=== PATIENT | female | born 1960 | race Caucasian/White ===

== ENCOUNTER 2016-12-27 12:13 | Inpatient (IN) | payer OTHER ==
[2016-12-27] MEDS ORDERED: SODIUM CHLORIDE 0.9% 1,000 ML IV STA ×2 (12:42)
[2016-12-27] MEDS ORDERED: PANTOPRAZOLE 40 MG/10 ML VIAL IVP STA (12:42)
--- NOTE | 2016-12-27 12:51 | ED ---
General Adult HPI - General Chief complaint: Abdominal Pain Stated complaint: VOMITING, DIABETIC PATIENT Time Seen by Provider: 12/27/16 12:42 Source: patient, family, RN notes reviewed, old records reviewed - History of Present Illness Initial comments: Chief complaint and history of present illness a 56-year-old female who has had nausea vomiting for 2 days. The patient is diabetic. Sugar here was 200. She had one syncopal episode at home and one syncopal episode in the waiting room. She did not fall and did not reportedly hurt her head. She does have a past history of DKA - Related Data Home Medications Medication Instructions Recorded Confirmed Gabapentin [Gabapentin] 300 mg PO BID 06/17/16 12/27/16 Insulin Glargine [Lantus] 5 unit SQ BID 06/17/16 12/27/16 Methadone [Dolophine] 10 mg PO QID 06/17/16 12/27/16 Prochlorperazine [Compazine] 10 mg PO Q8H PRN 12/27/16 12/27/16 Allergies Allergy/AdvReac Type Severity Reaction Status Date / Time Penicillins Allergy Severe Anaphylaxis Verified 12/27/16 13:16 metoclopramide HCl Allergy Unknown Verified 12/27/16 13:16 [From [facility]] Review of Systems ROS Statement: Those systems with pertinent positive or pertinent negative responses have been documented in the HPI. Review of systems. Denying any headache or visual acuity changes no chest pain or shortness of breath she has epigastric discomfort nausea vomiting no blood in the vomit at home with slightly reddened here. Reports she has been having bowel movements but not diarrhea. No skin rashes no neuro deficits. She has passed out twice yesterday and once yesterday and once today while vomiting. no Seizure activity per family member. All systems reviewed Past medical problems significant for insulin-dependent diabetes mellitus, surgeries include 3 feet of intestine with 9 subsequent revisions due to adhesions. She's also had a hysterectomy, total as well as appendectomy. Family history includes diabetes mellitus and Alzheimer's. The patient does smoke she is also smoking marijuana which her family doctor knows about I did discuss with her possibility of marijuana causing problems with vomiting as well. Patient denies alcohol use ROS Other: All systems not noted in ROS Statement are negative. Past Medical History Past Medical History: Diabetes Mellitus Additional Past Medical History / Comment(s): endometriosis, neuropathy, history of peritonitis History of Any Multi-Drug Resistant Organisms: None Reported Past Surgical History: Bowel Resection, Hysterectomy Additional Past Surgical History / Comment(s): mulitple abd surgery with adhesions Past Anesthesia/Blood Transfusion Reactions: No Reported Reaction Past Psychological History: No Psychological Hx Reported Smoking Status: Current every day smoker Past Alcohol Use History: None Reported Past Drug Use History: None Reported - Past Family History Mother Family Medical History: Diabetes Mellitus Additional Family Medical History / Comment(s): grandmother has diabetes Brother(s) Family Medical History: Diabetes Mellitus General Exam - General Exam Comments Initial Comments: General: The patient is awake and alert, in significant distress due to dry heaving small amount of blood in the bilious material. She's been doing his for 2 days at home per significant other. Eye: Pupils are equal, , extra-ocular movements are intact; there is normal conjunctiva bilaterally. No signs of icterus. Ears, nose, mouth and throat: Mildly dry mucous membranes. The neck is supple, there is no tenderness or JVD. Cardiovascular: There is a regular rate and rhythm. No murmur, rub or gallop is appreciated. Respiratory: Lungs are clear to auscultation, respirations are non-labored, breath sounds are equal. No wheezes, stridor, rales, or rhonchi. Gastrointestinal: Soft, non-distended, non-tender abdomen without masses or organomegaly noted. There is no rebound or guarding present. Active bowel sounds complained of epigastric pain. Dry heaving for 2 days Back: There is no tenderness to palpation in the midline. There is no obvious deformity. Musculoskeletal: Normal ROM, no tenderness, There is no pedal edema. There is no calf tenderness or swelling. Sensation intact. Neurological: CN II-XII intact, There are no obvious motor or sensory deficits. Coordination appears grossly intact. Speech is normal. No evidence of any neuro deficits. She did have a syncopal episode at home and one here lasting 1 minute no seizure activity. This occurred while vomiting. Skin: Skin is warm and dry and no rashes or lesions are noted. Psychiatric: Cooperative, no reported history of depression. Course Vital Signs 12/27/16 12/27/16 12:46 14:58 Temperature 98 F 97.6 F Pulse Rate 68 54 L Respiratory 20 18 Rate Blood Pressure 173/81 203/97 O2 Sat by Pulse 99 99 Oximetry Medical Decision Making - Medical Decision Making Medical decision making the patient's white count is 15.2 hemoglobin 16 hematocrit of 49 with a potassium 4.4. BUN 18 creatinine 0.76 with a GFR greater than 60. Glucose 218. Amylase lipase within normal limits. Acetone is negative. Patient was hydrated and given medications for pain and nausea. Improved significantly the emergency room but still feeling nauseated. The patient admitted for observation for intractable vomiting with insulin-dependent diabetes mellitus. Case discussed with Dr. Sun has not patient medically to his service. - Lab Data Result diagrams: 12/27/16 12:30 12/27/16 12:30 Lab Results 12/27/16 12/27/16 12/27/16 Range/Units 12:20 12:30 12:30 WBC 15.2 H (3.8-10.6) k/uL RBC 5.21 (3.80-5.40) m/uL Hgb 16.6 H (11.4-16.0) gm/dL Hct 49.2 H (34.0-46.0) % MCV 94.5 (80.0-100.0) fL MCH 31.9 (25.0-35.0) pg MCHC 33.7 (31.0-37.0) g/dL RDW 13.6 (11.5-15.5) % Plt Count 467 H (150-450) k/uL Neutrophils % 82 % Lymphocytes % 13 % Monocytes % 4 % Eosinophils % 0 % Basophils % 0 % Neutrophils # 12.4 H (1.3-7.7) k/uL Lymphocytes # 2.0 (1.0-4.8) k/uL Monocytes # 0.6 (0-1.0) k/uL Eosinophils # 0.0 (0-0.7) k/uL Basophils # 0.1 (0-0.2) k/uL Sodium 141 (137-145) mmol/L Potassium 4.4 (3.5-5.1) mmol/L Chloride 104 (98-107) mmol/L Carbon Dioxide 20 L (22-30) mmol/L Anion Gap 17 mmol/L BUN 18 H (7-17) mg/dL Creatinine 0.76 (0.52-1.04) mg/dL Est GFR (MDRD) Af Amer >60 (>60 ml/min/1.73 sqM) Est GFR (MDRD) Non-Af >60 (>60 ml/min/1.73 sqM) Glucose 218 H (74-99) mg/dL POC Glucose (mg/dL) 230 H (75-99) mg/dL POC Glu [employer] Solution Manager ID Bola Cheema Calcium 10.4 H (8.4-10.2) mg/dL Total Bilirubin 1.1 (0.2-1.3) mg/dL AST 28 (14-36) U/L ALT 20 (9-52) U/L Alkaline Phosphatase 103 (38-126) U/L Total Protein 8.7 H (6.3-8.2) g/dL Albumin 4.9 (3.5-5.0) g/dL Amylase 62 (30-110) U/L Lipase 45 (23-300) U/L Acetone, Qual Negative (Negative) Disposition Clinical Impression: Intractable vomiting without nausea, Insulin dependent diabetes mellitus Disposition: ADMITTED IP TO THIS [facility] Condition: Fair
[2016-12-27] MEDS ORDERED: ONDANSETRON 4 MG/2 ML VIAL IVP STA (13:04)
[2016-12-27 13:45] LABS: Basophils # (A) 0.1 k/uL (0-0.2); Basophils % (A) 0 %; CH 32.7; CHCM 34.7; Eosinophils % (A) 0 %; HCT 49.2 % (34.0-46.0); HDW 2.55; HGB 16.6 gm/dL (11.4-16.0); Luc # (Auto) 0.11; Luc % (Auto) 1; Lymphocytes % (A) 13 %; MCH 31.9 pg (25.0-35.0); MCHC 33.7 g/dL (31.0-37.0); MCV 94.5 fL (80.0-100.0); Mean Platelet Volume 8.1; Monocytes # (A) 0.6 k/uL (0-1.0); Monocytes % (A) 4 %; Neutrophils # (A) 12.4 k/uL (1.3-7.7); Neutrophils % (A) 82 %; RBC 5.21 m/uL (3.80-5.40); RDW 13.6 % (11.5-15.5); WBC 15.2 k/uL (3.8-10.6); WBC (Perox) 15.01
[2016-12-27 13:58] LABS: ALT 20 U/L (9-52); AST 28 U/L (14-36); Alkaline Phosphatase 103 U/L (38-126); Amylase 62 U/L (30-110); Anion Gap 17 mmol/L; Blood Urea Nitrogen 18 mg/dL (7-17); Calcium 10.4 mg/dL (8.4-10.2); Carbon Dioxide 20 mmol/L (22-30); Chloride 104 mmol/L (98-107); Glucose 218 mg/dL (74-99); Non-African American GFR(MDRD) >60 (>60 ml/min/1.73 sqM); Potassium 4.4 mmol/L (3.5-5.1); Sodium 141 mmol/L (137-145); Total Bilirubin 1.1 mg/dL (0.2-1.3); Total Protein 8.7 g/dL (6.3-8.2)
[2016-12-27 14:11] LABS: Glucose,Whole Blood 230 mg/dL (75-99)
[2016-12-27] MEDS: HYDROmorphone 1 MG/ML 1 ML SYRINGE IVP STA ×2 (15:00→16:28)
[2016-12-27] MEDS ORDERED: ONDANSETRON 4 MG/2 ML VIAL IVP PRN (15:17)
[2016-12-27] MEDS ORDERED: NALOXONE 0.4 MG/ML 1 ML VIAL IV PRN (15:17)
[2016-12-27] MEDS ORDERED: PROCHLORPERAZINE SUPPOSITORY 25 MG SUPP RECTAL PRN (15:53)
[2016-12-27] MEDS: SODIUM CHLORIDE 0.9% 1,000 ML IV SCH (16:19)
[2016-12-27] MEDS ORDERED: ENALAPRILAT 1.25 MG/ML 1 ML VIAL IVP STA (16:23)
[2016-12-27 16:39] LABS: Glucose,Whole Blood 176 mg/dL (75-99)
[2016-12-27 17:53] VITALS: BMI 23.7
[2016-12-27] MEDS ORDERED: INSULIN LISPRO (humaLOG) 300 UNIT/3 ML VIAL SQ SCH (18:00)
[2016-12-27] MEDS: METHADONE 10 MG TAB PO SCH ×2 (20:04→23:58)
[2016-12-27 20:28] LABS: Glucose,Whole Blood 104 mg/dL (75-99)
--- NOTE | 2016-12-27 20:55 | HP ---
DATE OF ADMISSION: 12/27/2016 The patient is a 56 -year-old female came in with complaints of nausea and vomiting, ( ) for two days. The patient came to the ER. The patient was retching quite a bit after which patient had a syncopal episode. Patient had one episode of diarrhea. The patient denied any flu like symptoms. The patient denied any significant abdominal pain. The patient denied any fever or chills and the patient's blood sugars have been ( ) at this time without any DKA. The patient denied any cough or runny nose. Patient denied any dysuria or urinary frequency. REVIEW OF SYSTEMS: CONSTITUTIONAL: No fever, no malaise, no fatigue. HEENT: No recent visual problems or hearing problems. Denied any sore throat. CARDIOVASCULAR: No chest pain, orthopnea, PND, no palpitations, no syncope. PULMONARY: No shortness of breath, no cough, no hemoptysis. GASTROINTESTINAL: No diarrhea, no nausea, no vomiting, no abdominal pain. Normoactive bowel sounds. NEUROLOGICAL: No headaches, no weakness, no numbness. HEMATOLOGICAL: Denies any bleeding or petechiae. GENITOURINARY: As described in history of present illness. MUSCULOSKELETAL/RHEUMATOLOGICAL: Denies any joint pain, swelling, or any muscle pain. ENDOCRINE: Denies any polyuria or polydipsia. The rest of the 14 point review of systems is negative. Home medications include: 1. Gabapentin. 2. Insulin. 3. Glargine. 4. Methadone. 5. Compazine. ALLERGIES: PENICILLINS, METOCLOPRAMIDE. PAST MEDICAL HISTORY: Significant for Type 2 diabetes mellitus, endometriosis, neuropathy, history of peritonitis in the past, bowel resection, hysterectomy in the past. SOCIAL HISTORY: The patient does smoke. Denied any alcohol abuse or any drug abuse. FAMILY HISTORY: Mother had diabetes mellitus. Grandmother has diabetes mellitus. Brother had diabetes mellitus. PHYSICAL EXAMINATION: VITAL SIGNS: Temperature 97.6, pulse 54, respiratory rate 18, blood pressure 132/80. Saturating 99% on room air. GENERAL: The patient is alert and oriented x3, not in any acute distress. Well developed, well nourished. HEENT: Pupils are round and equally reacting to light. EOMI. No scleral icterus. No conjunctival pallor. Normocephalic, atraumatic. No pharyngeal erythema. No thyromegaly. CARDIOVASCULAR: S1 and S2 present. No murmurs, rubs, or gallops. PULMONARY: Chest is clear to auscultation, no wheezing or crackles. ABDOMEN: Soft, nontender, nondistended, normoactive bowel sounds. No palpable organomegaly. MUSCULOSKELETAL: No joint swelling or deformity. EXTREMITIES: No cyanosis, clubbing, or pedal edema. NEUROLOGICAL: Gross neurological examination did not reveal any focal deficits. SKIN: No rashes. LABORATORY DATA: CBC, CMP are abnormal for elevated WBC count of 13,000. ( ) appears to be reactive leukocytosis. The patient has anion gap. We will obtain ( ) level on him and bicarbonate of 20. ASSESSMENT AND PLAN: 1. Intractable nausea and vomiting probably due to viral gastritis or gastroenteritis. Patient will be treated for gastritis with IV Protonix. The patient will be started on IV fluids. 2. Syncopal episodes ( ) secondary to intravascular volume depletion and patient will be hydrated tonight and possibility of discharge tomorrow ( ). The patient will be started on diet, advance diet as tolerated. 3. Mildly acute renal failure secondary to intravascular volume depletion from nausea, vomiting and retching. The patient may even have ( ). Obtain an echocardiogram. 4. Type 2 diabetes mellitus without any diabetic ketoacidosis. The patient will be started on her Lantus with sliding scale premeal insulin with each meal. Patient's diet will be advanced as tolerated. 5. Leukocytosis is reactive response for her nausea, vomiting and retching. No other signs of ( ) were appreciated.
[2016-12-27] MEDS ORDERED: INSULIN GLARGINE 100 UNIT/ML 10 ML VIAL SQ SCH (21:00)
[2016-12-27] MEDS: INSULIN LISPRO (humaLOG) 300 UNIT/3 ML VIAL SQ SCH (21:57)
[2016-12-27] MEDS: GABAPENTIN 300 MG CAP PO SCH (21:57)
[2016-12-27 22:18] VITALS: RESP 16
[2016-12-27 22:38] LABS: Hemoglobin A1C 5.9 % (4.2-6.1)
[2016-12-28] MEDS: SODIUM CHLORIDE 0.9% 1,000 ML IV SCH ×2 (00:01→09:16)
[2016-12-28 07:42] LABS: Basophils # (A) 0.1 k/uL (0-0.2); Basophils % (A) 1 %; CH 32.3; CHCM 33.8; Eosinophils # (A) 0.1 k/uL (0-0.7); Eosinophils % (A) 1 %; HCT 38.9 % (34.0-46.0); HDW 2.63; HGB 13.2 gm/dL (11.4-16.0); Luc # (Auto) 0.26; Luc % (Auto) 2; Lymphocytes # (A) 4.2 k/uL (1.0-4.8); Lymphocytes % (A) 35 %; MCH 32.6 pg (25.0-35.0); MCHC 33.9 g/dL (31.0-37.0); MCV 96.2 fL (80.0-100.0); Mean Platelet Volume 7.9; Monocytes # (A) 0.7 k/uL (0-1.0); Monocytes % (A) 6 %; Neutrophils # (A) 6.8 k/uL (1.3-7.7); Neutrophils % (A) 56 %; RBC 4.04 m/uL (3.80-5.40); RDW 13.7 % (11.5-15.5); WBC 12.1 k/uL (3.8-10.6)
[2016-12-28 07:53] LABS: Glucose,Whole Blood 108 mg/dL (75-99)
[2016-12-28 08:02] LABS: ALT 29 U/L (9-52); AST 53 U/L (14-36); Alkaline Phosphatase 62 U/L (38-126); Anion Gap 10 mmol/L; Blood Urea Nitrogen 12 mg/dL (7-17); Calcium 8.7 mg/dL (8.4-10.2); Carbon Dioxide 23 mmol/L (22-30); Chloride 107 mmol/L (98-107); Glucose 84 mg/dL (74-99); Non-African American GFR(MDRD) >60 (>60 ml/min/1.73 sqM); Potassium 3.7 mmol/L (3.5-5.1); Sodium 140 mmol/L (137-145); Total Bilirubin 0.9 mg/dL (0.2-1.3); Total Protein 6.8 g/dL (6.3-8.2)
[2016-12-28] MEDS ORDERED: PANTOPRAZOLE 40 MG/10 ML VIAL IV SCH (09:00)
[2016-12-28 09:08] VITALS: BP 171/79; PULSE 69; TEMP 97.4
[2016-12-28] MEDS: INSULIN LISPRO (humaLOG) 300 UNIT/3 ML VIAL SQ SCH (09:15)
[2016-12-28] MEDS: GABAPENTIN 300 MG CAP PO SCH (09:16)
[2016-12-28] MEDS: METHADONE 10 MG TAB PO SCH (09:28)
--- NOTE | 2016-12-28 12:20 | PN ---
Patient is admitted to the hospital secondary to nausea, vomiting and patient probably has gastritis or gastroenteritis. Patient is clinically doing well at this point of time. The patient had a syncopal episode secondary to intravascular volume depletion. I ordered an echocardiogram, which is still pending and although this is secondary to intravascular volume depletion, patient is clinically doing well and will be discharged today on Prilosec for 14 days and patient was seen and examined on the day of discharge. Vitals signs are stable. PHYSICAL EXAMINATION: GENERAL: The patient is alert and oriented x3, not in any acute distress. Well developed, well nourished. HEENT: Pupils are round and equally reacting to light. EOMI. No scleral icterus. No conjunctival pallor. Normocephalic, atraumatic. No pharyngeal erythema. No thyromegaly. CARDIOVASCULAR: S1 and S2 present. No murmurs, rubs, or gallops. PULMONARY: Chest is clear to auscultation, no wheezing or crackles. ABDOMEN: Soft, nontender, nondistended, normoactive bowel sounds. No palpable organomegaly. MUSCULOSKELETAL: No joint swelling or deformity. EXTREMITIES: No cyanosis, clubbing, or pedal edema. NEUROLOGICAL: Gross neurological examination did not reveal any focal deficits. SKIN: No rashes. FINAL DIAGNOSES: 1. Syncope is secondary to intravascular volume depletion. 2. Nausea, vomiting secondary to gastritis or gastroenteritis, symptoms of which resolved completely at this time point of time. 3. Mild acute renal failure secondary to intravascular volume depletion, which resolved. 4. Type 2 diabetes mellitus without any ketoacidosis. Patient can resume her home regimen, follow with primary care physician, Dr. Tanner Sullivan in 3 to 7 days. DISCHARGE DIET: Diabetic 1800 calorie diet. Patient will be discharged on 14 days of Prilosec. Activity as tolerated.
--- NOTE | 2016-12-29 15:33 | ECHOF ---
Referral Reason:Syncope MEASUREMENTS -------- HEIGHT: 167.6 cm WEIGHT: 66.7 kg BP: 112/64 RVIDd: 3.5 cm (< 3.3) IVSd: 1.0 cm (0.6 - 1.1) LVIDd: 4.1 cm (3.9 - 5.3) LVPWd: 1.0 cm (0.6 - 1.1) IVSs: 1.6 cm LVIDs: 3.0 cm LVPWs: 1.9 cm LA Diam: 3.0 cm (2.7 - 3.8) LAESV Index (A-L): 28.58 ml/m Ao Diam: 3.1 cm (2.0 - 3.7) AV Cusp: 1.7 cm (1.5 - 2.6) LA Diam: 3.2 cm (2.7 - 3.8) MV EXCURSION: 12.842 mm (> 18.000) MV EF SLOPE: 98 mm/s (70 - 150) EPSS: 0.3 cm MV E Carlos: 1.07 m/s MV DecT: 190 ms MV A Carlos: 0.74 m/s MV E/A Ratio: 1.43 RAP: 5.00 mmHg RVSP: 33.06 mmHg FINDINGS -------- Sinus rhythm. This was a technically good study. Left ventricular wall thickness is normal. Overall left ventricular systolic function is normal with, an EF between 55 - 60 %. The right ventricle is mildly enlarged. Normal LA size by volume 22+/-6 ml/m2. The right atrium is normal in size. There is mild aortic valve sclerosis. Mild mitral annular calcification present. There is trace mitral regurgitation. Mild tricuspid regurgitation present. Right ventricular systolic pressure is normal at < 35 mmHg. Pulmonic valve appears structurally normal. The aortic root size is normal. Normal inferior vena cava with normal inspiratory collapse consistent with estimated right atrial pressure of 5 mmHg. Echo free space may represent effusion or a pericardial fat pad. CONCLUSIONS -------- 1. Sinus rhythm. 2. There is trace mitral regurgitation. 3. Mild tricuspid regurgitation present. 4. Right ventricular systolic pressure is normal at < 35 mmHg. 5. Pulmonic valve appears structurally normal. 6. The aortic root size is normal. 7. Normal inferior vena cava with normal inspiratory collapse consistent with estimated right atrial pressure of 5 mmHg. 8. Echo free space may represent effusion or a pericardial fat pad. 9. This was a technically good study. 10. Left ventricular wall thickness is normal. 11. Overall left ventricular systolic function is normal with, an EF between 55 - 60 %. 12. The right ventricle is mildly enlarged. 13. Normal LA size by volume 22+/-6 ml/m2. 14. The right atrium is normal in size. 15. There is mild aortic valve sclerosis. 16. Mild mitral annular calcification present. TEAR DOWN MATCHER: Anthony Ward RDCS
== END 2016-12-28 13:05 | disposition home or self-care (01) | DRG 392 ==
LOC: EC 12:13 → 5MS5E 15:18
PROVIDERS: ADMIT Internal Medicine; ATTEND Internal Medicine
DX: A08.4 Viral intestinal infection, unspecified (principal); N17.9 Acute kidney failure, unspecified; E11.40 Type 2 diabetes mellitus with diabetic neuropathy, unspecified; E86.9 Volume depletion, unspecified; I49.9 Cardiac arrhythmia, unspecified; D72.829 Elevated white blood cell count, unspecified; R55 Syncope and collapse; F17.200 Nicotine dependence, unspecified, uncomplicated; Z88.0 Allergy status to penicillin; Z88.8 Allergy status to other drugs, medicaments and biological substances; Z83.3 Family history of diabetes mellitus; Z86.19 Personal history of other infectious and parasitic diseases; Z87.19 Personal history of other diseases of the digestive system; Z90.49 Acquired absence of other specified parts of digestive tract; Z90.710 Acquired absence of both cervix and uterus; Z79.4 Long term (current) use of insulin; Z71.89 Other specified counseling; Z82.0 Family history of epilepsy and other diseases of the nervous system; Z79.891 Long term (current) use of opiate analgesic; Z79.899 Other long term (current) drug therapy; Z87.42 Personal history of other diseases of the female genital tract
CPT/HCPCS: 36415; 80053; 82009; 82150; 83036; 83605; 83690; 85025; 93005; 93306; 96361; 96374; 96375; 99285

== ENCOUNTER 2018-09-01 04:38 | Emergency (ER) | payer OTHER ==
[2018-09-01] MEDS ORDERED: ONDANSETRON 4 MG/2 ML VIAL IVP STA (05:04)
[2018-09-01] MEDS ORDERED: SODIUM CHLORIDE 0.9% 1,000 ML IV ONE (05:06)
[2018-09-01] MEDS ORDERED: MAG HYDROX/AL HYDROX/SIMETH 30 ML, HYOSCYAMINE ELIXIR 10 ML, CIMETIDINE HCL 300 MG, LID... PO STA ×4 (05:06)
--- NOTE | 2018-09-01 05:07 | ED ---
Abdominal Pain HPI - General Chief Complaint: Abdominal Pain Stated Complaint: Nausea, Vomitting Time Seen by Provider: 09/01/18 04:54 Source: EMS Mode of arrival: EMS Limitations: no limitations - History of Present Illness Initial Comments: This patient is a 58-year-old woman resenting to be evaluated for nausea and vomiting as well as epigastric abdominal pain. She states that the nausea started first and that was at 8 AM yesterday. Shortly after that she started having vomiting and has had she states over 10 episodes of vomiting throughout the course the day. She also has been having some epigastric abdominal pain that she describes as severe cramps. They come and go. She has not noted worsening or relieving factors. She had a similar episode to this about a year ago and was treated here for it. MD Complaint: abdominal pain (Epigastric pain), other (Nausea and vomiting) Onset/Timin -: hour(s) Location: epigastric Radiation: none Migration to: no migration Severity: severe Quality: cramping Consistency: intermittent Improves With: nothing Worsens With: nothing Associated Symptoms: nausea, vomiting - Related Data Home Medications Medication Instructions Recorded Confirmed Gabapentin 300 mg PO BID 06/17/16 12/27/16 Insulin Glargine [Lantus] 5 unit SQ BID 06/17/16 12/27/16 Methadone [Dolophine] 10 mg PO QID 06/17/16 12/27/16 Prochlorperazine [Compazine] 10 mg PO Q8H PRN 12/27/16 12/27/16 Previous Rx's Medication Instructions Recorded Omeprazole [PriLOSEC] 40 mg PO -BRKFST #14 capsule. 12/28/16 Famotidine [Pepcid] 20 mg PO BID #14 tablet 09/01/18 Ondansetron Odt [Zofran ODT] 4 mg PO Q8HR PRN #10 tab 09/01/18 Allergies Allergy/AdvReac Type Severity Reaction Status Date / Time Penicillins Allergy Severe Anaphylaxis Verified 12/27/16 13:16 metoclopramide HCl Allergy Unknown Verified 12/27/16 13:16 [From [facility]] Review of Systems ROS Statement: Those systems with pertinent positive or pertinent negative responses have been documented in the HPI. ROS Other: All systems not noted in ROS Statement are negative. Constitutional: Denies: fever, chills Respiratory: Denies: cough, dyspnea Cardiovascular: Denies: chest pain, palpitations, edema Gastrointestinal: Reports: abdominal pain, nausea, vomiting. Denies: diarrhea, constipation Genitourinary: Denies: dysuria, hematuria Musculoskeletal: Denies: back pain Skin: Denies: rash Neurological: Denies: headache, weakness, numbness Past Medical History Past Medical History: Diabetes Mellitus Additional Past Medical History / Comment(s): endometriosis, neuropathy, history of peritonitis History of Any Multi-Drug Resistant Organisms: None Reported Past Surgical History: Bowel Resection, Hysterectomy Additional Past Surgical History / Comment(s): mulitple abd surgery with adhesions Past Anesthesia/Blood Transfusion Reactions: No Reported Reaction Past Psychological History: No Psychological Hx Reported Smoking Status: Current every day smoker Past Alcohol Use History: None Reported Past Drug Use History: None Reported - Past Family History Mother Family Medical History: Diabetes Mellitus Additional Family Medical History / Comment(s): grandmother had diabetes Brother(s) Family Medical History: Diabetes Mellitus General Exam Limitations: no limitations General appearance: alert, in no apparent distress Head exam: Present: atraumatic, normocephalic Eye exam: Present: normal appearance. Absent: scleral icterus, conjunctival injection ENT exam: Present: mucous membranes dry Neck exam: Present: normal inspection Respiratory exam: Present: normal lung sounds bilaterally. Absent: respiratory distress, wheezes, rales, rhonchi, stridor Cardiovascular Exam: Present: regular rate, normal rhythm, normal heart sounds. Absent: systolic murmur, diastolic murmur, rubs, gallop GI/Abdominal exam: Present: soft. Absent: distended, tenderness, guarding, rebound, rigid, mass Extremities exam: Present: normal inspection, normal capillary refill. Absent: pedal edema, calf tenderness Neurological exam: Present: alert Skin exam: Present: warm, dry, intact, normal color. Absent: rash Course Vital Signs 09/01/18 09/01/18 09/01/18 04:41 04:48 07:02 Temperature 99.2 F Pulse Rate 77 72 Respiratory 17 17 Rate Blood Pressure 166/117 143/81 O2 Sat by Pulse 97 97 Oximetry Medical Decision Making - Medical Decision Making Patient is in resolution of the all of her symptoms with treatment here and states she is feeling better, well enough to go home. We discussed further follow-up including return parameters. - Lab Data Result diagrams: 09/01/18 05:29 09/01/18 05:29 Lab Results 09/01/18 09/01/18 09/01/18 Range/Units 05:29 05:29 05:29 WBC 12.0 H (3.8-10.6) k/uL RBC 4.68 (3.80-5.40) m/uL Hgb 14.6 (11.4-16.0) gm/dL Hct 43.4 (34.0-46.0) % MCV 92.9 (80.0-100.0) fL MCH 31.1 (25.0-35.0) pg MCHC 33.5 (31.0-37.0) g/dL RDW 14.4 (11.5-15.5) % Plt Count 415 (150-450) k/uL Neutrophils % 84 % Lymphocytes % 12 % Monocytes % 2 % Eosinophils % 1 % Basophils % 0 % Neutrophils # 10.1 H (1.3-7.7) k/uL Lymphocytes # 1.4 (1.0-4.8) k/uL Monocytes # 0.2 (0-1.0) k/uL Eosinophils # 0.1 (0-0.7) k/uL Basophils # 0.0 (0-0.2) k/uL Sodium 137 (137-145) mmol/L Potassium 4.1 (3.5-5.1) mmol/L Chloride 109 H (98-107) mmol/L Carbon Dioxide 17 L (22-30) mmol/L Anion Gap 11 mmol/L BUN 15 (7-17) mg/dL Creatinine 0.57 (0.52-1.04) mg/dL Est GFR (CKD-EPI)AfAm >90 (>60 ml/min/1.73 sqM) Est GFR (CKD-EPI)NonAf >90 (>60 ml/min/1.73 sqM) Glucose 227 H (74-99) mg/dL Calcium 9.4 (8.4-10.2) mg/dL Total Bilirubin 0.8 (0.2-1.3) mg/dL AST 19 (14-36) U/L ALT 19 (9-52) U/L Alkaline Phosphatase 86 (38-126) U/L Troponin I <0.012 (0.000-0.034) ng/mL Total Protein 7.1 (6.3-8.2) g/dL Albumin 4.0 (3.5-5.0) g/dL Amylase 63 (30-110) U/L Lipase 87 (23-300) U/L - EKG Data -: EKG Interpreted by Me EKG shows normal: sinus rhythm, axis (Normal), intervals (Normal), QRS complexes (Normal), ST-T waves (Normal) Rate: normal (Rate approximately 62 bpm) Interpretation: normal EKG Disposition Clinical Impression: Gastritis, Hyperglycemia due to type 2 diabetes mellitus Disposition: HOME SELF-CARE Condition: Good Instructions: Gastritis (ED) Prescriptions: Famotidine [Pepcid] 20 mg PO BID #14 tablet Ondansetron Odt [Zofran ODT] 4 mg PO Q8HR PRN #10 tab PRN Reason: Nausea Is patient prescribed a controlled substance at d/c from ED?: No Referrals: Tanner Sullivan MD [Primary Care Provider] - 1-2 days
[2018-09-01 05:45] LABS: Basophils % (A) 0 %; Eosinophils # (A) 0.1 k/uL (0-0.7); Eosinophils % (A) 1 %; HCT 43.4 % (34.0-46.0); HGB 14.6 gm/dL (11.4-16.0); Lymphocytes # (A) 1.4 k/uL (1.0-4.8); Lymphocytes % (A) 12 %; MCH 31.1 pg (25.0-35.0); MCHC 33.5 g/dL (31.0-37.0); MCV 92.9 fL (80.0-100.0); Monocytes # (A) 0.2 k/uL (0-1.0); Monocytes % (A) 2 %; Neutrophils # (A) 10.1 k/uL (1.3-7.7); Neutrophils % (A) 84 %; Platelet Count 415 k/uL (150-450); RBC 4.68 m/uL (3.80-5.40); RDW 14.4 % (11.5-15.5)
[2018-09-01 05:55] LABS: ALT 19 U/L (9-52); AST 19 U/L (14-36); Alkaline Phosphatase 86 U/L (38-126); Amylase 63 U/L (30-110); Anion Gap 11 mmol/L; Blood Urea Nitrogen 15 mg/dL (7-17); Calcium 9.4 mg/dL (8.4-10.2); Carbon Dioxide 17 mmol/L (22-30); Chloride 109 mmol/L (98-107); Glucose 227 mg/dL (74-99); Lipase 87 U/L (23-300); Potassium 4.1 mmol/L (3.5-5.1); Sodium 137 mmol/L (137-145); Total Bilirubin 0.8 mg/dL (0.2-1.3); Total Protein 7.1 g/dL (6.3-8.2)
[2018-09-01] MEDS ORDERED: METHADONE 10 MG TAB PO STA (06:26)
[2018-09-01 07:58] VITALS: BP 143/88; PULSE 70; RESP 18; TEMP 98
== END 2018-09-01 07:55 | disposition home or self-care (01) ==
LOC: EC 04:38
DX: K29.70 Gastritis, unspecified, without bleeding (principal); E11.65 Type 2 diabetes mellitus with hyperglycemia; E11.40 Type 2 diabetes mellitus with diabetic neuropathy, unspecified; F17.200 Nicotine dependence, unspecified, uncomplicated; Z79.4 Long term (current) use of insulin; Z79.899 Other long term (current) drug therapy; Z88.0 Allergy status to penicillin; Z88.8 Allergy status to other drugs, medicaments and biological substances; Z83.3 Family history of diabetes mellitus
CPT/HCPCS: 36415; 93005; 80053; 82150; 83690; 84484; 85025; 99284; 96374; 96361 ×3; J2405; S0109

== ENCOUNTER 2018-09-01 21:48 | Emergency (ER) | payer OTHER ==
[2018-09-01 21:53] VITALS: BP 166/100; PULSE 83; RESP 20; TEMP 98.6
[2018-09-01] MEDS ORDERED: SODIUM CHLORIDE 0.9% 1,000 ML IV STA ×2 (22:38)
[2018-09-01] MEDS ORDERED: KETOROLAC 30 MG/ML 1 ML VIAL IVP STA (23:08)
[2018-09-01] MEDS ORDERED: ONDANSETRON 4 MG/2 ML VIAL IVP STA (23:08)
[2018-09-01] MEDS ORDERED: MAG HYDROX/AL HYDROX/SIMETH 30 ML, HYOSCYAMINE ELIXIR 10 ML, CIMETIDINE HCL 300 MG, LID... PO STA ×4 (23:08)
[2018-09-01 23:38] LABS: Basophils % (A) 0 %; Eosinophils # (A) 0.2 k/uL (0-0.7); Eosinophils % (A) 2 %; HCT 42.3 % (34.0-46.0); HGB 13.9 gm/dL (11.4-16.0); Lymphocytes # (A) 3.4 k/uL (1.0-4.8); Lymphocytes % (A) 35 %; MCH 31.2 pg (25.0-35.0); MCV 94.8 fL (80.0-100.0); Mean Platelet Volume 6.6; Monocytes # (A) 0.5 k/uL (0-1.0); Monocytes % (A) 5 %; Neutrophils # (A) 5.5 k/uL (1.3-7.7); Neutrophils % (A) 57 %; Platelet Count 370 k/uL (150-450); RBC 4.46 m/uL (3.80-5.40); RDW 14.2 % (11.5-15.5); WBC 9.7 k/uL (3.8-10.6)
[2018-09-01 23:51] LABS: ALT 21 U/L (9-52); AST 19 U/L (14-36); Alkaline Phosphatase 77 U/L (38-126); Amylase 47 U/L (30-110); Anion Gap 7 mmol/L; Blood Urea Nitrogen 12 mg/dL (7-17); Calcium 9.7 mg/dL (8.4-10.2); Carbon Dioxide 20 mmol/L (22-30); Chloride 111 mmol/L (98-107); Glucose 146 mg/dL (74-99); Lipase 42 U/L (23-300); Sodium 138 mmol/L (137-145); Total Bilirubin 0.5 mg/dL (0.2-1.3); Total Protein 6.9 g/dL (6.3-8.2)
--- NOTE | 2018-09-02 | ED ---
Abdominal Pain HPI - General Source: patient, RN notes reviewed, old records reviewed Mode of arrival: ambulatory Limitations: no limitations <Marisa Augustin - Last Filed: 09/02/18 04:48> <Rosa Maria Wright - Last Filed: 09/02/18 05:12> - General Chief Complaint: Abdominal Pain Stated Complaint: Vomiting Time Seen by Provider: 09/01/18 22:22 - History of Present Illness Initial Comments: 58-year-old female chief complaint of intractable nausea and vomiting. She seemed emergency department yesterday for similar complaints. Workup was negative at that time. Patient started, was feeling well this morning. She some soup and then subsequent developed vomiting. She reports that the muscles in her chest wall and abdomen are very sore due to dry heaving. Patient states that she's had no fevers or chills. She's had normal bowel habits. She denies any back pain or abdominal distention. (Marisa Augustin) - Related Data Home Medications Medication Instructions Recorded Confirmed Gabapentin 300 mg PO BID 06/17/16 09/01/18 metFORMIN HCL [Glucophage] 500 mg PO BID 09/01/18 09/01/18 Previous Rx's Medication Instructions Recorded Ketorolac [Toradol] 10 mg PO TID #20 tab 09/02/18 Nitrofurantoin Monohyd/M-Cryst 100 mg PO Q12HR #14 cap 09/02/18 [Macrobid] Ondansetron Odt [Zofran Odt] 4 mg PO Q8HR PRN #8 tab 09/02/18 Sucralfate [Carafate] 1 gm PO ACHS #20 tablet 09/02/18 Allergies Allergy/AdvReac Type Severity Reaction Status Date / Time Penicillins Allergy Severe Anaphylaxis Verified 09/01/18 22:15 metoclopramide HCl Allergy Unknown Verified 09/01/18 22:15 [From Reglan] Review of Systems ROS Other: All systems not noted in ROS Statement are negative. <Marisa Augustin - Last Filed: 09/02/18 04:48> ROS Other: All systems not noted in ROS Statement are negative. <Rosa Maria Wright - Last Filed: 09/02/18 05:12> ROS Statement: Those systems with pertinent positive or pertinent negative responses have been documented in the HPI. Past Medical History Past Medical History: Diabetes Mellitus Additional Past Medical History / Comment(s): endometriosis, neuropathy, history of peritonitis History of Any Multi-Drug Resistant Organisms: None Reported Past Surgical History: Bowel Resection, Hysterectomy Additional Past Surgical History / Comment(s): mulitple abd surgery with adhesions Past Anesthesia/Blood Transfusion Reactions: No Reported Reaction Past Psychological History: No Psychological Hx Reported Smoking Status: Former smoker Past Alcohol Use History: None Reported Past Drug Use History: None Reported - Past Family History Mother Family Medical History: Diabetes Mellitus Additional Family Medical History / Comment(s): grandmother had diabetes Brother(s) Family Medical History: Diabetes Mellitus <Marisa Augustin - Last Filed: 09/02/18 04:48> General Exam Limitations: no limitations <Marisa Augustin - Last Filed: 09/02/18 04:48> <Rosa Maria Wright - Last Filed: 09/02/18 05:12> - General Exam Comments Initial Comments: Well-appearing 58-year-old female. Patient appears in no significant distress. General: Well appearing, well nourished, in no distress. Oriented x 3, normal mood and affect . Ambulating without difficulty. Skin: Good turgor, no rash, unusual bruising or prominent lesions Hair: Normal texture and distribution. HEENT: Head: Normocephalic, atraumatic, no visible or palpable masses, depressions, or scaring. Eyes: Visual acuity intact, conjunctiva clear, sclera non-icteric, EOM intact, PERRL. Ears: EACs clear, TMs translucent & cone of light visualized. hearing intact. Nose: No external lesions, mucosa non-inflamed, septum and turbinates normal Mouth: Mucous membranes moist, no mucosal lesions. Teeth/Gums: No obvious caries or periodontal disease. No gingival inflammation or significant resorption. Pharynx: Mucosa non-inflamed, no tonsillar hypertrophy or exudate Neck: Supple, without lesions, bruits, or adenopathy, thyroid non-enlarged and non-tender Heart: No cardiomegaly or thrills; regular rate and rhythm, no murmur or gallop Lungs: Clear to auscultation and percussion Abdomen: Bowel sounds normal, no tenderness, organomegaly, masses, or hernia Back: Spine normal without deformity or tenderness, no CVA tenderness Extremities: No amputations or deformities, cyanosis, edema or varicosities, peripheral pulses intact Musculoskeletal: Normal gait and station. No misalignment, asymmetry, crepitation, defects, tenderness, masses, effusions, decreased range of motion, instability, atrophy or abnormal strength or tone in the head, neck, spine, ribs , pelvis or extremities. Neurologic: CN 2-12 normal. Sensation to pain, touch, and proprioception normal. DTRs normal in upper and lower extremities. No pathologic reflexes. Psychiatric: Oriented X3, intact recent and remote memory, judgment and insight , normal mood and affect. (Marisa Augustin) Vital Signs 09/01/18 21:51 Temperature 98.6 F Pulse Rate 83 Respiratory 20 Rate Blood Pressure 166/100 O2 Sat by Pulse 99 Oximetry Medical Decision Making - Lab Data Result diagrams: 09/01/18 23:27 09/01/18 23:27 - Radiology Data Radiology results: report reviewed <Marisa Augustin - Last Filed: 09/02/18 04:48> - Lab Data Result diagrams: 09/01/18 23:27 09/01/18 23:27 <Rosa Maria Wright - Last Filed: 09/02/18 05:12> - Medical Decision Making 4-year-old female presents emergency department today with chief complaint of intractable nausea vomiting, complaints of some epigastric abdominal pain and discomfort and muscle soreness due to dry heaving. Patient lab work today is improved from her visit yesterday. White blood cell count was lower at this time. We did complete a urinalysis which is positive for infection and many white blood cells red blood cells. Urine culture completed. Patient also complained of some discomfort and reevaluation. Due to the second visit we did complete the computed tomography scan today. This was negative for any acute intra-abdominal process. Discussed this and will treat the Patient with nausea and vomiting and some gastritis with Carafate and Zofran. We'll discharge the Patient with antibiotic, Macrobid for UTI. Discussed return parameters. ( Marisa Augustin) I was available for consultation in the emergency department. The history and physical exam were done by the midlevel provider. I was consulted for this patient's care. I reviewed the case with the midlevel provider and based on their presentation of the patient, I agree with the assessment, medical decision making and plan of care as documented. (Rosa Maria Wright) - Lab Data Lab Results 09/01/18 09/01/18 09/01/18 Range/Units 23:27 23:27 23:27 WBC 9.7 (3.8-10.6) k/uL RBC 4.46 (3.80-5.40) m/uL Hgb 13.9 (11.4-16.0) gm/dL Hct 42.3 (34.0-46.0) % MCV 94.8 (80.0-100.0) fL MCH 31.2 (25.0-35.0) pg MCHC 33.0 (31.0-37.0) g/dL RDW 14.2 (11.5-15.5) % Plt Count 370 (150-450) k/uL Neutrophils % 57 % Lymphocytes % 35 % Monocytes % 5 % Eosinophils % 2 % Basophils % 0 % Neutrophils # 5.5 (1.3-7.7) k/uL Lymphocytes # 3.4 (1.0-4.8) k/uL Monocytes # 0.5 (0-1.0) k/uL Eosinophils # 0.2 (0-0.7) k/uL Basophils # 0.0 (0-0.2) k/uL Sodium 138 (137-145) mmol/L Potassium 4.0 (3.5-5.1) mmol/L Chloride 111 H (98-107) mmol/L Carbon Dioxide 20 L (22-30) mmol/L Anion Gap 7 mmol/L BUN 12 (7-17) mg/dL Creatinine 0.60 (0.52-1.04) mg/dL Est GFR (CKD-EPI)AfAm >90 (>60 ml/min/1.73 sqM) Est GFR (CKD-EPI)NonAf >90 (>60 ml/min/1.73 sqM) Glucose 146 H (74-99) mg/dL Calcium 9.7 (8.4-10.2) mg/dL Total Bilirubin 0.5 (0.2-1.3) mg/dL AST 19 (14-36) U/L ALT 21 (9-52) U/L Alkaline Phosphatase 77 (38-126) U/L Troponin I <0.012 (0.000-0.034) ng/mL Total Protein 6.9 (6.3-8.2) g/dL Albumin 4.0 (3.5-5.0) g/dL Amylase 47 (30-110) U/L Lipase 42 (23-300) U/L Urine Color Urine Appearance (Clear) Urine pH (5.0-8.0) Ur Specific [place] (1.001-1.035) Urine Protein (Negative) Urine Glucose (UA) (Negative) Urine Ketones (Negative) Urine Blood (Negative) Urine Nitrite (Negative) Urine Bilirubin (Negative) Urine Urobilinogen (<2.0) mg/dL Ur Leukocyte Esterase (Negative) Urine RBC (0-5) /hpf Urine WBC (0-5) /hpf Ur Squamous Epith Cells (0-4) /hpf Calcium Oxalate Crystal (None) /hpf Urine Mucus (None) /hpf Urine Opiates Screen (NotDetected) Ur Oxycodone Screen (NotDetected) Urine Methadone Screen (NotDetected) Ur Propoxyphene Screen (NotDetected) Ur Barbiturates Screen (NotDetected) U Tricyclic Antidepress (NotDetected) Ur Phencyclidine Scrn (NotDetected) Ur Amphetamines Screen (NotDetected) U Methamphetamines Scrn (NotDetected) U Benzodiazepines Scrn (NotDetected) Urine Cocaine Screen (NotDetected) U Marijuana (THC) Screen (NotDetected) 09/02/18 Range/Units 00:30 WBC (3.8-10.6) k/uL RBC (3.80-5.40) m/uL Hgb (11.4-16.0) gm/dL Hct (34.0-46.0) % MCV (80.0-100.0) fL MCH (25.0-35.0) pg MCHC (31.0-37.0) g/dL RDW (11.5-15.5) % Plt Count (150-450) k/uL Neutrophils % % Lymphocytes % % Monocytes % % Eosinophils % % Basophils % % Neutrophils # (1.3-7.7) k/uL Lymphocytes # (1.0-4.8) k/uL Monocytes # (0-1.0) k/uL Eosinophils # (0-0.7) k/uL Basophils # (0-0.2) k/uL Sodium (137-145) mmol/L Potassium (3.5-5.1) mmol/L Chloride (98-107) mmol/L Carbon Dioxide (22-30) mmol/L Anion Gap mmol/L BUN (7-17) mg/dL Creatinine (0.52-1.04) mg/dL Est GFR (CKD-EPI)AfAm (>60 ml/min/1.73 sqM) Est GFR (CKD-EPI)NonAf (>60 ml/min/1.73 sqM) Glucose (74-99) mg/dL Calcium (8.4-10.2) mg/dL Total Bilirubin (0.2-1.3) mg/dL AST (14-36) U/L ALT (9-52) U/L Alkaline Phosphatase (38-126) U/L Troponin I (0.000-0.034) ng/mL Total Protein (6.3-8.2) g/dL Albumin (3.5-5.0) g/dL Amylase (30-110) U/L Lipase (23-300) U/L Urine Color Yellow Urine Appearance Turbid H (Clear) Urine pH 6.0 (5.0-8.0) Ur Specific [place] 1.019 (1.001-1.035) Urine Protein Trace H (Negative) Urine Glucose (UA) Trace H (Negative) Urine Ketones Negative (Negative) Urine Blood Trace H (Negative) Urine Nitrite Negative (Negative) Urine Bilirubin Negative (Negative) Urine Urobilinogen <2.0 (<2.0) mg/dL Ur Leukocyte Esterase Large H (Negative) Urine RBC 16 H (0-5) /hpf Urine WBC 38 H (0-5) /hpf Ur Squamous Epith Cells 30 H (0-4) /hpf Calcium Oxalate Crystal Many H (None) /hpf Urine Mucus Moderate H (None) /hpf Urine Opiates Screen Not Detected (NotDetected) Ur Oxycodone Screen Not Detected (NotDetected) Urine Methadone Screen Detected H (NotDetected) Ur Propoxyphene Screen Not Detected (NotDetected) Ur Barbiturates Screen Not Detected (NotDetected) U Tricyclic Antidepress Not Detected (NotDetected) Ur Phencyclidine Scrn Not Detected (NotDetected) Ur Amphetamines Screen Not Detected (NotDetected) U Methamphetamines Scrn Not Detected (NotDetected) U Benzodiazepines Scrn Not Detected (NotDetected) Urine Cocaine Screen Not Detected (NotDetected) U Marijuana (THC) Screen Detected H (NotDetected) 09/02/18 02:21 EKG performed at 2330 and shows sinus rhythm with sinus arrhythmia. Normal EKG. Ventricular rate of 70 bpm. Normal S1 46 most seconds. QRS duration 76. QT QTc is 3/440 ms. No evidence of ST elevation or T-wave inversion. (Marisa Augustin) - Radiology Data Nonobstructing right renal colliculi that appeared new compared old computed tomography scan. No acute abdomen and pelvis. Increased atelectasis in the lung base compared old exam. (Marisa Augustin) Disposition Is patient prescribed a controlled substance at d/c from ED?: No Time of Disposition: 01:33 <Marisa Augustin - Last Filed: 09/02/18 04:48> <Rosa Maria Wright - Last Filed: 09/02/18 05:12> Clinical Impression: UTI (urinary tract infection), Nausea & vomiting, Pain in rib Disposition: HOME SELF-CARE Condition: Good Instructions: Urinary Tract Infection in Women (ED), Costochondritis (ED) Additional Instructions: Patient advised to follow-up with primary care provider. Return to emergency department if any alarming signs or symptoms occur. Continue use nausea medication use the medications as prescribed for rib pain and to call the lining of her stomach. Take the antibiotic completely. Prescriptions: Ketorolac [Toradol] 10 mg PO TID #20 tab Nitrofurantoin Monohyd/M-Cryst [Macrobid] 100 mg PO Q12HR #14 cap Ondansetron Odt [Zofran Odt] 4 mg PO Q8HR PRN #8 tab PRN Reason: Nausea Sucralfate [Carafate] 1 gm PO ACHS #20 tablet Referrals: Tanner Sullivan MD [Primary Care Provider] - 1-2 days
[2018-09-02 00:43] LABS: Appearance,Urine Turbid (Clear); Bilirubin,Urine Negative (Negative); Blood,Urine Trace (Negative); Calcium Oxalate Crystals,Urine Many /hpf; Color,Urine Yellow; Glucose,Urine (UA) Trace (Negative); Ketones,Urine Negative (Negative); Leukocyte Esterase,Urine Large (Negative); Mucus,Urine Moderate /hpf; Nitrite,Urine Negative (Negative); Protein,Urine Trace (Negative); RBC,Urine 16 /hpf (0-5); Specific Gravity,Urine 1.019 (1.001-1.035); Squamous Epithelial Cell,Urine 30 /hpf (0-4); Urobilinogen,Urine <2.0 mg/dL (<2.0); WBC,Urine 38 /hpf (0-5)
[2018-09-02 00:48] LABS: Amphetamine Screen,Urine Not Detected (NotDetected); Barbiturate Screen,Urine Not Detected (NotDetected); Benzodiazepines Screen,Urine Not Detected (NotDetected); Cocaine Screen,Urine Not Detected (NotDetected); Methadone Screen, Urine Detected (NotDetected); Opiate Screen,Urine Not Detected (NotDetected); Oxycodone Screen, Urine Not Detected (NotDetected); Phencyclidine Screen,Urine Not Detected (NotDetected); Tricyclic Antidepressant,Urine Not Detected (NotDetected); Urn Cannabinoid Scrn Detected (NotDetected)
[2018-09-02] MEDS ORDERED: ORPHENADRINE 30 MG/ML 2 ML VIAL IVP STA (01:24)
--- NOTE | 2018-09-02 01:30 | CT ---
EXAMINATION TYPE: CT abdomen pelvis w con DATE OF EXAM: 09/02/2018 COMPARISON: 06/17/2016 HISTORY: flank pain CT DLP: 718.40 mGycm Automated exposure control for dose reduction was used. TECHNIQUE: Helical acquisition of images was performed from the lung bases through the pelvis. CONTRAST: Performed without Oral Contrast and with IV Contrast, patient injected with 100 mL of Isovue 300. FINDINGS: There is subsegmental atelectasis at the lung bases. Heart size is normal. There is no pericardial ef fusion. There is no pleural effusion. There is probably small hiatal hernia. The stomach is otherwise normal. Liver spleen pancreas gallbla dder appear normal. Bile ducts are not dilated. There is no adrenal mass. The kidneys show satisfactory contrast opacification. There is no hydroneph rosis. There are a few small right renal calculi. There is no retroperitoneal adenopathy. Ureters are not dilated. Bladder distends smoothly. The cecum is in the pelvis. There are clips probably from ap pendectomy. Cecum measures 7.5 cm but there is no wall thickening. I see no mesenteric edema or adenopathy. I see no intestinal wall thickening. There is no inguinal he rnia. The lumbar spine is intact. Bony pelvis is intact. There is no compression fracture. There is h ysterectomy. IMPRESSION: THERE ARE NONOBSTRUCTING RIGHT RENAL CALCULI THAT APPEAR NEW COMPARED TO OLD CT SCAN. NO SIGN OF ACUT E ABDOMEN AND PELVIS. THERE IS INCREASED SUBSEGMENTAL ATELECTASIS AT THE LUNG BASES COMPARED TO OLD E XAM.
[2018-09-02] MEDS ORDERED: NITROFURANTOIN MONOHYD/M-CRYST 100 MG CAP PO STA (01:36)
== END 2018-09-02 01:51 | disposition home or self-care (01) ==
LOC: EC 21:48
DX: N39.0 Urinary tract infection, site not specified (principal); R11.2 Nausea with vomiting, unspecified; R07.81 Pleurodynia; E11.9 Type 2 diabetes mellitus without complications; Z79.84 Long term (current) use of oral hypoglycemic drugs; Z79.899 Other long term (current) drug therapy; Z87.891 Personal history of nicotine dependence; Z88.0 Allergy status to penicillin; Z88.8 Allergy status to other drugs, medicaments and biological substances
CPT/HCPCS: 36415; 93005; 80053; 82150; 83690; 84484; 85025; 81001; 80306; 74177; 99285; 96374; 96375 ×2; 96361 ×2; J2360; J2405; J1885; Q9967

== ENCOUNTER 2018-09-06 02:21 | Emergency (ER) | payer OTHER ==
[2018-09-06] MEDS ORDERED: SODIUM CHLORIDE 0.9% 1,000 ML IV STA (03:24)
[2018-09-06] MEDS ORDERED: ONDANSETRON ODT 8 MG TAB.RAPDIS PO STA (03:24)
[2018-09-06] MEDS ORDERED: cloNIDine 0.2 MG/24HR PATCH TRANSDERM SCH (03:30)
--- NOTE | 2018-09-06 03:32 | ED ---
General Adult HPI - General Chief complaint: Recheck/Abnormal Lab/Rx Stated complaint: Nausea/Withdrawl Source: patient Mode of arrival: ambulatory Limitations: no limitations - History of Present Illness Initial comments: Patient is a 4-year-old female who presents the emergency department today with concern that she is withdrawing from opiates. Patient reports that she was prescribed methadone approximately 2 years ago for treatment of her diabetic neuropathy. Patient reports that she wants to stop taking pills all the time so 4 days ago she stopped taking her daily 10 mg methadone. Patient reports that since that day she has had some nausea, vomiting and loose stools, chills and generalized feeling of being unwell. Patient reports that she's having some low back pain but she wanted take any medications for it that she wanted to be evaluated for possible withdrawal. - Related Data Home Medications Medication Instructions Recorded Confirmed Gabapentin 300 mg PO BID 06/17/16 09/01/18 metFORMIN HCL [Glucophage] 500 mg PO BID 09/01/18 09/01/18 Previous Rx's Medication Instructions Recorded Ketorolac [Toradol] 10 mg PO TID #20 tab 09/02/18 Nitrofurantoin Monohyd/M-Cryst 100 mg PO Q12HR #14 cap 09/02/18 [Macrobid] Ondansetron Odt [Zofran Odt] 4 mg PO Q8HR PRN #8 tab 09/02/18 Sucralfate [Carafate] 1 gm PO ACHS #20 tablet 09/02/18 Baclofen 10 mg PO TID #30 tab 09/06/18 Ondansetron [Zofran ODT] 4 mg PO Q8HR #12 tab 09/06/18 Allergies Allergy/AdvReac Type Severity Reaction Status Date / Time Penicillins Allergy Severe Anaphylaxis Verified 09/06/18 02:30 metoclopramide HCl Allergy Unknown Verified 09/06/18 02:30 [From Reglan] Review of Systems ROS Statement: Those systems with pertinent positive or pertinent negative responses have been documented in the HPI. ROS Other: All systems not noted in ROS Statement are negative. Past Medical History Past Medical History: Diabetes Mellitus Additional Past Medical History / Comment(s): endometriosis, neuropathy, history of peritonitis History of Any Multi-Drug Resistant Organisms: None Reported Past Surgical History: Bowel Resection, Hysterectomy Additional Past Surgical History / Comment(s): mulitple abd surgery with adhesions Past Anesthesia/Blood Transfusion Reactions: No Reported Reaction Past Psychological History: No Psychological Hx Reported Smoking Status: Former smoker Past Alcohol Use History: None Reported Past Drug Use History: Marijuana - Past Family History Mother Family Medical History: Diabetes Mellitus Additional Family Medical History / Comment(s): grandmother had diabetes Brother(s) Family Medical History: Diabetes Mellitus General Exam - General Exam Comments Initial Comments: Physical Exam GENERAL: Patient appears uncomfortable HENT: Normocephalic, Atraumatic. EYES: PERRL, EOMI PULMONARY: Unlabored respirations. No audible rales rhonchi or wheezing was noted. CARDIOVASCULAR: There is a regular rate and rhythm without any murmurs gallops or rubs. ABDOMEN: Soft and nontender with normal bowel sounds. SKIN: Skin is clear with no lesions or rashes and otherwise unremarkable. Skin is moist : Deferred NEUROLOGIC: Patient is alert and oriented x3. Moving all extremities spontaneously MUSCULOSKELETAL: Normal extremities with adequate strength and full range of motion. No lower extremity swelling or edema. No calf tenderness. PSYCHIATRIC: Normal psychiatric evaluation. Limitations: no limitations Limitations: no limitations Course Vital Signs 09/06/18 09/06/18 09/06/18 02:27 03:30 06:00 Temperature 98.1 F 97.7 F Pulse Rate 90 64 Respiratory 18 19 18 Rate Blood Pressure 177/107 128/79 O2 Sat by Pulse 98 98 Oximetry EKG Findings - EKG Comments: EKG Findings:: EKG obtained at 4:13 AM, rate is 69, rhythm is sinus, there is normal axis, normal intervals, SC 150, QRS 76, QTC 405. There is no acute ST elevations or depressions no evidence of acute ischemia or infarction. Medical Decision Making - Medical Decision Making Patient was seen and evaluated history was obtained from patient Labs and imaging ordered Clonidine was ordered for hypertension Lidoderm was ordered for patient's back pain and she does not wish to take any by mouth medications and adamantly declines any narcotics Labs were unremarkable, EKG unremarkable at this time I'll plan to discharge the patient home with supportive care for her narcotic withdrawal. Did discuss with the patient the option for taking decreasing doses of methadone to wean off of it. However patient states that when she stopped taking it she got rid of all of her medications and she never wants to take them again. This time opiate treat the patient symptomatically for acute narcotic withdrawal. She will see her primary care physician on Friday. All questions pertaining to care were answered best my ability, return parameters were discussed the patient was discharged home in stable condition. - Lab Data Result diagrams: 09/06/18 03:50 09/06/18 03:50 Lab Results 09/06/18 09/06/18 09/06/18 Range/Units 03:50 03:50 03:50 WBC 12.4 H (3.8-10.6) k/uL RBC 4.59 (3.80-5.40) m/uL Hgb 14.6 (11.4-16.0) gm/dL Hct 42.7 (34.0-46.0) % MCV 92.9 (80.0-100.0) fL MCH 31.8 (25.0-35.0) pg MCHC 34.2 (31.0-37.0) g/dL RDW 13.9 (11.5-15.5) % Plt Count 348 (150-450) k/uL Neutrophils % 69 % Lymphocytes % 22 % Monocytes % 5 % Eosinophils % 3 % Basophils % 0 % Neutrophils # 8.5 H (1.3-7.7) k/uL Lymphocytes # 2.8 (1.0-4.8) k/uL Monocytes # 0.6 (0-1.0) k/uL Eosinophils # 0.4 (0-0.7) k/uL Basophils # 0.1 (0-0.2) k/uL Sodium 137 (137-145) mmol/L Potassium 4.7 (3.5-5.1) mmol/L Chloride 103 (98-107) mmol/L Carbon Dioxide 24 (22-30) mmol/L Anion Gap 10 mmol/L BUN 17 (7-17) mg/dL Creatinine 0.79 (0.52-1.04) mg/dL Est GFR (CKD-EPI)AfAm >90 (>60 ml/min/1.73 sqM) Est GFR (CKD-EPI)NonAf 82 (>60 ml/min/1.73 sqM) Glucose 159 H (74-99) mg/dL Calcium 10.8 H (8.4-10.2) mg/dL Total Bilirubin 0.5 (0.2-1.3) mg/dL AST 23 (14-36) U/L ALT 34 (9-52) U/L Alkaline Phosphatase 67 (38-126) U/L Troponin I <0.012 (0.000-0.034) ng/mL Total Protein 7.6 (6.3-8.2) g/dL Albumin 4.5 (3.5-5.0) g/dL Lipase 78 (23-300) U/L Urine Color Urine Appearance (Clear) Urine pH (5.0-8.0) Ur Specific [place] (1.001-1.035) Urine Protein (Negative) Urine Glucose (UA) (Negative) Urine Ketones (Negative) Urine Blood (Negative) Urine Nitrite (Negative) Urine Bilirubin (Negative) Urine Urobilinogen (<2.0) mg/dL Ur Leukocyte Esterase (Negative) Urine RBC (0-5) /hpf Urine WBC (0-5) /hpf Ur Squamous Epith Cells (0-4) /hpf 09/06/18 Range/Units 04:40 WBC (3.8-10.6) k/uL RBC (3.80-5.40) m/uL Hgb (11.4-16.0) gm/dL Hct (34.0-46.0) % MCV (80.0-100.0) fL MCH (25.0-35.0) pg MCHC (31.0-37.0) g/dL RDW (11.5-15.5) % Plt Count (150-450) k/uL Neutrophils % % Lymphocytes % % Monocytes % % Eosinophils % % Basophils % % Neutrophils # (1.3-7.7) k/uL Lymphocytes # (1.0-4.8) k/uL Monocytes # (0-1.0) k/uL Eosinophils # (0-0.7) k/uL Basophils # (0-0.2) k/uL Sodium (137-145) mmol/L Potassium (3.5-5.1) mmol/L Chloride (98-107) mmol/L Carbon Dioxide (22-30) mmol/L Anion Gap mmol/L BUN (7-17) mg/dL Creatinine (0.52-1.04) mg/dL Est GFR (CKD-EPI)AfAm (>60 ml/min/1.73 sqM) Est GFR (CKD-EPI)NonAf (>60 ml/min/1.73 sqM) Glucose (74-99) mg/dL Calcium (8.4-10.2) mg/dL Total Bilirubin (0.2-1.3) mg/dL AST (14-36) U/L ALT (9-52) U/L Alkaline Phosphatase (38-126) U/L Troponin I (0.000-0.034) ng/mL Total Protein (6.3-8.2) g/dL Albumin (3.5-5.0) g/dL Lipase (23-300) U/L Urine Color Light Yellow Urine Appearance Clear (Clear) Urine pH 5.5 (5.0-8.0) Ur Specific [place] 1.006 (1.001-1.035) Urine Protein Negative (Negative) Urine Glucose (UA) Negative (Negative) Urine Ketones Negative (Negative) Urine Blood Negative (Negative) Urine Nitrite Negative (Negative) Urine Bilirubin Negative (Negative) Urine Urobilinogen <2.0 (<2.0) mg/dL Ur Leukocyte Esterase Small H (Negative) Urine RBC 1 (0-5) /hpf Urine WBC 1 (0-5) /hpf Ur Squamous Epith Cells 1 (0-4) /hpf Disposition Clinical Impression: Methadone withdrawal Disposition: HOME SELF-CARE Condition: Stable Instructions: Opioid Withdrawal (ED) Prescriptions: Baclofen 10 mg PO TID #30 tab Ondansetron [Zofran ODT] 4 mg PO Q8HR #12 tab Is patient prescribed a controlled substance at d/c from ED?: No Referrals: Tanner Sullivan MD [Primary Care Provider] - 1-2 days
[2018-09-06 04:14] LABS: Basophils # (A) 0.1 k/uL (0-0.2); Basophils % (A) 0 %; Eosinophils # (A) 0.4 k/uL (0-0.7); Eosinophils % (A) 3 %; HCT 42.7 % (34.0-46.0); HGB 14.6 gm/dL (11.4-16.0); Lymphocytes # (A) 2.8 k/uL (1.0-4.8); Lymphocytes % (A) 22 %; MCH 31.8 pg (25.0-35.0); MCHC 34.2 g/dL (31.0-37.0); MCV 92.9 fL (80.0-100.0); Mean Platelet Volume 7.4; Monocytes # (A) 0.6 k/uL (0-1.0); Monocytes % (A) 5 %; Neutrophils # (A) 8.5 k/uL (1.3-7.7); Neutrophils % (A) 69 %; Platelet Count 348 k/uL (150-450); RBC 4.59 m/uL (3.80-5.40); RDW 13.9 % (11.5-15.5); WBC 12.4 k/uL (3.8-10.6)
[2018-09-06 04:23] LABS: ALT 34 U/L (9-52); AST 23 U/L (14-36); Albumin 4.5 g/dL (3.5-5.0); Alkaline Phosphatase 67 U/L (38-126); Anion Gap 10 mmol/L; Blood Urea Nitrogen 17 mg/dL (7-17); Calcium 10.8 mg/dL (8.4-10.2); Carbon Dioxide 24 mmol/L (22-30); Chloride 103 mmol/L (98-107); Glucose 159 mg/dL (74-99); Lipase 78 U/L (23-300); Potassium 4.7 mmol/L (3.5-5.1); Sodium 137 mmol/L (137-145); Total Bilirubin 0.5 mg/dL (0.2-1.3); Total Protein 7.6 g/dL (6.3-8.2)
--- NOTE | 2018-09-06 04:45 | XR ---
EXAMINATION TYPE: XR chest 2V DATE OF EXAM: 09/06/2018 COMPARISON: 06/10/2016 HISTORY: Abdominal pain TECHNIQUE: Frontal and lateral views of the chest are obtained. FINDINGS: Heart and mediastinum are normal. Lungs are clear. Diaphragm is normal. Bony thorax is int act. There is some spurring in the lower thoracic spine. IMPRESSION: No active cardiopulmonary disease. Normal heart. There is clearing of some minimal infil trate at the left lung base compared to old exam.
[2018-09-06] MEDS ORDERED: LIDOCAINE 5% PATCH TOPICAL STA (05:17)
[2018-09-06] MEDS ORDERED: KETOROLAC 30 MG/ML 1 ML VIAL IVP STA (05:23)
[2018-09-06] MEDS ORDERED: ORPHENADRINE 30 MG/ML 2 ML VIAL IM STA (05:23)
[2018-09-06 05:26] LABS: Appearance,Urine Clear (Clear); Bilirubin,Urine Negative (Negative); Blood,Urine Negative (Negative); Color,Urine Light Yellow; Glucose,Urine (UA) Negative (Negative); Ketones,Urine Negative (Negative); Leukocyte Esterase,Urine Small (Negative); Nitrite,Urine Negative (Negative); PH, Urine 5.5 (5.0-8.0); Protein,Urine Negative (Negative); RBC,Urine 1 /hpf (0-5); Specific Gravity,Urine 1.006 (1.001-1.035); Squamous Epithelial Cell,Urine 1 /hpf (0-4); Urobilinogen,Urine <2.0 mg/dL (<2.0); WBC,Urine 1 /hpf (0-5)
[2018-09-06 06:20] VITALS: BP 128/79; PULSE 64; RESP 18; TEMP 97.7
[2018-09-06] MEDS ORDERED: LIDOCAINE 5% PATCH TOPICAL SCH (09:00)
== END 2018-09-06 06:01 | disposition home or self-care (01) ==
LOC: EC 02:21
DX: F11.23 Opioid dependence with withdrawal (principal); E11.40 Type 2 diabetes mellitus with diabetic neuropathy, unspecified; I10 Essential (primary) hypertension; M54.9 Dorsalgia, unspecified; Z79.84 Long term (current) use of oral hypoglycemic drugs; Z79.899 Other long term (current) drug therapy; Z88.0 Allergy status to penicillin; Z88.8 Allergy status to other drugs, medicaments and biological substances; Z87.891 Personal history of nicotine dependence
CPT/HCPCS: 36415; 93005; 80053; 83690; 84484; 85025; 81001; 71046; 99284; 96374; 96361 ×2; 96372; J2360; J1885

== ENCOUNTER 2018-09-08 03:38 | Emergency (ER) | payer OTHER ==
--- NOTE | 2018-09-08 03:47 | ED ---
Nausea/Vomiting/Diarrhea HPI - General Stated complaint: Vomiting Time Seen by Provider: 09/08/18 03:46 - History of Present Illness Initial comments: Rosaura is a 58-year-old female who presents to the emergency department today for evaluation of persistent vomiting for 2 days duration. Patient was seen here 2 days ago at which time she had acutely stopped taking her methadone 10 mg 3 times a day. At that time she had been without methadone for 2-3 days and was experiencing some nausea as well as hypertension and generalized malaise. She is given clonidine and muscle relaxers and discharged home. Patient reports that after discharge she developed persistent nausea and vomiting. She's been unable to tolerate any by mouth intake. She's not been able to hold down any of her other medications including her gabapentin metformin. She did attempt to start taking her methadone again today. She attempted to take 2 doses, she bleeds she'll the first dose down but again had vomiting after second dose. - Related Data Home Medications Medication Instructions Recorded Confirmed Gabapentin 300 mg PO BID 06/17/16 09/01/18 metFORMIN HCL [Glucophage] 500 mg PO BID 09/01/18 09/01/18 Previous Rx's Medication Instructions Recorded Ketorolac [Toradol] 10 mg PO TID #20 tab 09/02/18 Nitrofurantoin Monohyd/M-Cryst 100 mg PO Q12HR #14 cap 09/02/18 [Macrobid] Ondansetron Odt [Zofran Odt] 4 mg PO Q8HR PRN #8 tab 09/02/18 Sucralfate [Carafate] 1 gm PO ACHS #20 tablet 09/02/18 Baclofen 10 mg PO TID #30 tab 09/06/18 Ondansetron [Zofran ODT] 4 mg PO Q8HR #12 tab 09/06/18 Ondansetron [Zofran ODT] 4 mg PO Q8HR #12 tab 09/08/18 Allergies Allergy/AdvReac Type Severity Reaction Status Date / Time Penicillins Allergy Severe Anaphylaxis Verified 09/08/18 03:47 metoclopramide HCl Allergy Unknown Verified 09/08/18 03:47 [From Reglan] Review of Systems ROS Statement: Those systems with pertinent positive or pertinent negative responses have been documented in the HPI. ROS Other: All systems not noted in ROS Statement are negative. Past Medical History Past Medical History: Diabetes Mellitus Additional Past Medical History / Comment(s): endometriosis, neuropathy, history of peritonitis History of Any Multi-Drug Resistant Organisms: None Reported Past Surgical History: Bowel Resection, Hysterectomy Additional Past Surgical History / Comment(s): mulitple abd surgery with adhesions Past Anesthesia/Blood Transfusion Reactions: No Reported Reaction Past Psychological History: No Psychological Hx Reported Smoking Status: Former smoker Past Alcohol Use History: None Reported Past Drug Use History: Marijuana - Past Family History Mother Family Medical History: Diabetes Mellitus Additional Family Medical History / Comment(s): grandmother had diabetes Brother(s) Family Medical History: Diabetes Mellitus General Exam - General Exam Comments Initial Comments: Physical Exam GENERAL: The patient appears uncomfortable, unwell, nauseated HENT: Normocephalic, Atraumatic. EYES: PERRL, EOMI Edentulous PULMONARY: Unlabored respirations. No audible rales rhonchi or wheezing was noted. CARDIOVASCULAR: There is a regular rate and rhythm without any murmurs gallops or rubs. ABDOMEN: Soft, normal active bowel sounds in all quadrants Tenderness to palpation left lower quadrant SKIN: Skin is clear with no lesions or rashes and otherwise unremarkable. : Deferred NEUROLOGIC: Patient is alert and oriented x3. Moving all extremities spontaneously MUSCULOSKELETAL: Normal extremities with adequate strength and full range of motion. No lower extremity swelling or edema. No calf tenderness. PSYCHIATRIC: Agitated Limitations: no limitations Course Vital Signs 09/08/18 09/08/18 09/08/18 03:43 06:00 06:52 Temperature 98.4 F 97.8 F 98 F Pulse Rate 98 84 87 Respiratory 22 16 18 Rate Blood Pressure 174/103 168/84 155/65 O2 Sat by Pulse 98 97 97 Oximetry Medical Decision Making - Medical Decision Making The patient was seen and evaluated, patient was obtained from patient and review of medical record 8 him to do obtained further history from the patient's however she advised me that the patient was seen here had a computed tomography scan and was told she had an abscess in her abdomen is soft swelling on antibiotics. Review of her chart reveals that is untrue. This was discussed with the patient who stated she was confused when she gave that information to her . Labs and imaging were ordered, IV fluids and Zofran were given Labs reveal leukocytosis as well as elevated hemoglobin rashes likely secondary to hemoconcentration and dehydration Additional IV fluids and computed tomography scan were ordered Computed tomography scan with no acute pathology Patient was reevaluated after fluids and Zofran. She reports significant improvement in her symptoms and would like to be discharged home at this time All questions pertaining care were answered best my ability return parameters were discussed the patient was discharged home with prescription for Zofran. - Lab Data Result diagrams: 09/08/18 04:00 09/08/18 04:00 Lab Results 09/08/18 09/08/18 09/08/18 Range/Units 04:00 04:00 04:00 WBC 23.3 H (3.8-10.6) k/uL RBC 5.13 (3.80-5.40) m/uL Hgb 16.3 H (11.4-16.0) gm/dL Hct 48.0 H (34.0-46.0) % MCV 93.7 (80.0-100.0) fL MCH 31.7 (25.0-35.0) pg MCHC 33.8 (31.0-37.0) g/dL RDW 14.3 (11.5-15.5) % Plt Count 371 (150-450) k/uL Neutrophils % 83 % Lymphocytes % 11 % Monocytes % 5 % Eosinophils % 0 % Basophils % 0 % Neutrophils # 19.3 H (1.3-7.7) k/uL Lymphocytes # 2.5 (1.0-4.8) k/uL Monocytes # 1.2 H (0-1.0) k/uL Eosinophils # 0.1 (0-0.7) k/uL Basophils # 0.1 (0-0.2) k/uL Sodium 140 (137-145) mmol/L Potassium 3.6 (3.5-5.1) mmol/L Chloride 103 (98-107) mmol/L Carbon Dioxide 20 L (22-30) mmol/L Anion Gap 17 mmol/L BUN 22 H (7-17) mg/dL Creatinine 0.83 (0.52-1.04) mg/dL Est GFR (CKD-EPI)AfAm 89 (>60 ml/min/1.73 sqM) Est GFR (CKD-EPI)NonAf 77 (>60 ml/min/1.73 sqM) Glucose 293 H (74-99) mg/dL Calcium 10.4 H (8.4-10.2) mg/dL Total Bilirubin 1.1 (0.2-1.3) mg/dL AST 74 H (14-36) U/L ALT 38 (9-52) U/L Alkaline Phosphatase 88 (38-126) U/L Troponin I 0.018 (0.000-0.034) ng/mL Total Protein 8.7 H (6.3-8.2) g/dL Albumin 5.1 H (3.5-5.0) g/dL Amylase 100 (30-110) U/L Lipase 42 (23-300) U/L Urine Color Urine Appearance (Clear) Urine pH (5.0-8.0) Ur Specific [place] (1.001-1.035) Urine Protein (Negative) Urine Glucose (UA) (Negative) Urine Ketones (Negative) Urine Blood (Negative) Urine Nitrite (Negative) Urine Bilirubin (Negative) Urine Urobilinogen (<2.0) mg/dL Ur Leukocyte Esterase (Negative) Urine RBC (0-5) /hpf Urine WBC (0-5) /hpf Ur Squamous Epith Cells (0-4) /hpf Hyaline Casts (0-2) /lpf Urine Mucus (None) /hpf 09/08/18 Range/Units 05:26 WBC (3.8-10.6) k/uL RBC (3.80-5.40) m/uL Hgb (11.4-16.0) gm/dL Hct (34.0-46.0) % MCV (80.0-100.0) fL MCH (25.0-35.0) pg MCHC (31.0-37.0) g/dL RDW (11.5-15.5) % Plt Count (150-450) k/uL Neutrophils % % Lymphocytes % % Monocytes % % Eosinophils % % Basophils % % Neutrophils # (1.3-7.7) k/uL Lymphocytes # (1.0-4.8) k/uL Monocytes # (0-1.0) k/uL Eosinophils # (0-0.7) k/uL Basophils # (0-0.2) k/uL Sodium (137-145) mmol/L Potassium (3.5-5.1) mmol/L Chloride (98-107) mmol/L Carbon Dioxide (22-30) mmol/L Anion Gap mmol/L BUN (7-17) mg/dL Creatinine (0.52-1.04) mg/dL Est GFR (CKD-EPI)AfAm (>60 ml/min/1.73 sqM) Est GFR (CKD-EPI)NonAf (>60 ml/min/1.73 sqM) Glucose (74-99) mg/dL Calcium (8.4-10.2) mg/dL Total Bilirubin (0.2-1.3) mg/dL AST (14-36) U/L ALT (9-52) U/L Alkaline Phosphatase (38-126) U/L Troponin I (0.000-0.034) ng/mL Total Protein (6.3-8.2) g/dL Albumin (3.5-5.0) g/dL Amylase (30-110) U/L Lipase (23-300) U/L Urine Color Yellow Urine Appearance Clear (Clear) Urine pH 6.0 (5.0-8.0) Ur Specific [place] 1.031 (1.001-1.035) Urine Protein 2+ H (Negative) Urine Glucose (UA) 4+ H (Negative) Urine Ketones 1+ H (Negative) Urine Blood Moderate H (Negative) Urine Nitrite Negative (Negative) Urine Bilirubin Negative (Negative) Urine Urobilinogen <2.0 (<2.0) mg/dL Ur Leukocyte Esterase Negative (Negative) Urine RBC 1 (0-5) /hpf Urine WBC 1 (0-5) /hpf Ur Squamous Epith Cells <1 (0-4) /hpf Hyaline Casts 8 H (0-2) /lpf Urine Mucus Rare H (None) /hpf Disposition Clinical Impression: Nausea and vomiting Disposition: HOME SELF-CARE Condition: Stable Instructions: Hypokalemia (ED), Acute Nausea and Vomiting (ED) Prescriptions: Ondansetron [Zofran ODT] 4 mg PO Q8HR #12 tab Is patient prescribed a controlled substance at d/c from ED?: No Referrals: None,Stated [REFERRING] - 1-2 days
[2018-09-08] MEDS ORDERED: PANTOPRAZOLE 40 MG/10 ML VIAL IVP STA (03:49)
[2018-09-08] MEDS ORDERED: SODIUM CHLORIDE 0.9% 1,000 ML IV STA (03:49)
[2018-09-08] MEDS ORDERED: ONDANSETRON 4 MG/2 ML VIAL IVP STA (03:49)
--- NOTE | 2018-09-08 04:21 | XR ---
EXAM: XR Abdomen, 1 View CLINICAL HISTORY: abdominal pain TECHNIQUE: Frontal upright view of the abdomen/pelvis. COMPARISON: 06/15/2016 FINDINGS: Intraperitoneal space: Stable postsurgical changes in the central and right pelvis. No pneumoperitoneum. Gastrointestinal tract: Nonspecific air-fluid levels are presumed in small bowel loops noted in the central pelvis. Nonspecific bowel gas pattern with gas predominantly in the colon. No dilation. Bones/joints: Degenerative changes of the thoracic and lumbar spine. IMPRESSION: No pneumoperitoneum. Nonspecific bowel gas pattern on this single projection exam.
[2018-09-08 04:30] LABS: Basophils # (A) 0.1 k/uL (0-0.2); Basophils % (A) 0 %; Eosinophils # (A) 0.1 k/uL (0-0.7); Eosinophils % (A) 0 %; HGB 16.3 gm/dL (11.4-16.0); Lymphocytes # (A) 2.5 k/uL (1.0-4.8); Lymphocytes % (A) 11 %; MCH 31.7 pg (25.0-35.0); MCHC 33.8 g/dL (31.0-37.0); MCV 93.7 fL (80.0-100.0); Mean Platelet Volume 7.1; Monocytes # (A) 1.2 k/uL (0-1.0); Monocytes % (A) 5 %; Neutrophils # (A) 19.3 k/uL (1.3-7.7); Neutrophils % (A) 83 %; Platelet Count 371 k/uL (150-450); RBC 5.13 m/uL (3.80-5.40); RDW 14.3 % (11.5-15.5); WBC 23.3 k/uL (3.8-10.6)
[2018-09-08 04:31] LABS: Albumin 5.1 g/dL (3.5-5.0); Calcium 10.4 mg/dL (8.4-10.2); Potassium 3.6 mmol/L (3.5-5.1); Total Bilirubin 1.1 mg/dL (0.2-1.3); Total Protein 8.7 g/dL (6.3-8.2)
[2018-09-08] MEDS ORDERED: SODIUM CHLORIDE 0.9% 1,000 ML IV ONE (04:51)
[2018-09-08 05:45] LABS: Appearance,Urine Clear (Clear); Bilirubin,Urine Negative (Negative); Blood,Urine Moderate (Negative); Color,Urine Yellow; Glucose,Urine (UA) 4+ (Negative); Hyaline Casts,Urine 8 /lpf (0-2); Ketones,Urine 1+ (Negative); Leukocyte Esterase,Urine Negative (Negative); Mucus,Urine Rare /hpf; Nitrite,Urine Negative (Negative); Protein,Urine 2+ (Negative); RBC,Urine 1 /hpf (0-5); Specific Gravity,Urine 1.031 (1.001-1.035); Squamous Epithelial Cell,Urine <1 /hpf (0-4); Urobilinogen,Urine <2.0 mg/dL (<2.0); WBC,Urine 1 /hpf (0-5)
--- NOTE | 2018-09-08 05:45 | CT ---
EXAM: CT Abdomen and Pelvis With Intravenous Contrast CLINICAL HISTORY: Pain TECHNIQUE: Axial computed tomography images of the abdomen and pelvis with intravenous contrast. CTDI is 7.5 mGy and DLP is 707.8 mGy-cm. This CT exam was performed using one or more of the following dose reduction techniques: automated exposure control, adjustment of the mA and/or kV according to patient size, and/or use of iterative reconstruction technique. COMPARISON: 09/02/2018 FINDINGS: Lung bases: Stable appearing subsegmental changes at the lung bases is presumed chronic atelectasis or scarring. ABDOMEN: Liver: Unremarkable. No mass. Gallbladder and bile ducts: Cholelithiasis is noted throughout the gallbladder. No ductal dilation. Pancreas: Unremarkable. No mass. No ductal dilation. Spleen: Unremarkable. No splenomegaly. Adrenals: Unremarkable. No mass. Kidneys and ureters: Incidental nonobstructive subcentimeter calcifications are noted involving the mid and inferior right kidney, similar to previous exam. No ureteral calcifications or hydronephrosis. Stomach and bowel: Unremarkable. No obstruction. No mucosal thickening. PELVIS: Appendix: Postsurgical changes are noted involving the cecum suggesting prior appendectomy. Bladder: Unremarkable. No mass. Reproductive: Status post hysterectomy. ABDOMEN and PELVIS: Intraperitoneal space: Unremarkable. No free air. No significant fluid collection. Bones/joints: Stable degenerative changes involving the inferior thoracic and lumbar spine. No acute fracture. No dislocation. Soft tissues: Unremarkable. Vasculature: Unremarkable. No abdominal aortic aneurysm. Lymph nodes: Nonspecific retroperitoneal periaortic lymph nodes identified, similar to previous exam. IMPRESSION: Cholelithiasis without CT evidence for pericholecystic fluid or biliary dilatation. If there is right upper quadrant tenderness/clinical concern for acute cholecystitis, right upper quadrant ultrasound may be appropriate. Incidental nonobstructive right nephrolithiasis, stable from previous exam. No evidence for bowel obstruction. No free fluid or pneumoperitoneum. Otherwise, no significant alteration from previous examination.
[2018-09-08] MEDS ORDERED: POTASSIUM CHLORIDE ER 20 MEQ TAB.ER PO STA (06:38)
[2018-09-08] MEDS ORDERED: ONDANSETRON 4 MG ODT STARTER PACK 2 TAB BTL PO STA (06:39)
[2018-09-08 06:54] VITALS: BP 155/65; PULSE 87; RESP 18; TEMP 98
== END 2018-09-08 06:58 | disposition home or self-care (01) ==
LOC: SUPCPDRO 03:38 → EC 03:38
DX: R11.2 Nausea with vomiting, unspecified (principal); D72.829 Elevated white blood cell count, unspecified; D58.2 Other hemoglobinopathies; E11.40 Type 2 diabetes mellitus with diabetic neuropathy, unspecified; Z87.891 Personal history of nicotine dependence; Z79.84 Long term (current) use of oral hypoglycemic drugs; Z79.899 Other long term (current) drug therapy; Z88.0 Allergy status to penicillin; Z88.8 Allergy status to other drugs, medicaments and biological substances
CPT/HCPCS: 36415; 80053; 82150; 83690; 84484; 85025; 81001; 74018; 74177; 99285; 96374; 96375; 96361 ×2; J2405; S0119; C9113; Q9967

== ENCOUNTER 2019-03-31 14:34 | Inpatient (IN) | payer OTHER ==
[2019-03-31 14:42] LABS: Glucose,Whole Blood 213 mg/dL (75-99)
[2019-03-31] MEDS ORDERED: PANTOPRAZOLE 40 MG/10 ML VIAL IVP STA (14:52)
[2019-03-31] MEDS ORDERED: ONDANSETRON 4 MG/2 ML VIAL IVP STA (14:52)
[2019-03-31] MEDS ORDERED: SODIUM CHLORIDE 0.9% 1,000 ML IV STA ×2 (14:52)
[2019-03-31] MEDS ORDERED: HYDROmorphone 1 MG/ML 1 ML SYRINGE IVP STA (15:21)
[2019-03-31 15:22] LABS: Basophils # (A) 0.1 k/uL (0-0.2); Basophils % (A) 0 %; Eosinophils # (A) 0.1 k/uL (0-0.7); Eosinophils % (A) 1 %; HCT 45.4 % (34.0-46.0); HGB 15.1 gm/dL (11.4-16.0); Lymphocytes # (A) 2.1 k/uL (1.0-4.8); Lymphocytes % (A) 11 %; MCHC 33.4 g/dL (31.0-37.0); MCV 92.9 fL (80.0-100.0); Mean Platelet Volume 7.8; Monocytes # (A) 0.6 k/uL (0-1.0); Monocytes % (A) 3 %; Neutrophils # (A) 15.9 k/uL (1.3-7.7); Neutrophils % (A) 84 %; Platelet Count 386 k/uL (150-450); RBC 4.88 m/uL (3.80-5.40); RDW 14.9 % (11.5-15.5); WBC 18.9 k/uL (3.8-10.6)
[2019-03-31] MEDS ORDERED: diphenhydrAMINE 50 MG/ML 1 ML VIAL IVP STA (15:22)
--- NOTE | 2019-03-31 15:22 | XR ---
EXAMINATION TYPE: XR chest 2V DATE OF EXAM: 03/31/2019 COMPARISON: 09/06/2018 HISTORY: Abdominal and chest pain TECHNIQUE: Frontal and lateral views of the chest are obtained. FINDINGS: There is no focal air space opacity, pleural effusion, or pneumothorax seen. The cardiac silhouette size is within normal limits. Pulmonary hyperinflation may relate to underlying COPD as t here is some flattening of the diaphragms on the lateral view. Mild multilevel degenerative changes o f the thoracic spine are seen. The osseous structures are intact. IMPRESSION: No acute cardiopulmonary process.
--- NOTE | 2019-03-31 15:36 | XR ---
EXAMINATION TYPE: XR KUB DATE OF EXAM: 03/31/2019 3:18 PM CLINICAL HISTORY: Nausea and vomiting for one day. Abdominal pain. TECHNIQUE: Two Upright KUB images of the abdomen are obtained. COMPARISON: Abdominal x-ray and CT abdomen/pelvis noted 09/08/2018. FINDINGS: Scattered gas is seen in non-distended stomach and small bowel loops. Gas and fecal materia l is seen in non-distended colon. Surgical clips right pelvis are present. There is dextroconvex scol iosis centered upper lumbar spine. Lung bases are clear. No pneumoperitoneum is evident. IMPRESSION: Overall nonobstructive bowel gas pattern.
[2019-03-31 15:40] LABS: ALT 15 U/L (9-52); AST 24 U/L (14-36); Albumin 4.6 g/dL (3.5-5.0); Alcohol <10 mg/dL; Alkaline Phosphatase 95 U/L (38-126); Amylase 64 U/L (30-110); Anion Gap 14 mmol/L; Blood Urea Nitrogen 20 mg/dL (7-17); Calcium 10.4 mg/dL (8.4-10.2); Carbon Dioxide 18 mmol/L (22-30); Chloride 106 mmol/L (98-107); Glucose 237 mg/dL (74-99); Lipase 52 U/L (23-300); Potassium 4.8 mmol/L (3.5-5.1); Sodium 138 mmol/L (137-145); Total Bilirubin 0.9 mg/dL (0.2-1.3); Total Protein 7.8 g/dL (6.3-8.2)
[2019-03-31 15:41] LABS: Partial Thromboplastin Time 20.4 sec (22.0-30.0); Prothrombin Time 10.5 sec (9.0-12.0)
--- NOTE | 2019-03-31 16:59 | ED ---
Nausea/Vomiting/Diarrhea HPI - General Source: patient, EMS, RN notes reviewed, old records reviewed Mode of arrival: EMS Limitations: no limitations <Marisa Augustin - Last Filed: 03/31/19 17:27> <Scooby Hernández - Last Filed: 03/31/19 18:59> - General Chief complaint: Nausea/Vomiting/Diarrhea Stated complaint: Abd Pain, Vomiting Time Seen by Provider: 03/31/19 14:41 - History of Present Illness Initial comments: Patient is a 4-year-old female arrives emergency Department via EMS with complaints of nausea and vomiting, retching for the past 24 hours. Patient states that she's had episodes like this in the past. She states that this is not related to any opiate withdrawal. Patient states that she feels generally ill. She complains of some epigastric and substernal chest pain. She denies any bloody vomiting area she did have a bowel movement today. Patient states she's had normal urination. (Marisa Augustin) - Related Data Home Medications Medication Instructions Recorded Confirmed Gabapentin 300 mg PO BID 06/17/16 03/31/19 metFORMIN HCL [Glucophage] 500 mg PO BID 09/01/18 03/31/19 Atorvastatin [Lipitor] 20 mg PO DAILY 03/31/19 03/31/19 Methadone [Dolophine] 10 mg PO Q8H 03/31/19 03/31/19 tiZANidine HCL [Zanaflex] 2 mg PO BID 03/31/19 03/31/19 Allergies Allergy/AdvReac Type Severity Reaction Status Date / Time Penicillins Allergy Severe Anaphylaxis Verified 03/31/19 16:08 metoclopramide HCl Allergy Unknown Verified 03/31/19 16:08 [facility] Review of Systems ROS Other: All systems not noted in ROS Statement are negative. <Marisa Augustin - Last Filed: 03/31/19 17:27> ROS Other: All systems not noted in ROS Statement are negative. <Scooby Hernández - Last Filed: 03/31/19 18:59> ROS Statement: Those systems with pertinent positive or pertinent negative responses have been documented in the HPI. Past Medical History Past Medical History: Diabetes Mellitus Additional Past Medical History / Comment(s): endometriosis, neuropathy, history of peritonitis History of Any Multi-Drug Resistant Organisms: None Reported Past Surgical History: Bowel Resection, Hysterectomy Additional Past Surgical History / Comment(s): mulitple abd surgery with adhesions Past Anesthesia/Blood Transfusion Reactions: No Reported Reaction Past Psychological History: No Psychological Hx Reported Smoking Status: Former smoker Past Alcohol Use History: None Reported Past Drug Use History: Marijuana - Past Family History Mother Family Medical History: Diabetes Mellitus Additional Family Medical History / Comment(s): grandmother had diabetes Brother(s) Family Medical History: Diabetes Mellitus <Marisa Augustin - Last Filed: 03/31/19 17:27> General Exam Limitations: no limitations General appearance: alert Head exam: Present: atraumatic, normocephalic, normal inspection Eye exam: Present: normal appearance, PERRL, EOMI. Absent: scleral icterus, conjunctival injection, periorbital swelling ENT exam: Present: normal exam, mucous membranes moist Neck exam: Present: normal inspection Respiratory exam: Present: normal lung sounds bilaterally. Absent: respiratory distress, wheezes, rales, rhonchi, stridor Cardiovascular Exam: Present: regular rate, normal rhythm, normal heart sounds. Absent: systolic murmur, diastolic murmur, rubs, gallop, clicks GI/Abdominal exam: Present: soft, tenderness (Sternum and epigastric tenderne ss), normal bowel sounds. Absent: distended, guarding, rebound, rigid Extremities exam: Present: normal inspection, full ROM, normal capillary refill. Absent: tenderness, pedal edema, joint swelling, calf tenderness Back exam: Present: normal inspection Neurological exam: Present: alert, oriented X3, CN II-XII intact Psychiatric exam: Present: normal affect, normal mood <Marisa Augustin - Last Filed: 03/31/19 17:27> - General Exam Comments Initial Comments: 4-year-old female. Alert and oriented. Patient appears to be retching. (Marisa Augustin) Course Vital Signs 03/31/19 03/31/19 03/31/19 14:36 17:14 18:55 Temperature 98.5 F 98.0 F Pulse Rate 59 L 78 68 Respiratory 18 16 16 Rate Blood Pressure 156/88 158/75 158/75 O2 Sat by Pulse 100 99 98 Oximetry Medical Decision Making - Lab Data Result diagrams: 03/31/19 15:05 03/31/19 15:05 <Marisa Augustin - Last Filed: 03/31/19 17:27> - Lab Data Result diagrams: 03/31/19 15:05 03/31/19 15:05 - Radiology Data Radiology results: image reviewed (Sent abdominal x-rays reveal no acute process. Computed tomography scan of the abdomen pelvis shows probable tiny gallstones, no acute abdominal or pelvic changes.) <Scooby Hernández - Last Filed: 03/31/19 18:59> - Medical Decision Making 4-year-old female presents returns today with nausea and vomiting for the last 24 hours. She recommends from her retching the EMS. Once of some substernal and epigastric abdominal pain. Tender to palpation. Patient was given IV fluids and laboratory obtained. Patient was seen approximately 6 months ago for similar complaints son had have opiate withdrawal that time. Today woke patient's white blood cell count is elevated 18,000. Due to continued retching COMPUTED tomography scan of the abdomen and pelvis was ordered. This case with Dr. Hernández at 5:27 PM will take over patient's care. (Marisa Augustin) Patient reevaluated and resting comfortably in bed. Abdomen soft and nontender. Patient updated on results and plan. Patient is comfortable with discharge. Patient states she has been told there is concern for gallstones in the past. Patient is agreeable to follow-up. (Scooby Hernández) - Lab Data Lab Results 03/31/19 03/31/19 03/31/19 Range/Units 14:40 15:05 15:05 WBC 18.9 H (3.8-10.6) k/uL RBC 4.88 (3.80-5.40) m/uL Hgb 15.1 (11.4-16.0) gm/dL Hct 45.4 (34.0-46.0) % MCV 92.9 (80.0-100.0) fL MCH 31.0 (25.0-35.0) pg MCHC 33.4 (31.0-37.0) g/dL RDW 14.9 (11.5-15.5) % Plt Count 386 (150-450) k/uL Neutrophils % 84 % Lymphocytes % 11 % Monocytes % 3 % Eosinophils % 1 % Basophils % 0 % Neutrophils # 15.9 H (1.3-7.7) k/uL Lymphocytes # 2.1 (1.0-4.8) k/uL Monocytes # 0.6 (0-1.0) k/uL Eosinophils # 0.1 (0-0.7) k/uL Basophils # 0.1 (0-0.2) k/uL PT (9.0-12.0) sec INR (<1.2) APTT (22.0-30.0) sec Sodium 138 (137-145) mmol/L Potassium 4.8 (3.5-5.1) mmol/L Chloride 106 (98-107) mmol/L Carbon Dioxide 18 L (22-30) mmol/L Anion Gap 14 mmol/L BUN 20 H (7-17) mg/dL Creatinine 0.67 (0.52-1.04) mg/dL Est GFR (CKD-EPI)AfAm >90 (>60 ml/min/1.73 sqM) Est GFR (CKD-EPI)NonAf >90 (>60 ml/min/1.73 sqM) Glucose 237 H (74-99) mg/dL POC Glucose (mg/dL) 213 H (75-99) mg/dL POC Glu [facility] Volunte[facility] ID Fariha Chahal Calcium 10.4 H (8.4-10.2) mg/dL Total Bilirubin 0.9 (0.2-1.3) mg/dL AST 24 (14-36) U/L ALT 15 (9-52) U/L Alkaline Phosphatase 95 (38-126) U/L Troponin I (0.000-0.034) ng/mL Total Protein 7.8 (6.3-8.2) g/dL Albumin 4.6 (3.5-5.0) g/dL Amylase 64 (30-110) U/L Lipase 52 (23-300) U/L Serum Alcohol <10 mg/dL 03/31/19 03/31/19 Range/Units 15:05 15:05 WBC (3.8-10.6) k/uL RBC (3.80-5.40) m/uL Hgb (11.4-16.0) gm/dL Hct (34.0-46.0) % MCV (80.0-100.0) fL MCH (25.0-35.0) pg MCHC (31.0-37.0) g/dL RDW (11.5-15.5) % Plt Count (150-450) k/uL Neutrophils % % Lymphocytes % % Monocytes % % Eosinophils % % Basophils % % Neutrophils # (1.3-7.7) k/uL Lymphocytes # (1.0-4.8) k/uL Monocytes # (0-1.0) k/uL Eosinophils # (0-0.7) k/uL Basophils # (0-0.2) k/uL PT 10.5 (9.0-12.0) sec INR 1.0 (<1.2) APTT 20.4 L (22.0-30.0) sec Sodium (137-145) mmol/L Potassium (3.5-5.1) mmol/L Chloride (98-107) mmol/L Carbon Dioxide (22-30) mmol/L Anion Gap mmol/L BUN (7-17) mg/dL Creatinine (0.52-1.04) mg/dL Est GFR (CKD-EPI)AfAm (>60 ml/min/1.73 sqM) Est GFR (CKD-EPI)NonAf (>60 ml/min/1.73 sqM) Glucose (74-99) mg/dL POC Glucose (mg/dL) (75-99) mg/dL POC Glu Hospice Volunteer ID Calcium (8.4-10.2) mg/dL Total Bilirubin (0.2-1.3) mg/dL AST (14-36) U/L ALT (9-52) U/L Alkaline Phosphatase (38-126) U/L Troponin I <0.012 (0.000-0.034) ng/mL Total Protein (6.3-8.2) g/dL Albumin (3.5-5.0) g/dL Amylase (30-110) U/L Lipase (23-300) U/L Serum Alcohol mg/dL Disposition <Marisa Augustin - Last Filed: 03/31/19 17:27> Is patient prescribed a controlled substance at d/c from ED?: No Time of Disposition: 18:59 <Scooby Hernández - Last Filed: 03/31/19 18:59> Clinical Impression: Abdominal pain, Vomiting Disposition: HOME SELF-CARE Condition: Stable Instructions (If sedation given, give patient instructions): Abdominal Pain (ED), Acute Nausea and Vomiting (ED) Additional Instructions: Please follow-up with your primary care physician in the next day or 2 for recheck. Return for uncontrolled vomiting, pain, fevers, change or worsening symptoms or other concerns. Referrals: Tanner Sullivan MD [Primary Care Provider] - 1-2 days
[2019-03-31] MEDS ORDERED: FAMOTIDINE 20 MG/2 ML VIAL IV STA (17:12)
[2019-03-31] MEDS ORDERED: LORazepam 2 MG/ML INJ IV STA (17:12)
--- NOTE | 2019-03-31 18:34 | CT ---
EXAMINATION TYPE: CT abdomen pelvis w con DATE OF EXAM: 03/31/2019 COMPARISON: 09/08/2018 HISTORY: Nausea and vomiting. CT DLP: 721 mGycm Automated exposure control for dose reduction was used. TECHNIQUE: Helical acquisition of images was performed from the lung bases through the pelvis. CONTRAST: Performed without Oral Contrast and with IV Contrast, patient injected with 100 mL of Isovue 300. FINDINGS: Lung bases are clear of consolidation. There is no pleural effusion. There are small hiatal hernia. H eart is enlarged. Liver spleen pancreas appear normal. Bile ducts are not dilated. There is low-attenuation foci in th e gallbladder probably due to multiple small gallstones. There is no adrenal mass. Kidneys show satisfactory contrast opacification. There is no hydronephrosi s. There is 2 mm calculus lower pole right kidney. There is no retroperitoneal adenopathy. Bladder di stends smoothly. There is no inguinal hernia. There is no free fluid in the pelvis. There are surgical clips in the pelvis. Appendix is not seen. T here is no sign of thickened appendix. There is no mesenteric edema. There is no ascites or free air. There is no free fluid. There is no sign of a bowel obstruction. Lumbar vertebra have normal alignment. Disc spaces are fairly normal. Bony pelvis appears intact. IMPRESSION: THERE ARE PROBABLY SMALL GALLSTONES. NO DILATED DUCTS. NO SIGN OF ACUTE ABDOMEN AND PELVIS. NO ADVERS E CHANGE COMPARED TO OLD EXAM. STABLE NONOBSTRUCTING SMALL RIGHT RENAL CALCULUS.
[2019-03-31 19:47] LABS: Glucose,Whole Blood 235 mg/dL (75-99)
[2019-03-31] MEDS ORDERED: INSULIN REGULAR 100 UNIT/ML VIAL SQ STA (19:56)
[2019-03-31 21:39] LABS: Glucose,Whole Blood 231 mg/dL (75-99)
[2019-03-31] MEDS ORDERED: hydrALAZINE HCL 20 MG/ML 1 ML VIAL IVP STA (21:48)
[2019-03-31] MEDS ORDERED: SCOPOLAMINE 1.5MG/72HR PATCH TRANSDERM STA (22:51)
[2019-03-31] MEDS ORDERED: LACTATED RINGERS 1,000 ML IV STA (22:51)
--- NOTE | 2019-03-31 22:51 | ED ---
Medical Decision Making - Medical Decision Making Patient reevaluated and starting to have recurrent nausea. Patient is not comfortable with discharge home. Family is not comfortable with discharge patient. Patient has been seen trying to self induce emesis with her fingers. Case was crusted detail with Dr. Mishra, who will admit covered for Dr. Sullivan. He does recommend changing fluids LR, adding scopolamine patch and GI consult. - Lab Data Result diagrams: 03/31/19 15:05 03/31/19 15:05 Lab Results 03/31/19 03/31/19 03/31/19 Range/Units 14:40 15:05 15:05 WBC 18.9 H (3.8-10.6) k/uL RBC 4.88 (3.80-5.40) m/uL Hgb 15.1 (11.4-16.0) gm/dL Hct 45.4 (34.0-46.0) % MCV 92.9 (80.0-100.0) fL MCH 31.0 (25.0-35.0) pg MCHC 33.4 (31.0-37.0) g/dL RDW 14.9 (11.5-15.5) % Plt Count 386 (150-450) k/uL Neutrophils % 84 % Lymphocytes % 11 % Monocytes % 3 % Eosinophils % 1 % Basophils % 0 % Neutrophils # 15.9 H (1.3-7.7) k/uL Lymphocytes # 2.1 (1.0-4.8) k/uL Monocytes # 0.6 (0-1.0) k/uL Eosinophils # 0.1 (0-0.7) k/uL Basophils # 0.1 (0-0.2) k/uL PT (9.0-12.0) sec INR (<1.2) APTT (22.0-30.0) sec Sodium 138 (137-145) mmol/L Potassium 4.8 (3.5-5.1) mmol/L Chloride 106 (98-107) mmol/L Carbon Dioxide 18 L (22-30) mmol/L Anion Gap 14 mmol/L BUN 20 H (7-17) mg/dL Creatinine 0.67 (0.52-1.04) mg/dL Est GFR (CKD-EPI)AfAm >90 (>60 ml/min/1.73 sqM) Est GFR (CKD-EPI)NonAf >90 (>60 ml/min/1.73 sqM) Glucose 237 H (74-99) mg/dL POC Glucose (mg/dL) 213 H (75-99) mg/dL POC Glu [employer] Turning Lathe Operator Fariha Sanchez Calcium 10.4 H (8.4-10.2) mg/dL Total Bilirubin 0.9 (0.2-1.3) mg/dL AST 24 (14-36) U/L ALT 15 (9-52) U/L Alkaline Phosphatase 95 (38-126) U/L Troponin I (0.000-0.034) ng/mL Total Protein 7.8 (6.3-8.2) g/dL Albumin 4.6 (3.5-5.0) g/dL Amylase 64 (30-110) U/L Lipase 52 (23-300) U/L Serum Alcohol <10 mg/dL 03/31/19 03/31/19 03/31/19 Range/Units 15:05 15:05 19:44 WBC (3.8-10.6) k/uL RBC (3.80-5.40) m/uL Hgb (11.4-16.0) gm/dL Hct (34.0-46.0) % MCV (80.0-100.0) fL MCH (25.0-35.0) pg MCHC (31.0-37.0) g/dL RDW (11.5-15.5) % Plt Count (150-450) k/uL Neutrophils % % Lymphocytes % % Monocytes % % Eosinophils % % Basophils % % Neutrophils # (1.3-7.7) k/uL Lymphocytes # (1.0-4.8) k/uL Monocytes # (0-1.0) k/uL Eosinophils # (0-0.7) k/uL Basophils # (0-0.2) k/uL PT 10.5 (9.0-12.0) sec INR 1.0 (<1.2) APTT 20.4 L (22.0-30.0) sec Sodium (137-145) mmol/L Potassium (3.5-5.1) mmol/L Chloride (98-107) mmol/L Carbon Dioxide (22-30) mmol/L Anion Gap mmol/L BUN (7-17) mg/dL Creatinine (0.52-1.04) mg/dL Est GFR (CKD-EPI)AfAm (>60 ml/min/1.73 sqM) Est GFR (CKD-EPI)NonAf (>60 ml/min/1.73 sqM) Glucose (74-99) mg/dL POC Glucose (mg/dL) 235 H (75-99) mg/dL POC Glu [employer] Turning Lathe Operator ID Honey Quintanilla Calcium (8.4-10.2) mg/dL Total Bilirubin (0.2-1.3) mg/dL AST (14-36) U/L ALT (9-52) U/L Alkaline Phosphatase (38-126) U/L Troponin I <0.012 (0.000-0.034) ng/mL Total Protein (6.3-8.2) g/dL Albumin (3.5-5.0) g/dL Amylase (30-110) U/L Lipase (23-300) U/L Serum Alcohol mg/dL 03/31/19 Range/Units 21:26 WBC (3.8-10.6) k/uL RBC (3.80-5.40) m/uL Hgb (11.4-16.0) gm/dL Hct (34.0-46.0) % MCV (80.0-100.0) fL MCH (25.0-35.0) pg MCHC (31.0-37.0) g/dL RDW (11.5-15.5) % Plt Count (150-450) k/uL Neutrophils % % Lymphocytes % % Monocytes % % Eosinophils % % Basophils % % Neutrophils # (1.3-7.7) k/uL Lymphocytes # (1.0-4.8) k/uL Monocytes # (0-1.0) k/uL Eosinophils # (0-0.7) k/uL Basophils # (0-0.2) k/uL PT (9.0-12.0) sec INR (<1.2) APTT (22.0-30.0) sec Sodium (137-145) mmol/L Potassium (3.5-5.1) mmol/L Chloride (98-107) mmol/L Carbon Dioxide (22-30) mmol/L Anion Gap mmol/L BUN (7-17) mg/dL Creatinine (0.52-1.04) mg/dL Est GFR (CKD-EPI)AfAm (>60 ml/min/1.73 sqM) Est GFR (CKD-EPI)NonAf (>60 ml/min/1.73 sqM) Glucose (74-99) mg/dL POC Glucose (mg/dL) 231 H (75-99) mg/dL POC Glu Wood Turning Lathe Operator ID Joseph Palomo Calcium (8.4-10.2) mg/dL Total Bilirubin (0.2-1.3) mg/dL AST (14-36) U/L ALT (9-52) U/L Alkaline Phosphatase (38-126) U/L Troponin I (0.000-0.034) ng/mL Total Protein (6.3-8.2) g/dL Albumin (3.5-5.0) g/dL Amylase (30-110) U/L Lipase (23-300) U/L Serum Alcohol mg/dL Disposition Clinical Impression: Abdominal pain, Vomiting, Intractable vomiting without nausea Disposition: ADMITTED IP TO THIS HOSP Condition: Stable Instructions (If sedation given, give patient instructions): Acute Nausea and Vomiting (ED), Abdominal Pain (ED) Additional Instructions: Please follow-up with your primary care physician in the next day or 2 for recheck. Return for uncontrolled vomiting, pain, fevers, change or worsening symptoms or other concerns. Is patient prescribed a controlled substance at d/c from ED?: No Referrals: Tanner Sullivan MD [Primary Care Provider] - 1-2 days
[2019-03-31] MEDS ORDERED: NALOXONE 0.4 MG/ML 1 ML VIAL IV PRN (22:52)
[2019-03-31 23:39] LABS: Appearance,Urine Clear (Clear); Bilirubin,Urine Negative (Negative); Blood,Urine Small (Negative); Color,Urine Light Yellow; Glucose,Urine (UA) 4+ (Negative); Leukocyte Esterase,Urine Negative (Negative); Nitrite,Urine Negative (Negative); PH, Urine 6.5 (5.0-8.0); Protein,Urine Negative (Negative); RBC,Urine 73 /hpf (0-5); Squamous Epithelial Cell,Urine 1 /hpf (0-4); Urobilinogen,Urine <2.0 mg/dL (<2.0); WBC,Urine 1 /hpf (0-5)
[2019-04-01 00:32] LABS: Amphetamine Screen,Urine Not Detected (NotDetected); Barbiturate Screen,Urine Not Detected (NotDetected); Benzodiazepines Screen,Urine Detected (NotDetected); Cocaine Screen,Urine Not Detected (NotDetected); Methadone Screen, Urine Detected (NotDetected); Opiate Screen,Urine Not Detected (NotDetected); Phencyclidine Screen,Urine Not Detected (NotDetected); Tricyclic Antidepressant,Urine Not Detected (NotDetected); Urn Cannabinoid Scrn Detected (NotDetected)
[2019-04-01 00:33] LABS: Oxycodone Screen, Urine Not Detected (NotDetected)
[2019-04-01 00:40] LABS: Ketones,Urine 2+ (Negative)
[2019-04-01] MEDS: HYDROmorphone 1 MG/ML 1 ML SYRINGE IVP PRN ×3 (00:45→15:00)
[2019-04-01 06:38] LABS: Glucose,Whole Blood 184 mg/dL (75-99)
[2019-04-01] MEDS: ONDANSETRON 4 MG/2 ML VIAL IVP PRN ×2 (06:56→14:57)
[2019-04-01 07:17] LABS: Basophils # (A) 0.1 k/uL (0-0.2); Basophils % (A) 0 %; Eosinophils % (A) 0 %; HCT 45.3 % (34.0-46.0); HGB 15.1 gm/dL (11.4-16.0); Lymphocytes # (A) 2.4 k/uL (1.0-4.8); Lymphocytes % (A) 12 %; MCH 30.5 pg (25.0-35.0); MCHC 33.2 g/dL (31.0-37.0); MCV 91.7 fL (80.0-100.0); Monocytes # (A) 1.2 k/uL (0-1.0); Monocytes % (A) 6 %; Neutrophils # (A) 15.6 k/uL (1.3-7.7); Neutrophils % (A) 80 %; Platelet Count 341 k/uL (150-450); RBC 4.94 m/uL (3.80-5.40); RDW 15.1 % (11.5-15.5); WBC 19.5 k/uL (3.8-10.6)
[2019-04-01 07:32] LABS: ALT 22 U/L (9-52); AST 27 U/L (14-36); Albumin 4.6 g/dL (3.5-5.0); Alkaline Phosphatase 82 U/L (38-126); Anion Gap 11 mmol/L; Blood Urea Nitrogen 16 mg/dL (7-17); Calcium 9.7 mg/dL (8.4-10.2); Carbon Dioxide 19 mmol/L (22-30); Chloride 108 mmol/L (98-107); Glucose 176 mg/dL (74-99); Magnesium 1.8 mg/dL (1.6-2.3); Sodium 138 mmol/L (137-145); Total Protein 7.7 g/dL (6.3-8.2)
[2019-04-01] MEDS: INSULIN ASPART (NovoLOG) 100 UNIT/ML VIAL SQ SCH ×4 (08:09→20:41)
[2019-04-01] MEDS: GABAPENTIN 300 MG CAP PO SCH ×2 (08:12→20:40)
[2019-04-01] MEDS: METHADONE 10 MG TAB PO SCH ×2 (08:12→15:53)
[2019-04-01] MEDS ORDERED: PANTOPRAZOLE 40 MG/10 ML VIAL IV SCH (09:00)
[2019-04-01 12:00] LABS: Glucose,Whole Blood 162 mg/dL (75-99)
--- NOTE | 2019-04-01 12:17 | P.CONS ---
History of Present Illness - Reason for Consult Consult date: 04/01/19 Nausea and abdominal pain Requesting physician: Raimundo Mishra - Chief Complaint Nausea vomiting abdominal pain - History of Present Illness 58-year-old female with a past medical history of chronic pain maintained on methadone, hysterectomy with postoperative complications peritonitis, chronic marijuana based tea drinker, and diabetes mellitus. Patient presents with int ractable nausea vomiting and occasional epigastric right upper quadrant abdominal discomfort heartburn type symptoms. Symptoms are not necessarily associated with eating meals sometimes these symptoms awaken her in the middle the night. Patient states in the last 6 months she's noted a cyclic-type pattern with these symptoms. Denies fever chills weight loss hematemesis hematochezia melena. No GI prophylaxis at home. No history of EGD. No recent travel sick contacts or changes in medications. White count 18.9- 19.5. Hemoglobin 15.1. INR 1.0. LFTs pancreatic enzymes within normal limits. Sodium 138. Potassium 4.8. BUN 20. Creatinine 0.6. No NSAIDs or alcohol or aspirin products. CT abdomen and pelvis gallstones no dilated ducts. No signs of acute abdomen pelvis. Stable nonobstructing small right renal calculus. Review of Systems Constitutional: Denies fever, chills, sweats, weight gain, or loss. HEENT: Negative for migraines, blurred vision or loss, earaches, drainage, tinnitus, oral mucosal lesions, dysphagia, or odynophagia. CARDIAC: Negative for chest pain, arrhythmias, or palpitation. RESPIRATORY: Negative for shortness of breath, hemoptysis, cough, or sputum production. GI: See HPI for pertinent findings. : Negative for hematuria, urgency, frequency, polyuria, or dysuria. GYNc: Denies possibility of . Negative vaginal discharge. MUSCULOSKELETAL: Negative for muscle aches, swelling, arthritis, and arthralgia s. NEUROLOGIC: Negative for stroke or TIA. ENDOCRINE: Negative for thyroid problems. SKIN: Negative for rash or itching. PSYCHIATRIC: Negative history for depression and anxiety Past Medical History Past Medical History: Diabetes Mellitus Additional Past Medical History / Comment(s): endometriosis, neuropathy treated by methadone, history of peritonitis History of Any Multi-Drug Resistant Organisms: None Reported Past Surgical History: Bowel Resection, Hysterectomy Additional Past Surgical History / Comment(s): mulitple abd surgery with ad hesions Past Anesthesia/Blood Transfusion Reactions: No Reported Reaction Past Psychological History: No Psychological Hx Reported Smoking Status: Former smoker Past Alcohol Use History: None Reported Past Drug Use History: Marijuana - Past Family History Mother Family Medical History: Diabetes Mellitus Additional Family Medical History / Comment(s): grandmother had diabetes Brother(s) Family Medical History: Diabetes Mellitus Medications and Allergies Home Medications Medication Instructions Recorded Confirmed Type Gabapentin 300 mg PO BID 06/17/16 03/31/19 History metFORMIN HCL [Glucophage] 500 mg PO BID 09/01/18 03/31/19 History Atorvastatin [Lipitor] 20 mg PO DAILY 03/31/19 03/31/19 History Methadone [Dolophine] 10 mg PO Q8H 03/31/19 03/31/19 History tiZANidine HCL [Zanaflex] 2 mg PO BID 03/31/19 03/31/19 History Allergies Allergy/AdvReac Type Severity Reaction Status Date / Time Penicillins Allergy Severe Anaphylaxis Verified 04/01/19 00:22 metoclopramide HCl Allergy Unknown Verified 04/01/19 00:22 [From [facility]] Physical Exam Vitals: Vital Signs Temp Pulse Pulse Resp BP BP Pulse Ox 04/01/19 08:00 98.5 F 77 18 176/92 98 04/01/19 05:05 98.9 F 85 16 160/71 97 04/01/19 00:25 18 04/01/19 00:13 99.5 F 65 18 184/69 99 03/31/19 23:44 99.9 F H 60 18 191/88 98 03/31/19 22:47 60 20 160/60 97 03/31/19 22:31 183/77 03/31/19 21:33 62 20 161/90 98 03/31/19 18:55 98.0 F 68 16 158/75 98 03/31/19 17:14 78 16 158/75 99 03/31/19 14:36 98.5 F 59 L 18 156/88 100 Intake and Output 03/31/19 04/01/19 04/01/19 22:59 06:59 14:59 Intake Total 480 Balance 480 Intake: Oral 480 Other: Voiding Method Toilet Toilet # Voids 2 General appearance: The patient is alert, oriented, in no acute distress. HET: Head is normocephalic and atraumatic. Pupils are equal and reactive. Oropharynx is clear without lesions. Neck: Supple without lymphadenopathy. Trachea midline. Heart: S1 S2. Regular rate and rhythm. Lungs: No crackles or wheezes are heard. Abdomen: Soft, minimal tenderness midepigastrium right upper quadrant, nondistended with bowel sounds. No peritoneal signs. No palpable organomegaly or masses. Extremities: Normal skin color and turgor. No cyanosis, rash, ulceration, clubbing, or edema. Radial and pedal pulses are 2/4 bilaterally. Neurological: No focal deficits. Strength and sensation are grossly intact. Results CBC & Chem 7: 04/01/19 06:34 04/01/19 06:34 Labs: Abnormal Lab Results - Last 24 Hours (Table) 03/31/19 03/31/19 03/31/19 Range/Units 14:40 15:05 15:05 WBC 18.9 H (3.8-10.6) k/uL Neutrophils # 15.9 H (1.3-7.7) k/uL Monocytes # (0-1.0) k/uL APTT (22.0-30.0) sec Chloride (98-107) mmol/L Carbon Dioxide 18 L (22-30) mmol/L BUN 20 H (7-17) mg/dL Glucose 237 H (74-99) mg/dL POC Glucose (mg/dL) 213 H (75-99) mg/dL Calcium 10.4 H (8.4-10.2) mg/dL Ur Specific [place] (1.001-1.035) Urine Glucose (UA) (Negative) Urine Ketones (Negative) Urine Blood (Negative) Urine RBC (0-5) /hpf Urine Methadone Screen (NotDetected) U Benzodiazepines Scrn (NotDetected) U Marijuana (THC) Screen (NotDetected) 03/31/19 03/31/19 03/31/19 Range/Units 15:05 19:44 21:26 WBC (3.8-10.6) k/uL Neutrophils # (1.3-7.7) k/uL Monocytes # (0-1.0) k/uL APTT 20.4 L (22.0-30.0) sec Chloride (98-107) mmol/L Carbon Dioxide (22-30) mmol/L BUN (7-17) mg/dL Glucose (74-99) mg/dL POC Glucose (mg/dL) 235 H 231 H (75-99) mg/dL Calcium (8.4-10.2) mg/dL Ur Specific [place] (1.001-1.035) Urine Glucose (UA) (Negative) Urine Ketones (Negative) Urine Blood (Negative) Urine RBC (0-5) /hpf Urine Methadone Screen (NotDetected) U Benzodiazepines Scrn (NotDetected) U Marijuana (THC) Screen (NotDetected) 03/31/19 04/01/19 04/01/19 Range/Units 23:00 06:34 06:34 WBC 19.5 H (3.8-10.6) k/uL Neutrophils # 15.6 H (1.3-7.7) k/uL Monocytes # 1.2 H (0-1.0) k/uL APTT (22.0-30.0) sec Chloride 108 H (98-107) mmol/L Carbon Dioxide 19 L (22-30) mmol/L BUN (7-17) mg/dL Glucose 176 H (74-99) mg/dL POC Glucose (mg/dL) (75-99) mg/dL Calcium (8.4-10.2) mg/dL Ur Specific [place] 1.040 H (1.001-1.035) Urine Glucose (UA) 4+ H (Negative) Urine Ketones 2+ H (Negative) Urine Blood Small H (Negative) Urine RBC 73 H (0-5) /hpf Urine Methadone Screen Detected H (NotDetected) U Benzodiazepines Scrn Detected H (NotDetected) U Marijuana (THC) Screen Detected H (NotDetected) 04/01/19 04/01/19 Range/Units 06:36 11:58 WBC (3.8-10.6) k/uL Neutrophils # (1.3-7.7) k/uL Monocytes # (0-1.0) k/uL APTT (22.0-30.0) sec Chloride (98-107) mmol/L Carbon Dioxide (22-30) mmol/L BUN (7-17) mg/dL Glucose (74-99) mg/dL POC Glucose (mg/dL) 184 H 162 H (75-99) mg/dL Calcium (8.4-10.2) mg/dL Ur Specific [place] (1.001-1.035) Urine Glucose (UA) (Negative) Urine Ketones (Negative) Urine Blood (Negative) Urine RBC (0-5) /hpf Urine Methadone Screen (NotDetected) U Benzodiazepines Scrn (NotDetected) U Marijuana (THC) Screen (NotDetected) CT scan - abdomen: report reviewed (Dr. An) Assessment and Plan (1) Abdominal pain Narrative/Plan: 58-year-old female with a history chronic pain syndrome maintained on methadone with underlying diabetes mellitus cholelithiasis presents with intractable nausea vomiting intermittent epigastric right upper quadrant abdominal pain at least [address] imaging reported no acute pathology,cholelithiasis present without biliary tree abnormalities. LFTs pancreatic enzymes within normal limits. Possible component of underlying GERD possible component of gastroparesis possible cannabinoid-induced GI symptoms. Symptomatically cholelithiasis biliary dyskinesia cannot be excluded. Current Visit: Yes Status: Acute Code(s): R10.9 - UNSPECIFIED ABDOMINAL PAIN SNOMED Code(s): 43838921 (2) Nausea & vomiting Current Visit: Yes Status: Acute Code(s): R11.2 - NAUSEA WITH VOMITING, UNSPECIFIED SNOMED Code(s): 17888553 (3) Cholelithiasis Current Visit: Yes Status: Acute Code(s): K80.20 - CALCULUS OF GALLBLADDER W/O CHOLECYSTITIS W/O OBSTRUCTION SNOMED Code(s): 227609345 (4) Diabetes mellitus Current Visit: Yes Status: Acute Code(s): E11.9 - TYPE 2 DIABETES MELLITUS WITHOUT COMPLICATIONS SNOMED Code(s): 95507212 (5) Marijuana use Current Visit: Yes Status: Acute Code(s): F12.90 - CANNABIS USE, UNSPECI FIED, UNCOMPLICATED SNOMED Code(s): 490973139 Plan: 1. Protonix 40 mg daily. Zofran as needed. EGD evaluation tomorrow with Dr. Allison. Nothing by mouth after clear liquid diet. The loop tacker has discussed the risks, benefits and alternative therapies for the above-mentioned procedure and for both sedation/analgesia as well as necessary blood product administration, if indicated, as they pertain to this patient. The patient has indicated understanding and acceptance of the risks and procedures discussed. Thank you for this kind referral and the opportunity to participate in the care of your patient. This consultation was discussed with Dr. An. The impression and plan of care have been directed as dictated.
[2019-04-01 16:11] LABS: Glucose,Whole Blood 160 mg/dL (75-99)
[2019-04-01] MEDS ORDERED: ACETAMINOPHEN TAB 325 MG TAB PO PRN (19:50)
[2019-04-01 20:17] LABS: Glucose,Whole Blood 191 mg/dL (75-99)
--- NOTE | 2019-04-01 23:23 | HP ---
HISTORY AND PHYSICAL DATE OF ADMISSION: March 31, 2019. DATE OF SERVICE: April 01, 2019 PRESENTING COMPLAINT: Nausea, vomiting. HISTORY OF PRESENTING COMPLAINT: This is a very pleasant 58-year-old patient of Dr. Sullivan. Chronic stable medical conditions include GERD, diabetes, diabetic peripheral neuropathy, chronic back pain. The patient does take methadone for peripheral neuropathy. The patient presented with episode of nausea, vomiting. He states he gets these every about 6 months they last about 2 to 3 days and goes away. On this occasion the night before patient started off with nausea and had several bouts of vomiting, whence he presented yesterday. There was no fever and chills. There was very slight abdominal pain if any. Vomiting. Did not have any blood. The patient's symptoms of GERD over a period of time have been getting worse. When I saw this patient earlier today, vomiting as well as nausea was quite improved, was pending. Waiting to see GI. The patient does smoke cigarettes and does use marijuana for her nausea. No fever. No chills. REVIEW OF SYSTEMS: CONSTITUTIONAL: None. HEENT none. RESPIRATORY: Occasional wheezing. CARDIOVASCULAR none. GASTROINTESTINAL as above. GENITOURINARY none. MUSCULOSKELETAL: Chronic low back pain. DERMATOLOGICAL, HEMATOLOGIC, LYMPHATIC: none. PSYCHIATRY none. NEUROLOGICAL: Numbness and tingling in the feet. PAST MEDICAL HISTORY: GERD, diabetes mellitus type 2, diabetic peripheral neuropathy, chronic low back pain, peritonitis. PAST SURGICAL HISTORY: Bowel resection, hysterectomy, multiple abdominal surgeries with adhesions. SOCIAL HISTORY: Smoked anywhere from half to 3/4 pack a day. No alcohol. Does some marijuana. Lives with significant other Jane. FAMILY HISTORY: Diabetes. HOME MEDICATIONS: Zanaflex 2 mg b.i.d., Glucophage 500 mg b.i.d., methadone 10 mg q.8, Neurontin 300 mg b.i.d., Lipitor 20 mg p.o. daily. ALLERGIES: PENICILLIN AND REGLAN. PHYSICAL EXAMINATION: VITAL SIGNS: Vital signs on presentation: Temp 98.5, pulse 78, respirations 16, blood pressure 115/75, pulse ox 99 percent on room air. GENERAL APPEARANCE: Average built, sitting up, a bit tired-appearing. EYES: Pupils equal. Conjunctivae normal. HEENT: External appearance of nose and ears normal. Oral cavity normal. NECK: JVD not raised. Mass not palpable. RESPIRATORY: Effort normal. LUNGS: Slightly decreased breath sounds. CARDIOVASCULAR: 1st and 2nd sounds normal. No edema. ABDOMEN: Soft, nontender. Liver and spleen not palpable. LYMPHATICS: No lymph nodes palpable in the neck and axilla. PSYCHIATRY: Alert and oriented x3. Mood and affect normal. NEUROLOGICAL: Pupils equal. Cranial nerves grossly intact. Power and sensation grossly intact. INVESTIGATIONS: White count 9.5, hemoglobin 15.1. Potassium 4, BUN 16, creatinine 0.53. Accu-Cheks 184. Urine drug screen positive for methadone, benzodiazepine, marijuana. CT scan of the abdomen and pelvis low-attenuation foci in the gallbladder, possibly due to multiple small gallstones. 2 mm calculus in the lower pole of right kidney. Chest x- ray film, personally reviewed by me shows evidence of osteoarthritis in the vertebral column, hyperinflation. ASSESSMENT: 1. Patient gets bouts of nausea vomiting every few months then settles down on its own. It may be noted that the patient has significant gastroesophageal reflux disease symptoms and this could be cause of her symptoms though expect it to be more progressive. 2. Worsening gastroesophageal reflux disease over a period of time. It may be noted that the patient is a smoker. 3. Diabetes mellitus type 2 on oral hypoglycemics. 4. Diabetic peripheral neuropathy. 5. Chronic low back pain from arthritis. 6. Methadone use for diabetic peripheral neuropathy. 7. Chronic nicotine dependence. Patient is a cigarette smoker. 8. Emphysema in a current smoker. 9. Multiple gallstones may need a surgical opinion down the road. PLAN: Patient's home medications are resumed. Patient was given a scopolamine patch. Gastroenterology was consulted. The patient may need EGD. Proton pump inhibitor was added. The patient does take Glucophage empty stomach and that definitely can cause nausea and diarrhea. The patient was told to get an EGD done and Gastroenterology was consulted. Smoking cessation counseling: This was done at length with the patient's partner and several aspects were discussed. The patient will be given a nicotine patch. More than 3 minutes was spent on this aspect of the case. At this point, there is no abdominal tenderness and is not felt to be causative at this time. Copy to Dr. Sullivan. MMAAYUSH / LISA: [id number] /
[2019-04-02] MEDS: METHADONE 10 MG TAB PO SCH ×3 (00:52→16:53)
[2019-04-02] MEDS: HYDROmorphone 1 MG/ML 1 ML SYRINGE IVP PRN ×2 (03:19→14:40)
[2019-04-02 06:44] LABS: Glucose,Whole Blood 151 mg/dL (75-99)
[2019-04-02] MEDS: ONDANSETRON 4 MG/2 ML VIAL IVP PRN (06:47)
[2019-04-02] MEDS ORDERED: PANTOPRAZOLE 40 MG TABLET PO SCH (09:00)
[2019-04-02] MEDS: INSULIN ASPART (NovoLOG) 100 UNIT/ML VIAL SQ SCH ×2 (09:14→12:19)
[2019-04-02] MEDS: GABAPENTIN 300 MG CAP PO SCH (09:14)
[2019-04-02 09:34] LABS: Basophils # (A) 0.1 k/uL (0-0.2); Basophils % (A) 1 %; Eosinophils # (A) 0.1 k/uL (0-0.7); Eosinophils % (A) 1 %; HCT 47.3 % (34.0-46.0); HGB 15.4 gm/dL (11.4-16.0); Lymphocytes # (A) 3.3 k/uL (1.0-4.8); Lymphocytes % (A) 27 %; MCH 30.4 pg (25.0-35.0); MCHC 32.5 g/dL (31.0-37.0); MCV 93.5 fL (80.0-100.0); Mean Platelet Volume 7.8; Monocytes # (A) 0.9 k/uL (0-1.0); Monocytes % (A) 7 %; Neutrophils # (A) 7.6 k/uL (1.3-7.7); Neutrophils % (A) 63 %; Platelet Count 316 k/uL (150-450); RBC 5.06 m/uL (3.80-5.40); RDW 14.6 % (11.5-15.5); WBC 12.1 k/uL (3.8-10.6)
[2019-04-02 11:45] LABS: Glucose,Whole Blood 141 mg/dL (75-99)
[2019-04-02] MEDS ORDERED: LIDOCAINE 1% INJ 10MG/ML (20 ML MDV) ONE (15:02)
[2019-04-02] MEDS ORDERED: PROPOFOL 10 MG/ML 20 ML VIAL IV ONE (15:02)
[2019-04-02] MEDS ORDERED: IV FLUID CONTINUATION 1,000 ML IV ONE ×2 (15:12)
--- NOTE | 2019-04-02 15:34 | P.PCN ---
Date of Procedure: 04/02/19 Procedure(s) Performed: Procedure: Esophagogastroduodenoscopy and biopsy. Preoperative diagnosis: Intractable nausea and vomiting. Postoperative diagnosis: 1. Small sliding hiatal hernia with no obvious esophagitis or complicated reflux disease. 2. Gastritis and duodenitis but no ulcers ulcers or gastric outlet obstruction. 3. Multiple biopsies obtained from the duodenum, antrum and esophagus. Preparation and sedation: Was provided by anesthesia. Brief clinical history: The patient is a 58-year-old female with a past medical history of chronic pain maintained on methadone, hysterectomy with postoperative complications whic included peritonitis, chronic marijuana based tea drinker, and diabetes mellitus. Patient presents with intractable nausea and vomiting and occasional epigastric right upper quadrant abdominal discomfort and heartburn type symptoms. Symptoms are not necessarily associated with eating meals sometimes these symptoms awaken her in the middle the night. The patient had a similar episode 6 months ago that lasted a day or 2. Denies, fever, chills, weight loss, hematemesis, hematochezia or melena. No GI prophylaxis at home. No history of EGD. No recent travel, sick contacts or changes in medications. White count 18.9-19.5. Hemoglobin 15.1. INR 1.0. LFTs and panc reatic enzymes within normal limits. Sodium 138. Potassium 4.8. BUN 20. Creatinine 0.6. No NSAIDs or alcohol or aspirin products. CT abdomen and pelvis gallstones no dilated ducts. No signs of acute abdomen pelvis. Stable nonobstructing small right renal calculus. Other details are summarized in the history and physical and dictated consultation and progress notes. This evaluation is to assess for peptic ulcer disease, gastric outlet obstruction or other pathology. Procedure: With the patient on her left lateral decubitus position and after informed consent and adequate sedation, I passed the Olympus-GIF H190 video upper endoscope through the cricopharyngeus down the esophagus. GE junction was around 40 cm from the incisors and there was a small sliding hiatal hernia but no obvious esophagitis or complicated reflux disease. The endoscope was then passed into the stomach which was insufflated with air and inspected in detail including the retroflex view in the cardia. There was mottling, erythema and minimal friability in the antrum and prepyloric area but no ulcers or bleeding. Pyloric channel did not show any ulcers. Duodenal bulb, post bulbar area and descending duodenum showed erythema, friability and occasional fainting erosion but no ulcers or bleeding. I obtained biopsies from the duodenum, antrum and esophagus then the endoscope was withdrawn. The patient tolerated the procedure well. Plan: The patient was reassured. Will allow clear liquid diet for the next meal then advance to regular diet as tolerated. Further plans will be made based on her course and biopsy results. We will continue acid suppressive therapy and symptomatic treatment for vomiting and nausea.
[2019-04-02 15:50] VITALS: BP 113/71; PULSE 62; RESP 17; TEMP 98.3
[2019-04-02 16:36] LABS: Glucose,Whole Blood 141 mg/dL (75-99)
== END 2019-04-02 17:58 | disposition home or self-care (01) | DRG 392 ==
LOC: EC 14:34 → 1SOBS 22:52 → OBSVTOIN 04-02 14:31
PROVIDERS: ADMIT Hospitalist; ATTEND Hospitalist
PROC: 0DB78ZX Excision of Stomach, Pylorus, Via Natural or Artificial Opening Endoscopic, Diagnostic (ICD-10-PCS; 2019-04-02)
PROC: 0DB58ZX Excision of Esophagus, Via Natural or Artificial Opening Endoscopic, Diagnostic (ICD-10-PCS; 2019-04-02)
PROC: 0DB98ZX Excision of Duodenum, Via Natural or Artificial Opening Endoscopic, Diagnostic (ICD-10-PCS; principal; 2019-04-02 13:50)
DX: K21.9 Gastro-esophageal reflux disease without esophagitis (principal); K29.70 Gastritis, unspecified, without bleeding; K29.80 Duodenitis without bleeding; K44.9 Diaphragmatic hernia without obstruction or gangrene; K80.20 Calculus of gallbladder without cholecystitis without obstruction; K82.8 Other specified diseases of gallbladder; J43.9 Emphysema, unspecified; N20.0 Calculus of kidney; E11.42 Type 2 diabetes mellitus with diabetic polyneuropathy; F11.90 Opioid use, unspecified, uncomplicated; Z79.84 Long term (current) use of oral hypoglycemic drugs; Z79.899 Other long term (current) drug therapy; F17.210 Nicotine dependence, cigarettes, uncomplicated; G89.4 Chronic pain syndrome; M46.90 Unspecified inflammatory spondylopathy, site unspecified; Z83.3 Family history of diabetes mellitus; Z90.710 Acquired absence of both cervix and uterus; Z90.49 Acquired absence of other specified parts of digestive tract; Z88.0 Allergy status to penicillin; Z88.8 Allergy status to other drugs, medicaments and biological substances
CPT/HCPCS: 36415; 43239; 71046; 74018; 74177; 80053; 80306; 80320; 81001; 82150; 83690; 83735; 84484; 85025; 85610; 85730; 96361; 96374; 96375; 99285

== ENCOUNTER 2019-05-31 21:41 | Inpatient (IN) | payer OTHER ==
--- NOTE | 2019-05-31 21:57 | ED ---
General Adult HPI - General Stated complaint: Poss Stroke and Stemi - History of Present Illness Initial comments: Dictation was produced using [employer] dictation software. please excuse any grammatical, word or spelling errors. Chief Complaint: 59-year-old female past medical history of diabetes and chronic pain presents with strokelike symptoms. History of Present Illness: Patient 59-year-old female she is brought in by EMS. Approximate 45 minutes prior to arrival she was found to have strokelike symptoms. Patient had complete left-sided paralysis left facial droop and dysarthria. EMS was: Patient is brought to the emergency department. Patient's significant other is at bedside states that patient went out to water the grass however she did not come back. Her significant other went outside to check on her she was found to be on the ground. Patient has no stroke history or neurologic history. Patient unable to provide HPI at this time. According to significant other she was in her usual state of health earlier today. The ROS documented in this emergency department record has been reviewed and confirmed by me. Those systems with pertinent positive or negative responses have been documented in the HPI. All other systems are other negative and/or noncontributory. PHYSICAL EXAM: General Impression: Lethargic, minimally responsive, does not follow commands HEENT: Normocephalic atraumatict, pupils equal and reactive Cardiovascular: Heart regular rate and rhythm, S1&S2 audible, no murmurs, rubs or gallops Chest: Bilateral breath sounds Abdomen: Nondistended, soft Musculoskeletal: Pulses present and equal in all extremities, no peripheral edema Neurological: Unresponsive, does not follow commands, eyes open, flaccid paralysis of left upper and left lower extremity, no sensation to painful stimuli of the left extremities, gaze deficit to the right ED course: 59-year-old female presents with strokelike symptoms. onset of symptoms was 45 minutes prior to arrival. NIH is very high measuring 30 for left-sided paralysis, or sensory deficit, dysarthria, facial droop, and dense aphasia. code stroke was paged. Patient went to CT. She had multiple episodes of vomiting while in CT and given antiemetics. Patient was reevaluated in resuscitation bay. She had pinpoint pupils and has history of methadone use. She was given Narcan. There was dramatic improvement of neurologic symptoms. She is now following commands and moving the left side. She still however has some mild drift however has good tone and motor function to the left extremities. Patient would kick with her left leg and pulled her left upper extremity . CT results showed subtle loss of powell-white differentiation within the right MCA distribution which may represent early infarct. No findings of acute hemorrhage. Thoracic aorta CT was obtained showing no evidence of dissection. CT angios the head and neck was obtained showing occlusion noted at the right MCA bifurcation With no significant contrast beyond a occlusion. Discussed these findings with patient's spouse. Discussed patient case with Dr. Sinclair who says patient is not a candidate for thrombolysis or endovascular procedure given rapidly improving of symptoms despite CT imaging findings. Patient was showing severe withdrawal symptoms after being administered Narcan. She was given benzodiazepines. She is resting comfortably at bedside. Repeat neuro examination was performed showing persistent left extremity deficit. Patient was given rectal aspirin. EKG interpretation: Ventricular rate 75, normal sinus rhythm,. Interval 150, care 78, QTC 410. No TX prolongation, no QTC prolongation, no ST or T-wave changes noted. No old EKG for comparison. Overall, this EKG is unremarkable. Repeat EKG was performed showing no dynamic changes. - Related Data Home Medications Medication Instructions Recorded Confirmed Gabapentin [Neurontin] 300 mg PO BID PRN 05/31/19 05/31/19 Methadone [Dolophine] 10 mg PO Q8H PRN 05/31/19 05/31/19 Omeprazole 20 mg PO DAILY 05/31/19 05/31/19 metFORMIN HCL [Glucophage] 500 mg PO BID 05/31/19 05/31/19 Allergies Allergy/AdvReac Type Severity Reaction Status Date / Time metoclopramide [From Reglan] Allergy Itching Verified 05/31/19 23:05 Penicillins Allergy Anaphylaxis Verified 05/31/19 23:05 Review of Systems ROS Statement: Those systems with pertinent positive or pertinent negative responses have been documented in the HPI. ROS Other: All systems not noted in ROS Statement are negative. Course Vital Signs 05/31/19 05/31/19 05/31/19 21:45 21:50 22:04 Temperature 97.6 F Pulse Rate 77 72 77 Respiratory 22 16 16 Rate Blood Pressure 154/94 134/78 151/83 O2 Sat by Pulse 96 96 96 Oximetry 05/31/19 05/31/19 05/31/19 22:16 22:25 22:30 Temperature Pulse Rate 79 77 Respiratory 16 16 24 Rate Blood Pressure 157/83 166/117 O2 Sat by Pulse 96 96 Oximetry 05/31/19 05/31/19 05/31/19 22:40 22:45 22:50 Temperature Pulse Rate 110 H 112 H 99 Respiratory 20 20 24 Rate Blood Pressure 222/156 100/72 171/85 O2 Sat by Pulse 98 98 98 Oximetry 05/31/19 05/31/19 05/31/19 22:57 23:00 23:15 Temperature Pulse Rate 117 H 108 H 101 H Respiratory 20 20 24 Rate Blood Pressure 171/85 173/89 160/90 O2 Sat by Pulse 98 98 98 Oximetry 05/31/19 06/01/19 23:30 00:00 Temperature Pulse Rate 98 94 Respiratory 23 22 Rate Blood Pressure 158/93 157/78 O2 Sat by Pulse 98 98 Oximetry Medical Decision Making - Lab Data Result diagrams: 05/31/19 22:30 05/31/19 22:30 Lab Results 05/31/19 05/31/19 05/31/19 Range/Units 22:28 22:30 22:30 WBC 20.4 H (3.8-10.6) k/uL RBC 5.15 (3.80-5.40) m/uL Hgb 16.6 H (11.4-16.0) gm/dL Hct 48.3 H (34.0-46.0) % MCV 93.8 (80.0-100.0) fL MCH 32.2 (25.0-35.0) pg MCHC 34.3 (31.0-37.0) g/dL RDW 13.5 (11.5-15.5) % Plt Count 346 (150-450) k/uL Neutrophils % (Manual) 54 % Lymphocytes % (Manual) 41 % Monocytes % (Manual) 4 % Eosinophils % (Manual) 1 % Neutrophils # (Manual) 11.02 H (1.3-7.7) k/uL Lymphocytes # (Manual) 8.36 H (1.0-4.8) k/uL Monocytes # (Manual) 0.82 (0-1.0) k/uL Eosinophils # (Manual) 0.20 (0-0.7) k/uL Nucleated RBCs 0 (0-0) /100 WBC Manual Slide Review Performed PT (9.0-12.0) sec INR (<1.2) APTT (22.0-30.0) sec Sodium 140 (137-145) mmol/L Potassium 4.6 (3.5-5.1) mmol/L Chloride 101 (98-107) mmol/L Carbon Dioxide 22 (22-30) mmol/L Anion Gap 17 mmol/L BUN 23 H (7-17) mg/dL Creatinine 1.72 H (0.52-1.04) mg/dL Est GFR (CKD-EPI)AfAm 37 (>60 ml/min/1.73 sqM) Est GFR (CKD-EPI)NonAf 32 (>60 ml/min/1.73 sqM) Glucose 152 H (74-99) mg/dL POC Glucose (mg/dL) 188 H (75-99) mg/dL POC Glu [employer] ID Calcium 10.6 H (8.4-10.2) mg/dL Total Bilirubin 0.8 (0.2-1.3) mg/dL AST 31 (14-36) U/L ALT 8 L (9-52) U/L Alkaline Phosphatase 87 (38-126) U/L Troponin I (0.000-0.034) ng/mL Total Protein 9.1 H (6.3-8.2) g/dL Albumin 5.2 H (3.5-5.0) g/dL 05/31/19 05/31/19 Range/Units 22:30 22:30 WBC (3.8-10.6) k/uL RBC (3.80-5.40) m/uL Hgb (11.4-16.0) gm/dL Hct (34.0-46.0) % MCV (80.0-100.0) fL MCH (25.0-35.0) pg MCHC (31.0-37.0) g/dL RDW (11.5-15.5) % Plt Count (150-450) k/uL Neutrophils % (Manual) % Lymphocytes % (Manual) % Monocytes % (Manual) % Eosinophils % (Manual) % Neutrophils # (Manual) (1.3-7.7) k/uL Lymphocytes # (Manual) (1.0-4.8) k/uL Monocytes # (Manual) (0-1.0) k/uL Eosinophils # (Manual) (0-0.7) k/uL Nucleated RBCs (0-0) /100 WBC Manual Slide Review PT 10.0 (9.0-12.0) sec INR 0.9 (<1.2) APTT 20.2 L (22.0-30.0) sec Sodium (137-145) mmol/L Potassium (3.5-5.1) mmol/L Chloride (98-107) mmol/L Carbon Dioxide (22-30) mmol/L Anion Gap mmol/L BUN (7-17) mg/dL Creatinine (0.52-1.04) mg/dL Est GFR (CKD-EPI)AfAm (>60 ml/min/1.73 sqM) Est GFR (CKD-EPI)NonAf (>60 ml/min/1.73 sqM) Glucose (74-99) mg/dL POC Glucose (mg/dL) (75-99) mg/dL POC Glu [employer] ID Calcium (8.4-10.2) mg/dL Total Bilirubin (0.2-1.3) mg/dL AST (14-36) U/L ALT (9-52) U/L Alkaline Phosphatase (38-126) U/L Troponin I 0.014 (0.000-0.034) ng/mL Total Protein (6.3-8.2) g/dL Albumin (3.5-5.0) g/dL Critical Care Time Critical Care Time: Yes Total Critical Care Time: 31 Disposition Clinical Impression: Cerebrovascular accident Disposition: ADMITTED IP TO THIS [facility] Condition: Fair Referrals: None,Stated [REFERRING] - 1-2 days Decision Time: 00:54
[2019-05-31 22:31] LABS: Glucose,Whole Blood 188 mg/dL (75-99)
--- NOTE | 2019-05-31 22:48 | CT ---
EXAM: CT Angiography Chest With Intravenous Contrast CLINICAL HISTORY: Pain TECHNIQUE: Axial computed tomographic angiography images of the chest with intravenous contrast using pulmonary embolism protocol. CTDI is 0.142, 0. 142, 9.4, 4, 36, 8.5 mGy and DLP is 1345.8 mGy-cm. This CT exam was performed using one or more of the following dose reduction techniques: automated exposure control, adjustment of the mA and/or kV according to patient size, and/or use of iterative reconstruction technique. MIP reconstructed images were created and reviewed. COMPARISON: No relevant prior studies available. FINDINGS: Pulmonary arteries: Unremarkable. No pulmonary embolism. Aorta: No acute findings. No thoracic aortic aneurysm. Lungs: Scattered areas of atelectasis and or scarring. No mass. Pleural space: Unremarkable. No significant effusion. No pneumothorax. Heart: Unremarkable. No cardiomegaly. No significant pericardial effusion. No evidence of RV dysfunction. Bones/joints: No acute fracture. No dislocation. Soft tissues: Unremarkable. Lymph nodes: Unremarkable. No enlarged lymph nodes. IMPRESSION: No acute findings. EXAM: CT Angiography Abdomen and Pelvis With Intravenous Contrast CLINICAL HISTORY: Pain TECHNIQUE: Axial computed tomographic angiography images of the abdomen and pelvis with intravenous contrast. CTDI is 0.142, 0.142, 9.4, 4, 36, 8.5 mGy and DLP is 1345.8 mGy-cm. This CT exam was performed using one or more of the following dose reduction techniques: automated exposure control, adjustment of the mA and/or kV according to patient size, and/or use of iterative reconstruction technique. MIP reconstructed images were created and reviewed. COMPARISON: No relevant prior studies available. FINDINGS: VASCULATURE: Aorta: Calcific atherosclerotic disease of the thoracic aorta. No dissection or aneurysm. Celiac trunk and mesenteric arteries: No acute findings. No occlusion or significant stenosis. Renal arteries: No acute findings. No occlusion or significant stenosis. Iliac arteries: No acute findings. No occlusion or significant stenosis. Lung bases: Unremarkable. No mass. No consolidation. ABDOMEN: Liver: Decreased attenuation liver which may be phase of IV contrast versus hepatic steatosis. Gallbladder and bile ducts: Gallstones. No CT evidence of acute cholecystitis. No ductal dilation. Pancreas: Unremarkable. No ductal dilation. No mass. Spleen: Unremarkable. No splenomegaly. Adrenals: Left adrenal gland nodule which is incompletely characterized. This measures up to 16 mm. Kidneys and ureters: Unremarkable. No hydronephrosis. No solid mass. Stomach and bowel: Unremarkable. No obstruction. No mucosal thickening. PELVIS: Appendix: Appendix is not visualized. Bladder: Unremarkable. No mass. Reproductive: Uterus is surgically absent. ABDOMEN and PELVIS: Intraperitoneal space: Unremarkable. No significant fluid collection. No free air. Bones/joints: No acute fracture. No dislocation. Soft tissues: Unremarkable. Lymph nodes: Unremarkable. No enlarged lymph nodes. IMPRESSION: Gallstones. No CT evidence of acute cholecystitis.
--- NOTE | 2019-05-31 22:51 | CT ---
EXAM: CT Head Without Intravenous Contrast CLINICAL HISTORY: Neuro deficits TECHNIQUE: Axial computed tomography images of the head/brain without intravenous contrast. CTDI is 65.71 mGy and DLP is 1306.1 mGy-cm. This CT exam was performed using one or more of the following dose reduction techniques: automated exposure control, adjustment of the mA and/or kV according to patient size, and/or use of iterative reconstruction technique. COMPARISON: No relevant prior studies available. FINDINGS: Brain: Question subtle loss of the powell-white differentiation within the right MCA distribution which may represent early infarct. No hemorrhage. Ventricles: Unremarkable. No ventriculomegaly. Bones/joints: Unremarkable. No acute fracture. Soft tissues: Unremarkable. Sinuses: Unremarkable as visualized. No acute sinusitis. Mastoid air cells: Unremarkable as visualized. No mastoid effusion. Other findings: No acute hemorrhage. IMPRESSION: 1. Question subtle loss of the powell-white differentiation within the right MCA distribution which may represent early infarct. 2. No acute hemorrhage. EXAM: CT Cervical Spine Without Intravenous Contrast CLINICAL HISTORY: Neuro deficits TECHNIQUE: Axial computed tomography images of the cervical spine without intravenous contrast. CTDI is 65.71 mGy and DLP is 1306.1 mGy-cm. This CT exam was performed using one or more of the following dose reduction techniques: automated exposure control, adjustment of the mA and/or kV according to patient size, and/or use of iterative reconstruction technique. COMPARISON: No relevant prior studies available. FINDINGS: Vertebrae: No acute fracture or traumatic malalignment. Discs/spinal canal/neural foramina: No acute findings. No spinal canal stenosis. Soft tissues: Unremarkable. IMPRESSION: No acute findings. <MYCVCSECTION> Critical Value Communications 05/31/19 22:52 Call Doctor Regarding Above results, called Dr. Jin on 05/31 22:52 (-04:00)
[2019-05-31 22:55] LABS: HCT 48.3 % (34.0-46.0); HGB 16.6 gm/dL (11.4-16.0); MCH 32.2 pg (25.0-35.0); MCHC 34.3 g/dL (31.0-37.0); MCV 93.8 fL (80.0-100.0); Mean Platelet Volume 8.7; Platelet Count 346 k/uL (150-450); RBC 5.15 m/uL (3.80-5.40); RDW 13.5 % (11.5-15.5); WBC 20.4 k/uL (3.8-10.6)
[2019-05-31] MEDS ORDERED: LORazepam 2 MG/ML INJ IV STA ×3 (22:55→23:04)
[2019-05-31] MEDS ORDERED: ONDANSETRON 4 MG/2 ML VIAL IVP STA ×2 (22:59→23:04)
[2019-05-31] MEDS ORDERED: NALOXONE 0.4 MG/ML 1 ML VIAL IV STA (23:04)
--- NOTE | 2019-05-31 23:04 | CT ---
EXAM: CT Angiography Head With Intravenous Contrast CLINICAL HISTORY: Neuro deficits TECHNIQUE: Axial computed tomographic angiography images of the head with intravenous contrast using CT angiography protocol. CTDI is 0.142, 0.142, 9.4, 4, 36, 8.5 mGy and DLP is 1345.8 mGy-cm. This CT exam was performed using one or more of the following dose reduction techniques: automated exposure control, adjustment of the mA and/or kV according to patient size, and/or use of iterative reconstruction technique. MIP reconstructed images were created and reviewed. COMPARISON: No relevant prior studies available. FINDINGS: HEAD: Right anterior cerebral artery: Unremarkable. No occlusion or significant stenosis. No aneurysm. Right middle cerebral artery: Occlusion is noted at the right MCA bifurcation. No significant contrast seen beyond the occlusion. No aneurysm. Right posterior cerebral artery: Unremarkable. No occlusion or significant stenosis. No aneurysm. Left anterior cerebral artery: Unremarkable. No occlusion or significant stenosis. No aneurysm. Left middle cerebral artery: Unremarkable. No occlusion or significant stenosis. No aneurysm. Left posterior cerebral artery: Unremarkable. No occlusion or significant stenosis. No aneurysm. Basilar artery: Unremarkable. No occlusion or significant stenosis. No aneurysm. Right internal carotid artery: Unremarkable. No significant stenosis. No dissection or occlusion. Right vertebral artery: Unremarkable. No significant stenosis. No dissection or occlusion. Left internal carotid artery: Unremarkable. No significant stenosis. No dissection or occlusion. Left vertebral artery: Unremarkable. No significant stenosis. No dissection or occlusion. CAROTID STENOSIS REFERENCE USING NASCET CRITERIA: % ICA stenosis = (1 - narrowest ICA diameter/diameter of distal cervical ICA) x 100. Mild - <50% stenosis. Moderate - 50-69% stenosis. Severe - 70-94% stenosis. Near occlusion - 95-99% stenosis. Occluded - 100% stenosis. IMPRESSION: Occlusion is noted at the right MCA bifurcation. No significant contrast seen beyond the occlusion. EXAM: CT Angiography Neck With Intravenous Contrast CLINICAL HISTORY: Neuro deficits TECHNIQUE: Axial computed tomographic angiography images of the neck with intravenous contrast using CT angiography protocol. CTDI is 0.142, 0.142, 9.4, 4, 36, 8.5 mGy and DLP is 1345.8 mGy-cm. This CT exam was performed using one or more of the following dose reduction techniques: automated exposure control, adjustment of the mA and/or kV according to patient size, and/or use of iterative reconstruction technique. MIP reconstructed images were created and reviewed. COMPARISON: No relevant prior studies available. FINDINGS: VASCULATURE: Right common carotid artery: Unremarkable. No significant stenosis. No dissection or occlusion. Right internal carotid artery: Small amount of soft plaque noted at the bifurcation of the right carotid and subclavian artery. Small amount of calcific atherosclerotic disease of the proximal right ICA without significant stenosis. No dissection or occlusion. Right external carotid artery: Unremarkable. No occlusion. Right vertebral artery: Unremarkable. No significant stenosis. No dissection or occlusion. Left common carotid artery: Unremarkable. No significant stenosis. No dissection or occlusion. Left internal carotid artery: Mild stenosis of the proximal left ICA secondary to noncalcific atheromatous disease. No dissection or occlusion. Left external carotid artery: Unremarkable. No occlusion. Left vertebral artery: Unremarkable. No significant stenosis. No dissection or occlusion. CAROTID STENOSIS REFERENCE USING NASCET CRITERIA: % ICA stenosis = (1 - narrowest ICA diameter/diameter of distal cervical ICA) x 100. Mild - <50% stenosis. Moderate - 50-69% stenosis. Severe - 70-94% stenosis. Near occlusion - 95-99% stenosis. Occluded - 100% stenosis. IMPRESSION: 1. Mild stenosis of the proximal left ICA secondary to noncalcific atheromatous disease. 2. Small amount of soft plaque noted at the bifurcation of the right carotid and subclavian artery.
[2019-05-31] MEDS ORDERED: NALOXONE 0.4 MG/ML 10 ML VIAL IVP STA (23:05)
[2019-05-31 23:08] LABS: Albumin 5.2 g/dL (3.5-5.0); Calcium 10.6 mg/dL (8.4-10.2); Total Bilirubin 0.8 mg/dL (0.2-1.3); Total Protein 9.1 g/dL (6.3-8.2)
[2019-05-31] MEDS ORDERED: MIDAZOLAM PF (FBP) 2 MG/2 ML VIAL IV ONE (23:09)
[2019-05-31 23:10] LABS: INR 0.9 (<1.2)
[2019-05-31 23:11] LABS: Potassium 4.6 mmol/L (3.5-5.1)
[2019-05-31 23:16] LABS: Partial Thromboplastin Time 20.2 sec (22.0-30.0)
[2019-05-31 23:58] LABS: Lymphocytes # (M) 8.36 k/uL (1.0-4.8); Monocytes # (M) 0.82 k/uL (0-1.0); Neutrophils # (M) 11.02 k/uL (1.3-7.7); Neutrophils % (M) 54 %; Nucleated Red Blood Cells 0 /100 WBC (0-0); Total Cells Counted 100
[2019-06-01] MEDS ORDERED: ASPIRIN 81 MG PO STA (00:04)
--- NOTE | 2019-06-01 00:47 | XR ---
EXAM: XR Chest, 1 View CLINICAL HISTORY: Chest pain TECHNIQUE: Frontal view of the chest. COMPARISON: No relevant prior studies available. FINDINGS: Lungs: Unremarkable. No consolidation. Pleural space: Unremarkable. No pneumothorax. Heart: Unremarkable. No cardiomegaly. Mediastinum: Unremarkable. Bones/joints: Unremarkable. IMPRESSION: Normal chest x-ray.
[2019-06-01] MEDS ORDERED: ASPIRIN 600 MG SUPP RECTAL STA (00:53)
[2019-06-01] MEDS: SODIUM CHLORIDE 0.9% 1,000 ML IV SCH ×2 (01:10→08:53)
[2019-06-01 03:45] LABS: Glucose,Whole Blood 209 mg/dL (75-99)
[2019-06-01] MEDS ORDERED: FLUMAZENIL 0.1 MG/ML 5 ML VIAL IVP STA (04:55)
--- NOTE | 2019-06-01 11:18 | MR ---
EXAMINATION TYPE: MR angio head wo con DATE OF EXAM: 06/01/2019 COMPARISON: None HISTORY: Stroke like symptoms TECHNIQUE: Time of flight images focusing on the [place] were performed without contrast.. 2-D and 3-D postprocessing imaging is performed. FINDINGS: The right vertebral artery is dominant with very diminutive caliber of the left vertebral a rtery. Basilar artery is patent feeding the patent right posterior cerebral artery. The left posterio r cerebral artery originates from the left internal carotid artery, anatomic normal variant nolvia gin. There is a patent right posterior to indicating artery. [place] is incomplete. The internal carotid arteries appear patent without hemodynamically significant stenosis. Diminutive anterior commuting artery is seen. Anterior cerebral arteries are unremarkable within normal limits. The middle cerebral arteries are patent and unremarkable. Prominent infundibulum is present of the ri ght internal carotid artery terminus at the origin of the posterior communicating artery, incidentall y noted. There is slight paucity of distal branch vessels of the right MCA in comparison to the left such as o n image 131 of series 701 IMPRESSION: 1. No large vessel occlusion. However, there is slight possibility of very distal branch vessels of t he right middle cerebral artery feeding the frontal lobe and insular cortex in comparison to the left suggesting very distal small vessel occlusion. 2. No evidence of intracranial aneurysm. Left vertebral artery and intercommunicating artery are note d to be extremely diminutive.
--- NOTE | 2019-06-01 11:35 | MR ---
EXAMINATION TYPE: MR brain wo con DATE OF EXAM: 06/01/2019 COMPARISON: NONE HISTORY: Stroke like symptoms, likely R MCA stroke TECHNIQUE: T1-weighted sagittal, T2, FLAIR, and diffusion axial, and T2 coronal coronal views of the brain are submitted. FINDINGS: There is abnormal signal on diffusion imaging within the right parietal lobe extending into the white matter. Separate focus of abnormal signal involving the right parietal occipital junction. Findings are compatible with acute ischemia. Craniocervical junction maintained. Sella turcica has a normal ap pearance. No cerebellopontine angle mass. There is nonspecific additional areas of abnormal signal in the white matter. Could not exclude an area of localized narrowing involving the cavernous segment of the righ t ICA. Caliber appears to be reduced relative to the left. This could be correlated with MRA report w [facility] is to follow . IMPRESSION: 1. Large areas of acute ischemia involving the distribution of the right parietal lobe as discussed a cliff. 2. There are areas of abnormal signal seen bilaterally within the white matter as well as the subcort ical region of the left parietal lobe which are suggestive of remote ischemic change. 3. See above regarding right cavernous segment ICA.
[2019-06-01 12:26] LABS: Glucose,Whole Blood 100 mg/dL (75-99)
--- NOTE | 2019-06-01 13:17 | P.CNPUL ---
History of Present Illness Consult date: 06/01/19 Requesting physician: Raimundo Mishra Reason for consult: other Chief complaint: Strokelike symptoms History of present illness: This is a 59-year-old female patient who follows with Dr. Sullivan as her primary care physician. She has a history of diabetes mellitus and chronic pain syndrome treated with methadone and Neurontin. Yesterday she been seen by her physician at [facility] regards to pain management and was doing quite well. Her significant other was with her throughout the day. She said last evening she went out to water the allan in front of the house and took quite some time coming back. When she went to check on her she was found face down on the ground. She was brought in by EMS with strokelike symptoms had occurred 45 minutes prior to her arrival to the ER. There is a complete left-sided paralysis and left-sided facial droop and dysarthria. Code stroke was paged. The patient to go to the computed tomography scan. At that time she was having multiple episodes of vomiting received antibiotics. Computed tomography scan revealed an occlusion noted in the right MCA bifurcation. No significant contrast being on the occlusion. She had pinpoint pupils and a history of methadone use. She was given Narcan. At that time her symptoms were reportedly or dramatically improved and she was following commands and moving her left side. Following the Narcan she appeared to be showing severe withdrawal symptoms and was given a total of 6 mg of Ativan and 2 mg of Versed. She was subsequently transferred to the intensive care unit as a selective care unit overflow. Today she was still having significant left-sided neglect. She was having waxing and waning levels of alertness. We're consulted today proximally 12:30. She is seen immediately in the intensive care unit. Chest x-ray revealed no acute pulmonary process. She is maintaining O2 saturations in the mid 90s on room air. She's having periods of snoring type respirations. She does however raise her right arm and move her right leg on command. Left arm and leg remained flaccid. MRI of the brain today reveals a large area of acute ischemia involving the distribution of the right parietal lobe compatible with acute ischemia. There were areas of abnormal signal seen bilaterally within the white matter as well as the subcortical region of the left parietal lobe suggestive of remote ischemic change. MRA of the brain revealed asymmetric caliber of the supraclinoid portion of the right internal carotid artery, smaller than on the left, incompletely occlusive thrombus is a possibility given the large area of infarct of the right middle cerebral artery distribution on the MRI. White count 20.4. Hemoglobin 6.6. Creatinine 1.72. He has been seen and evaluated by neurology services. Review of Systems ROS unobtainable: due to mental status Past Medical History Past Medical History: Diabetes Mellitus, GERD/Reflux Additional Past Medical History / Comment(s): Chronic back pain, Neuropathy, Periotonitis, bowel obstruction with adhesions History of Any Multi-Drug Resistant Organisms: None Reported Past Surgical History: Appendectomy, Bowel Resection, Hysterectomy Additional Past Surgical History / Comment(s): TENS, 16 abdominal surgeries Past Anesthesia/Blood Transfusion Reactions: No Reported Reaction Smoking Status: Current every day smoker Medications and Allergies Home Medications Medication Instructions Recorded Confirmed Type Gabapentin [Neurontin] 300 mg PO BID PRN 05/31/19 05/31/19 History Methadone [Dolophine] 10 mg PO Q8H PRN 05/31/19 05/31/19 History Omeprazole 20 mg PO DAILY 05/31/19 05/31/19 History metFORMIN HCL [Glucophage] 500 mg PO BID 05/31/19 05/31/19 History Allergies Allergy/AdvReac Type Severity Reaction Status Date / Time metoclopramide [From Reglan] Allergy Itching Verified 05/31/19 23:05 Penicillins Allergy Anaphylaxis Verified 05/31/19 23:05 Physical Exam Vitals: Vital Signs Temp Pulse Resp BP Pulse Ox 06/01/19 07:00 68 16 120/70 06/01/19 06:00 82 15 123/68 96 06/01/19 05:00 72 18 120/68 96 06/01/19 04:00 97.6 F 75 18 121/65 96 06/01/19 03:51 97.6 F 76 14 124/76 95 06/01/19 03:00 98.0 F 73 18 133/72 95 06/01/19 02:00 98.1 F 77 18 135/78 96 06/01/19 01:00 98.0 F 81 17 149/84 95 06/01/19 00:00 94 22 157/78 98 05/31/19 23:30 98 23 158/93 98 05/31/19 23:15 101 H 24 160/90 98 05/31/19 23:00 108 H 20 173/89 98 05/31/19 22:57 117 H 20 171/85 98 05/31/19 22:50 99 24 171/85 98 05/31/19 22:45 112 H 20 100/72 98 05/31/19 22:40 110 H 20 222/156 98 05/31/19 22:30 77 24 166/117 96 05/31/19 22:25 16 05/31/19 22:16 79 16 157/83 96 05/31/19 22:04 77 16 151/83 96 05/31/19 21:50 72 16 134/78 96 05/31/19 21:45 97.6 F 77 22 154/94 96 Intake and Output 05/31/19 06/01/19 06/01/19 22:59 06:59 14:59 Intake Total 20 Balance 20 Intake: IV 20 Sodium Chloride 0.9% 1, 20 000 ml @ 100 mls/hr IV . Q10H [facility] Rx#:[id number] Other: # Voids 0 Weight 70.307 kg 71.3 kg GENERAL EXAM: Snoring respirations but arousable. Protecting her airway. On room air.. HEAD: Normocephalic. EYES: Sluggish reaction of pupils. NOSE: Clear with pink turbinates. THROAT: No erythema or exudates. NECK: No masses, no JVD. CHEST: No chest wall deformity. LUNGS: Equal air entry with no crackles, wheeze, rhonchi or dullness. CVS: S1 and S2 normal with no audible murmur, regular rhythm. ABDOMEN: No hepatosplenomegaly, normal bowel sounds, no guarding or rigidity. SPINE: No scoliosis or deformity SKIN: No rashes CENTRAL NERVOUS SYSTEM: Drowsy but arousable. Left-sided flaccidity. EXTREMITIES: There is no peripheral edema. No clubbing, no cyanosis. Peripheral pulses are intact. Results - Laboratory Findings CBC and BMP: 05/31/19 22:30 05/31/19 22:30 PT/INR, D-dimer PT 10.0 sec (9.0-12.0) 05/31/19 22:30 INR 0.9 (<1.2) 05/31/19 22:30 Abnormal lab findings: Abnormal Labs 05/31/19 05/31/1905/31/19 22:28 22:30 22:30 WBC 20.4 H Hgb 16.6 H Hct 48.3 H Neutrophils # (Manual) 11.02 H Lymphocytes # (Manual) 8.36 H APTT BUN 23 H Creatinine 1.72 H Glucose 152 H POC Glucose (mg/dL) 188 H Calcium 10.6 H ALT 8 L Total Protein 9.1 H Albumin 5.2 H 05/31/19 06/01/19 06/01/19 22:30 03:34 12:13 WBC Hgb Hct Neutrophils # (Manual) Lymphocytes # (Manual) APTT 20.2 L BUN Creatinine Glucose POC Glucose (mg/dL) 209 H 100 H Calcium ALT Total Protein Albumin - Diagnostic Findings Chest x-ray: image reviewed Assessment and Plan Assessment: Impression: #1 Acute cerebrovascular accident including a large area of acute ischemia involving the distribution of the right parietal lobe. Residual left-sided flaccidity. #2 Diabetes mellitus. #3 Chronic pain syndrome. Plan: The patient was seen and evaluated by Dr. Mares. Chest x-ray, labs computed tomography scan, MRI/MRA reports reviewed. We are awaiting further input from neurology services. We'll continue to monitor her here closely in the intensive care unit. Head of the bed to remain elevated at all times. Continue close monitoring to assure patient can protect her airway. Every hour neurologic evaluations. DVT prophylaxis. GI prophylaxis. We'll continue to follow and m peter further recommendations based on her clinical status. I, the cosigning physician, performed a history & physical examination of the patient. Lungs sounds are clear. Maintaining good O2 saturations in the 90s on room air. I discussed the assessment and plan of care with my nurse practitioner, Sherri Lindsay. I attest to the above consultation as dictated by her. Time with Patient: Greater than 30
[2019-06-01] MEDS ORDERED: ENOXAPARIN 40 MG/0.4 ML SYRINGE SQ SCH (15:00)
[2019-06-01] MEDS ORDERED: ASPIRIN 300 MG SUPP RECTAL SCH (15:00)
--- NOTE | 2019-06-01 15:46 | P.CNNES ---
History of Present Illness Consult date: 06/01/19 Reason for Consult: Stroke code Chief complaint: Stroke code History of Present Illness: REFERRING PHYSICIAN: Dr. Jack Centeno HISTORY OF PRESENT ILLNESS: Thank you for allowing me to evaluate Ms. Jeniffer Coronado. Ms. Coronado 59-year-old ambidextrous woman with past medical history of diabetes and chronic pain syndrome, presented to [facility] for L-sided weakness and dysarthria. Patient was found by her significant other when patient did not come back after eating to water the allan in front of the house. She found the patient face down on the ground. Patient was found with left-sided paralysis and left-sided facial droop and dysarthria. Stroke code was called, last well-known time 8:30 PM yesterday. Patient also had pinpoint pupils at that time and a history of methadone use, for which patient was given Narcan. Reportedly patient's symptoms improved after getting Narcan. Patient also received a total of 6 levels Ativan 2 mg Versed for concerns of patient having possible severe which all symptoms to Narcan. CT head showed possible right MCA infarct, per report, as patient with history of methadone use, patient was not a candidate for thrombectomy as patient was having rapidly improving symptoms despite CT imaging findings. PAST MEDICAL HISTORY: Diabetes, GERD, chronic pain, neuropathy PAST SURGICAL HISTORY: Appendectomy, bowel resection, hysterectomy HOME MEDICATIONS: Gabapentin 300 mg twice a day when necessary, methadone 10 mg by mouth every 8 hours when necessary, omeprazole 20 mg daily, metformin 500 mg twice a day ALLERGIES: Reglan, penicillin SOCIAL HISTORY: Per report, patient is a current every day smoker. No known alcohol or drug abuse history FAMILY HISTORY: unknown at this time REVIEW OF SYS: The 14 systems are reviewed and no additional points are identified compared to the review of systems documented history and physical PHYSICAL EXAMINATION: VITAL SIGNS: Temperature 97.6 pulse 75 respiration rate 18 blood pressure 121/60 502 saturation 96% on room air GEN.: In around in her bed due to discomfort. Requires a lot of verbal stimuli to have patient answers some questions HEENT: NCAT, sclera without icterus SKIN AND EXTREMITIES: Warm to touch, no edema NEURO: MENTAL STATUS: Patient takes a lot of effort to encourage her to open her eyes. Patient only able to open her right eye. Patient eventually was able to say her name, hospital, 2019. Patient was able to name and repeat. CRANIAL NERVES II THROUGH XII: II: Pupils are equal and reactive to light symmetrically. Blinks to threat mostly in the right visual field only. Patient with right-sided gaze preference. III, IV, : Difficulty opening her left eye. Vleft facial droop. XII: Tongue midline without fasciculation or atrophy. MOTOR: Decreased tone in left upper and lower extremities. Spontaneous movement of right upper and lower extremities. Left upper and lower extremities withdraws to pain SENSORY: Withdraws to pain in all 4 extremities REFLEXES: 2+ throughout. Toes are downgoing COORDINATION: Deferred GAIT: Deferred DIAGNOSTIC TESTING: Laboratory: WBC 20.4 hemoglobin 16.6 platelets 346 PT 10.0 INR 0.9 sodium 140 potassium 4.6 chloride 101 bicarb 22 BUN 23 creatinine 1.72 glucose 152 AST 31 ALT 8 troponins 0.014 Imaging: CT head without contrast 05/31/2019: Question subtle loss of the powell white differentiation within the right MCA distribution which may represent early infarct. No acute hemorrhage. CT CTA head and neck with contrast 05/31/2019: Mild stenosis of the proximal left ICA secondary to non-calcific atheromatous disease. Small amount of soft plaque noted at the bifurcation of the right carotid and subclavian artery. MRI of brain without contrast 06/01/2019 Large area of acute ischemia involving the discretion of the right parietal lobe. There are areas of abnormal signal seen bilaterally within the white matter as well as the subcortical region of the left parietal lobe which are suggestive of remote ischemic change. Right cavernous segment ICA with possible narrowing. MRA head 06/01/2019: An addendum, asymmetric caliber of the supraclinoid portion of the right ICA incompletely occlusive thrombosis a possibility given the large area of infarct of the right MCA distribution of the MRI. No large vessel occlusion. However, there is slight possibility of distal branch vessels of the right MCA feeding the frontal lobe and insular cortex in comparison to the left suggesting. Distal small vessel occlusion of the right. No evidence of intracranial aneurysm. Left vertebral artery and intermediate artery noted to be very diminutive ASSESSMENT and PLAN: Ms. Coronado 59-year-old ambidextrous woman with past medical history of diabetes and chronic pain syndrome, presented to [facility] for L-sided weakness and dysarthria, found on CTA head showing possible right MCA occlusion, but patient was initially not considered a candidate for thrombectomy as patient had rapid improvement in her symptoms. However, patient with significant left-sided weakness, right gaze deviation, moderate dysarthria, some confusion at this time. MRI shows acute ischemia in the right parietal lobe. Stroke etiology large vessel occlusion, could be cardioembolic vs. [id number]. Patient with a sizable stroke on MRI. At this time, discussing with the neurointerventionalist at [facility] for consideration of hemicrania watch. RECOMMENDATIONS: 1. Neuro checks every hour 2. Remain in ICU 3. Cardiac monitoring and transthoracic echocardiogram if patient doesn't of staying at [facility]. 4. TSH, FLP, A1C Past Medical History Past Medical History: Diabetes Mellitus, GERD/Reflux Additional Past Medical History / Comment(s): Chronic back pain, Neuropathy, Periotonitis, bowel obstruction with adhesions History of Any Multi-Drug Resistant Organisms: None Reported Past Surgical History: Appendectomy, Bowel Resection, Hysterectomy Additional Past Surgical History / Comment(s): TENS, 16 abdominal surgeries Past Anesthesia/Blood Transfusion Reactions: No Reported Reaction Smoking Status: Current every day smoker Medications and Allergies Home Medications Medication Instructions Recorded Confirmed Type Gabapentin [Neurontin] 300 mg PO BID PRN 05/31/19 05/31/19 History Methadone [Dolophine] 10 mg PO Q8H PRN 05/31/19 05/31/19 History Omeprazole 20 mg PO DAILY 05/31/19 05/31/19 History metFORMIN HCL [Glucophage] 500 mg PO BID 05/31/19 05/31/19 History Allergies Allergy/AdvReac Type Severity Reaction Status Date / Time metoclopramide [From Reglan] Allergy Itching Verified 05/31/19 23:05 Penicillins Allergy Anaphylaxis Verified 05/31/19 23:05 Physical Examination - Vital Signs Vital Signs: Vital Signs Temp Pulse Resp BP Pulse Ox 06/01/19 07:00 68 16 120/70 06/01/19 06:00 82 15 123/68 96 06/01/19 05:00 72 18 120/68 96 06/01/19 04:00 97.6 F 75 18 121/65 96 06/01/19 03:51 97.6 F 76 14 124/76 95 06/01/19 03:00 98.0 F 73 18 133/72 95 06/01/19 02:00 98.1 F 77 18 135/78 96 06/01/19 01:00 98.0 F 81 17 149/84 95 06/01/19 00:00 94 22 157/78 98 05/31/19 23:30 98 23 158/93 98 05/31/19 23:15 101 H 24 160/90 98 05/31/19 23:00 108 H 20 173/89 98 05/31/19 22:57 117 H 20 171/85 98 05/31/19 22:50 99 24 171/85 98 05/31/19 22:45 112 H 20 100/72 98 05/31/19 22:40 110 H 20 222/156 98 05/31/19 22:30 77 24 166/117 96 05/31/19 22:25 16 05/31/19 22:16 79 16 157/83 96 05/31/19 22:04 77 16 151/83 96 05/31/19 21:50 72 16 134/78 96 05/31/19 21:45 97.6 F 77 22 154/94 96 Intake and Output 06/01/19 06/01/19 06/01/19 06:59 14:59 22:59 Intake Total 20 Balance 20 Intake: IV 20 Sodium Chloride 0.9% 1, 20 000 ml @ 100 mls/hr IV . Q10H [facility] Rx#:[id number] Other: # Voids 0 Weight 71.3 kg Results - Laboratory Findings CBC and BMP: 05/31/19 22:30 05/31/19 22:30 Abnormal Lab Findings: Abnormal Labs 05/31/19 05/31/19 05/31/19 22:28 22:30 22:30 WBC 20.4 H Hgb 16.6 H Hct 48.3 H Neutrophils # (Manual) 11.02 H Lymphocytes # (Manual) 8.36 H APTT BUN 23 H Creatinine 1.72 H Glucose 152 H POC Glucose (mg/dL) 188 H Calcium 10.6 H ALT 8 L Total Protein 9.1 H Albumin 5.2 H 05/31/19 06/01/19 06/01/19 22:30 03:34 12:13 WBC Hgb Hct Neutrophils # (Manual) Lymphocytes # (Manual) APTT 20.2 L BUN Creatinine Glucose POC Glucose (mg/dL) 209 H 100 H Calcium ALT Total Protein Albumin
[2019-06-01 16:25] VITALS: TEMP 98.1
[2019-06-01] MEDS: INSULIN ASPART (NovoLOG) 100 UNIT/ML VIAL SQ SCH ×2 (16:38→17:31)
[2019-06-01 17:38] LABS: Glucose,Whole Blood 114 mg/dL (75-99)
--- NOTE | 2019-06-01 18:05 | P.HPIM ---
History of Present Illness H&P Date: 06/01/19 Chief Complaint: Stroke History of presenting complaint: This is a 59-year-old patient of Dr. Sullivan. Chronic stable medical conditions include diabetes mellitus type 2, GERD, chronic low back pain from arthritis, peripheral neuropathy. Long-standing smoker. Yesterday evening patient was taking care of the floor bed. When a significant other came out shows found face down. Patient is found to have left-sided weakness, facial droop and dysarthria. In the ER it was reported that they did contact the stroke team. It seems the patient's NIH scale did significantly improve hence patient was not felt to be a candidate for thrombolysis. Patient also takes methadone. Hence it was felt to contract reviewed taking to presentation. She was given Narcan in the ER. She also did improve with the same. She is also given Ativan 2 mg 3 times. For agitation. Patient presents to the ICU. Saw this patient earlier today. Patient's significant other the bedside. Patient also not able to give any history. Patient not felt to be safe to swallow. Patient only is making sounds. Not able to speak Review of systems: Cannot be done as patient is not able to speak Past medical history to include: Diabetes mellitus type 2, GERD, chronic back pain from arthritis, peripheral neuropathy peritonitis Social history: Lives with her significant other female partner and his and . Smoker. Occasional marijuana. 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 Physical examination: VITAL SIGNS: 97.6, 77, 22, 154.94, 96% room air on presentation GENERAL: Average built, laying in bed, sometimes restless. EYES: Pupils equal. Conjunctiva normal. HEENT: External appearance of nose and ears normal, oral cavity grossly normal. NECK: JVD unable to assess; masses not palpable. HEART: First and second heart sounds are normal; no edema. LUNGS: Respiratory rate normal; decreased breath sound, mild wheezing. ABDOMEN: Soft, nontender, liver spleen not palpable, no masses palpable. PSYCH: Unable to assess as patient is on speakingl. NEUROLOGICAL: No obvious facial asymmetry, speech is mainly garbled. Decreased power on the left side. Power in the left arm is 0/5 and the left leg 1-2/5.. LYMPHATICS: No lymph nodes palpable in the axilla and neck INVESTIGATIONS, reviewed in the clinical context: CT angiogram head-unremarkable CT of the head with spine-nil acute Thoracic aorta -CT unremarkable Chest x-ray film personally reviewed by me unremarkable EKG tracing-personally reviewed by me sinus rhythm, poor baseline MRI brain-abnormal signal within the right parietal lobe extending into the white matter. Separate focus of abnormal signal involving the right parietal occipital junction. MRA-node large facial occlusion. Slight possibility of distal branch vessel of the right middle cerebral artery feeding the frontal lobe White count 20.4 platelets 346 potassium 4.6 bun 23 creatinine was 1.72 to Accu-Cheks 209, 100 Assessment: -Acute stroke and a right-handed patient has affecting the right middle cerebral artery, causing severe dysarthria and left-sided paresis -Acute dysarthria from above -Chronic nicotine dependence patient cigarette smoker -Diabetes mellitus type 2 -GERD -Diabetic peripheral neuropathy -GERD Plan: Patient is getting rectal aspirin. Neurology was consulted. Patient admitted to the ICU. Endocrinology Nurse was consulted. I was informed that the neurology team from [facility] may be reaching out to me for transferred there. We will await the same. In the meantime patient will have aspiration precautions. Neuro checks. Speak to the significant other the patient may need NG tube if transfer doesn't occur for her medications. We'll also order nicotine patch. Prognosis guarded Past Medical History Past Medical History: Diabetes Mellitus, GERD/Reflux Additional Past Medical History / Comment(s): Chronic back pain, Neuropathy, Periotonitis, bowel obstruction with adhesions History of Any Multi-Drug Resistant Organisms: None Reported Past Surgical History: Appendectomy, Bowel Resection, Hysterectomy Additional Past Surgical History / Comment(s): TENS, 16 abdominal surgeries Past Anesthesia/Blood Transfusion Reactions: No Reported Reaction Smoking Status: Current every day smoker Medications and Allergies Home Medications Medication Instructions Recorded Confirmed Type Gabapentin [Neurontin] 300 mg PO BID PRN 05/31/19 05/31/19 History Methadone [Dolophine] 10 mg PO Q8H PRN 05/31/19 05/31/19 History Omeprazole 20 mg PO DAILY 05/31/19 05/31/19 History metFORMIN HCL [Glucophage] 500 mg PO BID 05/31/19 05/31/19 History Allergies Allergy/AdvReac Type Severity Reaction Status Date / Time metoclopramide [From Reglan] Allergy Itching Verified 05/31/19 23:05 Penicillins Allergy Anaphylaxis Verified 05/31/19 23:05 Physical Exam Vitals: Vital Signs Temp Pulse Resp BP Pulse Ox 06/01/19 07:00 68 16 120/70 06/01/19 06:00 82 15 123/68 96 06/01/19 05:00 72 18 120/68 96 06/01/19 04:00 97.6 F 75 18 121/65 96 06/01/19 03:51 97.6 F 76 14 124/76 95 06/01/19 03:00 98.0 F 73 18 133/72 95 06/01/19 02:00 98.1 F 77 18 135/78 96 06/01/19 01:00 98.0 F 81 17 149/84 95 06/01/19 00:00 94 22 157/78 98 05/31/19 23:30 98 23 158/93 98 05/31/19 23:15 101 H 24 160/90 98 05/31/19 23:00 108 H 20 173/89 98 05/31/19 22:57 117 H 20 171/85 98 05/31/19 22:50 99 24 171/85 98 05/31/19 22:45 112 H 20 100/72 98 05/31/19 22:40 110 H 20 222/156 98 05/31/19 22:30 77 24 166/117 96 05/31/19 22:25 16 05/31/19 22:16 79 16 157/83 96 05/31/19 22:04 77 16 151/83 96 05/31/19 21:50 72 16 134/78 96 05/31/19 21:45 97.6 F 77 22 154/94 96 Intake and Output 05/31/19 06/01/19 06/01/19 22:59 06:59 14:59 Intake Total 20 Balance 20 Intake: IV 20 Sodium Chloride 0.9% 1, 20 000 ml @ 100 mls/hr IV . Q10H [facility] Rx#:[id number] Other: # Voids 0 Weight 70.307 kg 71.3 kg Results CBC & Chem 7: 05/31/19 22:30 05/31/19 22:30 Labs: Abnormal Lab Results - Last 24 Hours (Table) 05/31/19 05/31/19 05/31/19 Range/Units 22:28 22:30 22:30 WBC 20.4 H (3.8-10.6) k/uL Hgb 16.6 H (11.4-16.0) gm/dL Hct 48.3 H (34.0-46.0) % Neutrophils # (Manual) 11.02 H (1.3-7.7) k/uL Lymphocytes # (Manual) 8.36 H (1.0-4.8) k/uL APTT (22.0-30.0) sec BUN 23 H (7-17) mg/dL Creatinine 1.72 H (0.52-1.04) mg/dL Glucose 152 H (74-99) mg/dL POC Glucose (mg/dL) 188 H (75-99) mg/dL Calcium 10.6 H (8.4-10.2) mg/dL ALT 8 L (9-52) U/L Total Protein 9.1 H (6.3-8.2) g/dL Albumin 5.2 H (3.5-5.0) g/dL 05/31/19 06/01/19 06/01/19 Range/Units 22:30 03:34 12:13 WBC (3.8-10.6) k/uL Hgb (11.4-16.0) gm/dL Hct (34.0-46.0) % Neutrophils # (Manual) (1.3-7.7) k/uL Lymphocytes # (Manual) (1.0-4.8) k/uL APTT 20.2 L (22.0-30.0) sec BUN (7-17) mg/dL Creatinine (0.52-1.04) mg/dL Glucose (74-99) mg/dL POC Glucose (mg/dL) 209 H 100 H (75-99) mg/dL Calcium (8.4-10.2) mg/dL ALT (9-52) U/L Total Protein (6.3-8.2) g/dL Albumin (3.5-5.0) g/dL Thrombosis Risk Factor Assmnt - Choose All That Apply Any of the Below Risk Factors Present?: Yes Each Factor Represents 1 point: Obesity (BMI >25) Other Risk Factors: Yes Each Risk Factor Represents 2 Points: Age 61-74 years Other congenital or acquired thrombophilia - If yes, enter type in comment: No Each Risk Factor Represents 5 Points: Stroke (< 1 month) Thrombosis Risk Factor Assessment Total Risk Factor Score: 8 Thrombosis Risk Factor Assessment Level: High Risk
[2019-06-01] MEDS ORDERED: IPRATROPIUM-ALBUTEROL 3 ML NEB INHALATION SCH (18:15)
[2019-06-01] MEDS ORDERED: NICOTINE 21MG/24HR PATCH TRANSDERM SCH (18:15)
[2019-06-01 18:47] VITALS: BP 162/117; PULSE 60; RESP 20
[2019-06-01] MEDS ORDERED: ATORVASTATIN 80 MG TAB PO SCH (21:00)
--- NOTE | 2019-06-02 07:59 | CDI ---
Documentation Clarification Form Date: 06/02/19 From: Krissy Browne Phone: If you have a question regarding this query, please contact Monika Hughes at [phone] between 8am and 5pm. Admit Date: 06/01/2019 12:52:00 AM Patient Name: Jeniffer Coronado Visit Number: [id number] Discharge Date: 06/01/2019 3:20:00 PM ATTENTION: The Clinical Documentation Specialists (CDI) and [facility] Coding Staff appreciate your assistance in clarifying documentation. Please respond to the clarification below the line at the bottom and electronically sign. The CDI & [facility] Coding staff will review the response and follow-up if needed. Please note: Queries are made part of the Legal Health Record. If you have any questions, please contact the author of this message via ITS. Dr. Raimundo Mishra Patient was admitted for CVA with left facial droop, left side weakness and dysarthria. Dr. Puente documented that the patient had some confusion in his consult note. History/Risk Factors: CVA with left weakness, left face droop and dysarthia. Methadone use for chronic pain syndrorme. Clinical Indicators: Confusion Labs: WBC 20.4, Hgb 16.6, Hct 48.3, BUN 23, Creatinine 1.72, Glucose 152, Calcium 10.6, ALT 8, Total Protein 9.1, Albumin 5.2. CT: With Contrast: Occlusion is noted at the right MCA bifurcation. No significant contrast seen beyond the occlusion. CT: Without Contrast: Question subtle loss of the powell-white differentiation within the right MCA distribution which may represent early infarct. MRI: 1. No large vessel occlusion. However, there is slight paucity of the distal branch vessels of the right MCA feeding the frontal lobe and insular cortex in comparison to the left suggesting very distal small vessel occlusion on the right. 2. No evidence of intracranial aneurysm. Left vertebral artery and intercommunicating artery are noted to be extremely diminutive. Treatment: IV Narcan 2 mg once, IV fluids at 100 mls/hr In your professional opinion, please clarify the etiology of the Confusion, if known. Delirium (specify cause): Dementia (if know, specify Type and if with/without Behavioral Disturbance) Encephalopathy (specify Type and Underlying Medical Illness) Other condition (please specify) Unable to determine unable to determine MTDD
--- NOTE | 2019-06-03 00:45 | P.DS ---
Providers Date of admission: 06/01/19 00:52 Expected date of discharge: 06/01/19 Attending physician: Raimundo Mishra Consults: 06/01/19 00:51 Consult Physician Routine Consulting Provider: Janell Puente Consult Reason/Comments: cva Do you want consulting provider notified?: Yes 06/01/19 12:16 Consult Physician Urgent Consulting Provider: Joaquin Mares Consult Reason/Comments: critical care Do you want consulting provider notified?: Yes Primary care physician: Tanner Sullivan Hospital Course: Chief Complaint: Stroke Hospital course: This is a 59-year-old patient of Dr. Sullivan. Chronic stable medical conditions include diabetes mellitus type 2, GERD, chronic low back pain from arthritis, peripheral neuropathy. Long-standing smoker. Yesterday evening patient was taking care of the floor bed. When a significant other came out shows found face down. Patient is found to have left-sided weakness, facial droop and dysarthria. In the ER it was reported that they did contact the stroke team. It seems the patient's NIH scale did significantly improve hence patient was not felt to be a candidate for thrombolysis. Patient also takes methadone. Hence it was felt to contract reviewed taking to presentation. She was given Narcan in the ER. She also did improve with the same. She is also given Ativan 2 mg 3 times. For agitation. Patient presents to the ICU. Saw this patient earlier today. Patient's significant other the bedside. Patient also not able to give any history. Patient not felt to be safe to swallow. Patient only is making sounds. Not able to speak. Patient had radiological studies done as noted below. Showing stroke in the right posterior cerebral artery. I spoke to the physician at [facility] who will be accepting the the patient to his partner . Paperwork was done. Discussion and discharge planning more than 35 minutes Physical examination: VITAL SIGNS: 98.1, 58, 15, 140/77, 95% GENERAL: Average built, laying in bed, sometimes restless. EYES: Pupils equal. Conjunctiva normal. HEENT: External appearance of nose and ears normal, oral cavity grossly normal. NECK: JVD unable to assess; masses not palpable. HEART: First and second heart sounds are normal; no edema. LUNGS: Respiratory rate normal; decreased breath sound, mild wheezing. ABDOMEN: Soft, nontender, liver spleen not palpable, no masses palpable. PSYCH: Unable to assess as patient is on speakingl. NEUROLOGICAL: No obvious facial asymmetry, speech is mainly garbled. Decreased power on the left side. Power in the left arm is 0/5 and the left leg 1-2/5.. INVESTIGATIONS, reviewed in the clinical context: CT angiogram head-unremarkable CT of the head with spine-nil acute Thoracic aorta -CT unremarkable Chest x-ray film personally reviewed by me unremarkable EKG tracing-personally reviewed by me sinus rhythm, poor baseline MRI brain-abnormal signal within the right parietal lobe extending into the white matter. Separate focus of abnormal signal involving the right parietal occipital junction. MRA-node large facial occlusion. Slight possibility of distal branch vessel of the right middle cerebral artery feeding the frontal lobe White count 20.4 platelets 346 potassium 4.6 bun 23 creatinine was 1.72 to Accu-Cheks 209, 100 Assessment: -Acute stroke and a right-handed patient has affecting the right middle cerebral artery, causing severe dysarthria and left-sided paresis -Acute dysarthria from above -Chronic nicotine dependence patient cigarette smoker -Diabetes mellitus type 2 -GERD -Diabetic peripheral neuropathy -GERD Disposition: Transfer to [facility] For higher level of care. Accepting physician Patient Condition at Discharge: Undetermined Plan - Discharge Summary Discharge Rx Participant: No New Discharge Prescriptions: No Action metFORMIN HCL [Glucophage] 500 mg PO BID Methadone [Dolophine] 10 mg PO Q8H PRN PRN Reason: Pain Gabapentin [Neurontin] 300 mg PO BID PRN PRN Reason: Pain Omeprazole 20 mg PO DAILY Discharge Medication List Gabapentin [Neurontin] 300 mg PO BID PRN 05/31/19 [History] Methadone [Dolophine] 10 mg PO Q8H PRN 05/31/19 [History] Omeprazole 20 mg PO DAILY 05/31/19 [History] metFORMIN HCL [Glucophage] 500 mg PO BID 05/31/19 [History] Follow up Appointment(s)/Referral(s): None,Stated [REFERRING] - 1-2 days Discharge Disposition: TRANSFER TO [facility]
== END 2019-06-01 15:20 | disposition short-term general hospital (02) | DRG 65 ==
LOC: EC 21:41 → MERGE 06-01 00:52 → 3SCARD 06-01 00:52 → 2SICU 06-01 02:57
PROVIDERS: ADMIT Hospitalist; ATTEND Hospitalist
DX: I63.511 Cerebral infarction due to unspecified occlusion or stenosis of right middle cerebral artery (principal); G81.04 Flaccid hemiplegia affecting left nondominant side; E11.22 Type 2 diabetes mellitus with diabetic chronic kidney disease; E11.42 Type 2 diabetes mellitus with diabetic polyneuropathy; R47.1 Dysarthria and anarthria; R41.0 Disorientation, unspecified; R29.810 Facial weakness; R29.730 NIHSS score 30; D72.829 Elevated white blood cell count, unspecified; F17.210 Nicotine dependence, cigarettes, uncomplicated; G89.4 Chronic pain syndrome; K21.9 Gastro-esophageal reflux disease without esophagitis; N18.9 Chronic kidney disease, unspecified; M47.9 Spondylosis, unspecified; E66.9 Obesity, unspecified; Z68.26 Body mass index [BMI] 26.0-26.9, adult; Z79.84 Long term (current) use of oral hypoglycemic drugs; Z79.899 Other long term (current) drug therapy; Z79.891 Long term (current) use of opiate analgesic; Z88.0 Allergy status to penicillin; Z88.8 Allergy status to other drugs, medicaments and biological substances; Z90.710 Acquired absence of both cervix and uterus; Z90.49 Acquired absence of other specified parts of digestive tract
CPT/HCPCS: 36415; 70450; 70496; 70498; 70544; 70551; 71045; 71275; 72125; 74174; 80053; 84484; 85025; 85610; 85730; 93005; 96374; 96375; 96376; 99291

== ENCOUNTER → 2020-09-11 | Outpatient (CLI) | payer OTHER ==
[2020-09-11 16:21] LABS: Basophils # (A) 0.1 k/uL (0-0.2); Basophils % (A) 1 %; Eosinophils # (A) 0.2 k/uL (0-0.7); Eosinophils % (A) 2 %; HCT 42.5 % (34.0-46.0); HGB 13.3 gm/dL (11.4-16.0); Lymphocytes % (A) 34 %; MCHC 31.3 g/dL (31.0-37.0); Mean Platelet Volume 7.4; Monocytes # (A) 0.5 k/uL (0-1.0); Monocytes % (A) 5 %; Neutrophils # (A) 5.2 k/uL (1.3-7.7); Neutrophils % (A) 58 %; Platelet Count 341 k/uL (150-450); RBC 4.29 m/uL (3.80-5.40); RDW 14.9 % (11.5-15.5)
[2020-09-12 02:15] LABS: Total Bilirubin 0.2 mg/dL (0.3-1.2)
[2020-09-12 04:01] LABS: Valproic Acid (Depakene) 12.2 ug/mL (50.0-100.0)
== END | disposition home or self-care (01) ==
LOC: LABWHC1 15:05
PROVIDERS: ATTEND Psychiatry & Neurology Neurology
DX: K74.69 Other cirrhosis of liver (principal); R53.83 Other fatigue; G40.019 Localization-related (focal) (partial) idiopathic epilepsy and epileptic syndromes with seizures of localized onset, intractable, without status epilepticus
CPT/HCPCS: 36415; 80164; 82247; 84450; 84460; 85025

== ENCOUNTER → 2020-09-16 | Outpatient (CLI) | payer OTHER ==
--- NOTE | 2020-09-16 08:41 | MR ---
EXAMINATION TYPE: MR angio head wo con DATE OF EXAM: 09/16/2020 8:05 AM COMPARISON: 06/01/2019 HISTORY: Seizures, F/U aneurysm, hx stroke Three-dimensional nuem-tp-arahzh intracranial MRA was performed with multiple intensity projection im ages submitted and source data reviewed at the workstation. The vertebrobasilar system as well as intracranial portions of the internal carotid arteries and thei r major tributaries are patent. I do not see evidence for sizable aneurysm or vascular malformation. Family diminutive left vertebral artery is redemonstrated. IMPRESSION: No evidence for aneurysm at this time. [place] left vertebral artery.
--- NOTE | 2020-09-16 10:02 | MR ---
EXAMINATION TYPE: MR brain wo/w con DATE OF EXAM: 09/16/2020 8:46 AM COMPARISON: June 01, 2019 HISTORY: Seizures, F/U aneurysm, hx stroke FINDINGS: The ventricles, basal cisterns and sulci overlying the cerebral convexities are mildly enlarged. There is evidence of mild periventricular white matter ischemic demyelination. Remote insult right MCA territory moderate to large in size with surrounding lordosis. Additional rem ote insult high posterior left parietal lobe. No acute edema is seen on diffusion weighted imaging. There is no evidence for midline shift or mass effect. Acute intracranial hemorrhage or extra-axial collection is not evident. The paranasal sinuses and mastoid air cells are well-aerated. IMPRESSION: Age-related atrophic and chronic small vessel ischemic change. No acute intracranial process at this time. Remote insult noted.
== END | disposition home or self-care (01) ==
LOC: RADMRIMAIN 07:31
PROVIDERS: ATTEND Psychiatry & Neurology Neurology
DX: G31.1 Senile degeneration of brain, not elsewhere classified (principal); I67.82 Cerebral ischemia; Z88.0 Allergy status to penicillin; Z88.8 Allergy status to other drugs, medicaments and biological substances
CPT/HCPCS: 70544; 70553; A9585

== ENCOUNTER → 2020-12-25 | Outpatient (CLI) | payer OTHER ==
--- NOTE | 2020-12-26 04:24 | MR ---
EXAMINATION TYPE: MR thoracic spine wo con DATE OF EXAM: 12/25/2020 COMPARISON: None HISTORY: Pain and loss of movement in RT side from shoulder to hip Multiplanar multiecho imaging of the thoracic spine was performed without contrast. Thoracic vertebra have overall fairly normal alignment. There is very slight anterior wedging of of T 2 and T3 and T4 and T5 with slight increased kyphotic curvature. I see no significant bone edema to s uggest an acute fracture. The thoracic spinal cord has normal signal pattern. There is no edema. Ther e is no evidence of thoracic spinal stenosis. There is no paraspinal mass. I see no focal bone destru ction. The posterior elements are intact. IMPRESSION: Slight wedging of several upper thoracic vertebra as above mild osteoporotic old compression fracture s. No acute fracture seen. There is limited evaluation of the cervical spine and evidence of mild multilevel cervical spinal hazel nosis. Canal is narrowed to approximately 6 mm. No evidence of cord edema.
== END ==
LOC: RADMRIMAIN 12:32
PROVIDERS: ATTEND Anesthesiology
DX: M54.6 Pain in thoracic spine (principal)
CPT/HCPCS: 72146

== ENCOUNTER → 2022-06-06 | Outpatient (CLI) | payer OTHER ==
[2022-06-06 18:48] LABS: HCT 31.6 % (37.2-46.3); HGB 10.9 g/dL (12.0-15.0); MCH 32.1 pg (27.0-32.0); MCHC 34.5 g/dL (32.0-37.0); MCV 92.9 fL (80.0-97.0); Mean Platelet Volume 10.3 fL (9.5-12.2); NRBC Per 100 WBC 0 /100 WBCS (0.0-0.0); Platelet Count 337 X 10*3/uL (140-440); RDW 13.5 % (11.5-14.5); WBC 8.65 X 10*3/uL (4.50-10.00)
== END | disposition home or self-care (01) ==
LOC: LABWHC1 12:17
PROVIDERS: ATTEND Internal Medicine Gastroenterology
DX: K62.5 Hemorrhage of anus and rectum (principal)
CPT/HCPCS: 36415; 85027

== ENCOUNTER 2022-08-09 07:08 | Day surgery (SDC) | payer OTHER ==
[2022-08-08 09:42] VITALS: BMI 20.3
[~2022-08-09 07:08] MED LIST: LACTATED RINGERS 1,000 ML IV SCH
[2022-08-09 07:39] VITALS: TEMP 98
[2022-08-09 07:50] LABS: Glucose,Whole Blood 125 mg/dL (70-110)
[2022-08-09] MEDS ORDERED: LACTATED RINGERS 1,000 ML IV ONE (07:50)
[2022-08-09] MEDS ORDERED: PROPOFOL 10 MG/ML 20 ML VIAL IV ONE (08:39)
--- NOTE | 2022-08-09 08:58 | P.PCN ---
Date of Procedure: 08/09/22 Procedure(s) Performed: BRIEF HISTORY: Patient is a 62-year-old pleasant female scheduled for an elective colonoscopy as a part of evaluation of intermittent episodes of lower abdominal pain associated with rectal bleeding and diarrhea since April this year. She is been hospitalized in May and June of this year. She had CT of abdomen and pelvis done on both occasions that Showed Thickening of the Sigmoid Colon Consistent with Acute Colitis. She Was Treated with Antibiotics on 3 Different Occasions and Still Remains Symptomatic. Currently she is having 10-12 loose watery bowel movements daily with intermittent bleeding. She lost about 30 pounds since onset of the symptoms. PROCEDURE PERFORMED: Colonoscopy with biopsy PREOPERATIVE DIAGNOSIS: And lower abdominal pain, rectal bleeding and diarrhea of 3 months duration. IV sedation per Anesthesia. PROCEDURE: After informed consent was obtained, the patient, was brought into the endoscopy unit. IV sedation was administered by Anesthesia under continuous monitoring. Digital rectal examination was normal. Initially the Olympus CF-160 flexible video colonoscope was then inserted in the rectum, gradually advanced into the transverse colon and further advancement was not possible because of extremely poor prep and solid stool was encountered and this area. There was some solid stool noted throughout the colon and thorough irrigation was performed. Mucosa of the, transverse colon, descending colon, appeared normal. In the sigmoid colon there were patchy areas of colitis with scattered ulcerations suspicious for ischemic colitis and biopsies were done from this area. Mucosa of the rectum appeared normal. Retroflexion was performed in the rectum and no lesions were seen. The patient tolerated the procedure well. IMPRESSION: Scattered ulcerations with erythema noted in the sigmoid colon suspicious for acute ischemic colitis Poor prep throughout the colon Scope was advanced only up to the transverse colon and procedure terminated because of extremely poor prep RECOMMENDATIONS: Findings of this examination were discussed with the patient as well as a family. Likely her diarrhea is related to spurious diarrhea from chronic constipation. At this time will await the biopsy results. Start on MiraLAX 1 scoop twice daily and avoid antimotility agents. She'll be seen in office in 2 weeks..
[2022-08-09 09:19] VITALS: BP 124/67; PULSE 64; RESP 20
== END 2022-08-09 09:49 ==
LOC: ORWHC2ENDO 07:08
PROVIDERS: ATTEND Internal Medicine Gastroenterology
DX: K62.5 Hemorrhage of anus and rectum (principal); K52.9 Noninfective gastroenteritis and colitis, unspecified; G40.909 Epilepsy, unspecified, not intractable, without status epilepticus; F17.210 Nicotine dependence, cigarettes, uncomplicated; I63.9 Cerebral infarction, unspecified; Z90.49 Acquired absence of other specified parts of digestive tract; K56.609 Unspecified intestinal obstruction, unspecified as to partial versus complete obstruction; Z79.899 Other long term (current) drug therapy; Z88.0 Allergy status to penicillin
CPT/HCPCS: 45380; J2704; 88305

== ENCOUNTER → 2025-03-07 | Outpatient (CLI) | payer MEDICARE, OTHER ==
[2025-03-07 11:30] LABS: Basophils % (A) 0.6 %; Eosinophils # (A) 0.17 10*3/uL (0.04-0.35); Eosinophils % (A) 1.1 %; HGB 16.1 g/dL (12.0-15.0); Lymphocytes # (A) 3.96 10*3/uL (0.90-5.00); Lymphocytes % (A) 25.4 %; MCH 33.1 pg (27.0-32.0); MCHC 35.8 g/dL (32.0-37.0); MCV 92.6 fL (80.0-97.0); Mean Platelet Volume 9.3 fL (9.5-12.2); Monocytes # (A) 0.94 10*3/uL (0.20-1.00); Neutrophils % (A) 66.6 %; Platelet Count 456 10*3/uL (140-440); RBC 4.86 10*6/uL (4.10-5.20); RDW 13.6 % (11.5-14.5); WBC 15.62 10*3/uL (4.50-10.00)
== END | disposition home or self-care (01) ==
LOC: LABWHC1 10:46
PROVIDERS: ATTEND Physician Assistant Medical
DX: D75.839 Thrombocytosis, unspecified (principal)
CPT/HCPCS: 36415; 85025